=== PATIENT | female | born 2005 | race Caucasian/White ===

== ENCOUNTER 2025-04-13 16:59 | Outpatient (OUT) | payer OTHER, SELFPAY ==
[2025-04-13 17:41] LABS: Alanine Aminotransferase 20 U/L (14-59); Albumin Globulin Ratio 0.9; Albumin Level 3.7 g/dL (3.4-5.0); Alkaline Phosphatase 61 U/L (46-116); Anion Gap 16.3; Aspartate Amino Transferase 14 U/L (15-37); BUN Creatinine Ratio 13.7; Bilirubin Total 0.8 mg/dL (0.2-1.0); Calcium 9.2 mg/dL (8.5-10.1); Chloride 104 mmol/L (98-107); Estimated GFR (African America >60 (>=60 mL/min/1.73m^2); Estimated GFR (Non-African Ame >60 (>=60 mL/min/1.73m^2); Glucose 183 mg/dL (74-106); Potassium 4.3 mmol/L (3.5-5.1); Sodium 140 mmol/L (136-145); Total Protein 7.7 g/dL (6.4-8.2)
== END 2025-04-13 17:00 | disposition home or self-care (01) ==
DX: E84.8 Cystic fibrosis with other manifestations (principal)
CPT/HCPCS: 36415; 80053

== ENCOUNTER 2025-08-25 16:51 | Outpatient (OUT) | payer OTHER, SELFPAY ==
--- OUTSIDE RECORDS SUMMARY | 2025-08-16 14:45 | XMS_ITS | Encounter Summary ---
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 Name Role Phone Facundo Nina MD Primary Care Provider [phone] Source Comments In the event this information is protected by the Federal Confidentiality of Alcohol and Drug AbusePatient Records regulations: The Federal rules restrict any use of the information to criminally investigate or prosecute any alcohol or drug abuse patient.[facility] Reason for Visit * ReasonCommentsSpirometry * Outpatient Procedure (Routine) - ClosedSpecialtyDiagnoses / ProceduresReferred By ContactReferred To ContactRESPIRATORY INSTITUTE Diagnoses ABPA (allergic bronchopulmonary aspergillosis) ([facility]) Cystic fibrosis with pulmonary manifestations ([facility]) Procedures SPIROMETRY BASELINE ONLY SPMTRY W/VC EXPIRATORY DANIELA W/WO MXML VOL VNTJ Hailee Hartman, FINANCIAL BUSINESS ANALYST.AT HOME INDEPENDENT CALL CENTER AGENT [address] [place] [address] Phone: tel: fax: [facility] [address] [place] [phone] Referral IDStatusReasonStart DateExpiration DateVisits RequestedVisits [id number] Auto-Generated Referral Encounter Details DateTypeDepartmentCare Team (Latest Contact Info)Qetmrohxkyp20/28/2025 3:45 PM EDTProcedure Pulmonary Medicine [address] [address] [address], [facility] [address] [address] Spirometry Social History Tobacco UseTypesPacks/DayYears UsedDateSmoking Tobacco: NeverPassive Smoke Exposure: NeverSmokeless Tobacco: NeverAlcohol UseStandard Drinks/WeekComments Never0 (1 standard drink = 0.6 oz pure alcohol)Overall Financial Resource Strain (CARDIA)AnswerDate RecordedHow hard is it for you to pay for the very basics like food, housing, medical care, and heating?Not hard at all05/20/2025Housing Stability Vital SignAnswerDate RecordedIn the last 12 months, was there a time when you were not able to pay the mortgage or rent on time?No06/04/2024In the last 12 months, how many places have you lived?In the last 12 months, was there a time when you did not have a steady place to sleep or slept in a residential (including now)?No06/04/2024Housing Stability Vital SignAnswerDate RecordedIn the last 12 months, was there a time when you were not able to pay the mortgage or rent on time?No05/20/2025In the past 12 months, how many times have you moved where you were living?t any time in the past 12 months, were you homeless or living in a residential (including now)?No05/20/2025 Hunger Vital SignAnswerDate RecordedWithin the past 12 months, you worried that your food would run out before you got the money to buymore.Never true06/29/2025 Within the past 12 months, the food you bought just didn't last and you didn't have money to get more.Never true06/29/2025PRAPARE - TransportationAnswerDate RecordedIn the past 12 months, has lack of transportation kept you from medical appointments or from getting medications?No06/29/2025In the past 12 months, has lack of transportation kept you from meetings, work, or from getting things needed for daily living?06/29/2025Housing Stability Vital SignAnswerDate RecordedIn the last 12 months, was there a time when you were not able to pay the mortgage or rent on time?06/29/2025Number of Times Moved in the Last Year Not on file06/29/2025t any time in the past 12 months, were you homeless or living in a residential (including now)?06/29/2025HC UtilitiesAnswerDate Recorded In the past 12 months has the electric, gas, oil, or water company threatened to shut off services in your home?06/29/2025rea Deprivation IndexAnswerDate RecordedNational Score (1-100), lower number is lower [id number]/27/2025State Score (1-10), lower number is lower [id number] from: https://www.neighborhoodatlas.medicine.[facility].edu/. Last address used for [address] [facility]07/27/2025CommentsUnknownSex and Gender InformationValueDate RecordedSex Assigned at BirthNot on fileLegal SexFemale 09/03/2022 2:34 PM ESTGender IdentityNot on fileSexual OrientationNot on file documented as of this encounter Functional Status * Are you deaf or do you have serious difficulty hearing?AnswerDate of NdwxijecrkWzxbivQo42/30/2025 12:58 PM Rosario Mccullough RN * Are you blind or do you have serious difficulty seeing, even when wearing glasses?AnswerDate of NchmybrftwTypcqhSx35/30/2025 12:58 PM Rosario Mccullough RN * Do you have serious difficulty walking or climbing stairs?AnswerDate of OczycyuluqUgtabxIj42/30/2025 12:58 PM Rosario Mccullough RN * Do you have difficulty dressing or bathing?AnswerDate of AssessmentAuthorNo 02/16/2025 12:58 PM Rosario Mccullough RN * Because of a physical, mental, or emotional condition, do you have difficulty doing errands alone such as visiting a doctor's office or shopping?AnswerDate of YotznjjykgBlsmcdZq67/30/2025 12:58 PM Rosario Mccullough RN documented as of this encounter Mental Status * Because of a physical, mental, or emotional condition, do you have serious difficulty concentrating, remembering, or making decisions?AnswerEntry Date XscvwpGs50/30/2025 12:58 PM Rosario Mccullough RN documented in this encounter Plan of Treatment DateTypeDepartmentCare Team (Latest Contact Info)Xcyqohjungz96/07/2025 4:00 PM ESTOffice Visit Otolaryngology [address] [address] Sherice Castrejon MD [address] [place], [place] [id number] follow updocumented as of this encounter Procedures Procedure NamePriorityDate/TimeAssociated DiagnosisCommentsSPIROMETRY BASELINE WNMWYlyvonx11/28/2025 3:26 PM EDT ABPA (allergic bronchopulmonary aspergillosis) (HCC) Cystic fibrosis with pulmonary manifestations (HCC) documented in this encounter Results * SPIROMETRY BASELINE ONLY (08/16/2025 3:26 PM EDT)ComponentValueRef RangeTest MethodAnalysis TimePerformed AtPathologist SignatureFVC PRE (L)1.90LPULMONARY FUNCTION LABFVC PREDICTED (L)3.07LPULMONARY FUNCTION LABFVC LLN (L)2.38L PULMONARY FUNCTION LABFVC ULN (L)3.77LPULMONARY FUNCTION LABFEV1 PRE (L)1.39L PULMONARY FUNCTION LABFEV1 PREDICTED (L)2.74LPULMONARY FUNCTION LABFEV1 LLN (L)2.12LPULMONARY FUNCTION LABFEV1 ULN (L)3.33LPULMONARY FUNCTION LABFEV1/FVC PRE (%)73%PULMONARY FUNCTION LABFEV1/FVC PREDICTED (%)89%PULMONARY FUNCTION LABFEV1/FVC LLN (%)78%PULMONARY FUNCTION AEUWJU11% PRE (L/S)4.17L/SPULMONARY FUNCTION NOMVSL48% PRE (L/S00.23L/SPULMONARY FUNCTION XOUPQP22% PREDICTED (L/S)1.66L/SPULMONARY FUNCTION WXLGUT07% LLN (L/S)0.93L/SPULMONARY FUNCTION SRQGLM91% ULN (L/S)2.71L/SPULMONARY FUNCTION RPFYZO04-12% PRE (L/S)0.92L/S PULMONARY FUNCTION LRBOSA59-45% PREDICTED (L/S)3.42L/SPULMONARY FUNCTION LAB OTD76-84% LLN (L/S)2.27L/SPULMONARY FUNCTION LABPEF PRE (L/S)5.39L/SPULMONARY FUNCTION LABPEF LLN (L/S)4.84L/SPULMONARY FUNCTION LABPEF ULN (L/S)7.92L/S PULMONARY FUNCTION LABFET PRE (S)7.58SPULMONARY FUNCTION LABSpecimen (Source) Anatomical Location / LateralityCollection Method / VolumeCollection Time Received Time08/16/2025 3:26 PM EDT Narrative PULMONARY FUNCTION LAB - 08/18/2025 10:42 AM EDT [facility] ?[address] ? [address] ? [place] [address] ? Test Date: ? 2025-08-16 Pat Name: ?YANI CANO ? Department: ?Room: ? 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 Order Number: ??[id number] ? Reading MD: ?Nyla Gold MD ? Interpretive Statements Current ATS/ERS acceptability and repeatability standards for spirometry met. Start of test and EOFE criteria met. ?? //HC IMPRESSION: Spirometry indicates obstruction. The severity of obstruction cannot be graded due to the reduced FVC. The reduced FVC may be due to obstruction, however, concomitant restriction cannot be excluded, recommend lung volumes for definitive determination. Electronically Signed On 08-18-2025 10:42:38 EDT by Nyla Gold MD ID: [id number] ?Name: YANI CANO ?Race: Other Ht: 60.71 in ?Wt: 141.10 lbs ?Age: 20 Gender: Female ?: 2005 ?Dx: Cystic Fibrosis - Unspecified. ??May include CFTR disorder. Smoking Hx: Non-smoker ?Doctor: HAILEE HARTMAN Test Date: 08/16/2025 ?Site: ?Tech: Confer, Meri ?PRE-BRONCH ? POST-BRONCH ?Marcela ?LLN ?? Pred ?ULN %Pred ZScore ?? Marcela %Pred ??%Chg ZScore SPIROMETRY FVC ? 1.90 ?? 2.38 ?? 3.07 ?? 3.77 ?62 ??-2.80 ? FEV1 ?1.39 ?? 2.12 ?? 2.74 ?? 3.33 ?50 ??-3.44 ? FEV1/FVC ?0.73 ?? 0.78 ?? 0.89 ?? 0.98 ?81 ??-2.22 ? FEFMax ?5.39 ?? 4.84 ?? 6.38 ?? 7.92 ?84 ??-1.06 ? FEF50 ? 1.53 ?? 2.37 ?? 3.98 ?? 5.59 ?38 ??-2.50 ? FIF50 ? 5.18 ? FEF50/FIF50 ? 0.30 ?90-100 ? FIVC ?1.77 ? NVI36-90 ?0.92 ?? 2.27 ?? 3.42 ?? 4.72 ?26 ??-4.00 ? ExpiredTime ? 7.58 ? TimeToFEFMax ?0.08 ? GEREMIAS ? 0.06 ? VolExtrap% ? 3 ? Comments: Current ATS/ERS acceptability and repeatability standards for spirometry met. Start of test and EOFE criteria met. ?? //HC Authorizing ProviderResult TypeResult StatusColette Bucur FINANCIAL BUSINESS ANALYST.CNPSCHEDULED PROCEDURESFinal ResultPerforming OrganizationAddressCity/State/ZIP CodePhone Number PULMONARY FUNCTION LAB [address] 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
--- OUTSIDE RECORDS SUMMARY | 2025-08-16 15:00 | XMS_ITS | Encounter Summary ---
Author Organization [facility] Address [facility] [place] [address] Care Team Providers Care Flight Service Agent Name Role Phone Facundo Nina MD Primary Care Provider [phone] Source Comments In the event this information is protected by the Federal Confidentiality of Alcohol and Drug AbusePatient Records regulations: The Federal rules restrict any use of the information to criminally investigate or prosecute any alcohol or drug abuse patient.[facility] Reason for Referral * Medication Prior Authorization - ClosedSpecialtyDiagnoses / ProceduresReferred By ContactReferred To Contact Diagnoses Cystic fibrosis (HCC) Mucopurulent chronic bronchitis (HCC) Chilo Welch MD [address] [place] [address] Phone: tel: fax: Referral IDStatusReasonStart DateExpiration DateVisits RequestedVisits [id number] * Medication Prior Authorization - Pending ReviewSpecialtyDiagnoses / Procedures Referred By ContactReferred To Contact Diagnoses Cystic fibrosis (HCC) Mucopurulent chronic bronchitis (HCC) Chilo Welch MD [address] [place] [address] Phone: tel: fax: Referral IDStatusReasonStart DateExpiration DateVisits RequestedVisits [id number] * Medication Prior Authorization - Pending ReviewSpecialtyDiagnoses / Procedures Referred By ContactReferred To Contact Diagnoses Cystic fibrosis ([facility]) Chilo Welch MD [address] [place] [address] Phone: tel: fax: Referral IDStatusReasonStart DateExpiration DateVisits RequestedVisits [id number] * Medication Prior Authorization - Pending ReviewSpecialtyDiagnoses / Procedures Referred By ContactReferred To Contact Diagnoses Cystic fibrosis ([facility]) Chilo Welch MD [address] [place] [address] Phone: tel: fax: Referral IDStatusReasonStart DateExpiration DateVisits RequestedVisits [id number] * Medication Prior Authorization - ClosedSpecialtyDiagnoses / ProceduresReferred By ContactReferred To Contact Diagnoses Cystic fibrosis ([facility]) Chilo Welch MD [address] [place] [address] Phone: tel: fax: Referral IDStatusReasonStripley DateExpiration DateVisits RequestedVisits [id number] * Outpatient Procedure (Routine) - New RequestSpecialtyDiagnoses / Procedures Referred By ContactReferred To [facility] Diagnoses Cystic fibrosis ([facility]) Procedures SPIROMETRY BASELINE ONLY SPMTRY W/VC EXPIRATORY DANIELA W/WO MXML VOL VNTJ Chilo Welch MD [address] [place] [address] Phone: tel: fax: [facility] [place] [address] [place] [address] Referral IDStatusReasonStart DateExpiration DateVisits RequestedVisits [id number] Request Auto-Generated Referral / Reason for Visit * ReasonCommentsFollow Up Encounter Details DateTypeDepartmentCare Team (Latest Contact Info)Qksnanqvqru56/28/2025 4:00 PM EDTOffice Visit Pulmonary Medicine [address] [place] [address] Chilo Welch MD [address] [place] [address] Cystic fibrosis (HCC) (Primary Dx); Mucopurulent chronic bronchitis (HCC); Chronic sinusitis, unspecified location; Chronic obstructive pulmonary disease, unspecified COPD type (HCC); Chronic rhinosinusitis Social History Tobacco UseTypesPacks/DayYears UsedDateSmoking Tobacco: NeverPassive Smoke Exposure: NeverSmokeless Tobacco: Never Tobacco Cessation:Counseling Given: Not Answered Alcohol UseStandard Drinks/WeekCommentsNever0 (1 standard drink = 0.6 oz pure alcohol)Overall Financial Resource Strain (CARDIA)AnswerDate RecordedHow hard is it for you to pay for the very basics like food, housing, medical care, and heating?Not hard at all05/20/2025Housing Stability Vital SignAnswerDate Recorded In the last 12 months, was there a time when you were not able to pay the mortgage or rent on time?No06/04/2024In the last 12 months, how many places have you lived?In the last 12 months, was there a time when you did not have a steady place to sleep or slept in ashelter (including now)?No06/04/2024 Housing Stability Vital SignAnswerDate RecordedIn the last 12 months, was there a time when you were not able to pay the mortgage or rent on time?No05/20/2025In the past 12 months, how many times have you moved where you were living?1 05/20/2025t any time in the past 12 months, were you homeless or living in a assisted (including now)?No05/20/2025Hunger Vital SignAnswerDate RecordedWithin the past 12 months, you worried that your food would run out before you got the money to buymore.Never true06/29/2025Within the past 12 months, the food you bought just didn't last and you didn't have money to get more.Never true 06/29/2025PRAPARE - TransportationAnswerDate RecordedIn the past 12 months, has lack of transportation kept you from medical appointments or from getting medications?No06/29/2025In the past 12 months, has lack of transportation kept you from meetings, work, or from getting things needed for daily living?No 06/29/2025Housing Stability Vital SignAnswerDate RecordedIn the last 12 months, was there a time when you were not able to pay the mortgage or rent on time?No 06/29/2025Number of Times Moved in the Last YearNot on file06/29/2025t any time in the past 12 months, were you homeless or living in a assisted (including now)? 06/29/2025HC UtilitiesAnswerDate RecordedIn the past 12 months has the [employer], gas, oil, or water [place] threatened to shut off services in your home?06/29/2025rea Deprivation IndexAnswerDate RecordedNational Score (1- 100), lower number is lower bpaa466407/27/2025State Score (1-10), lower number is lower meqi281Data from: https://www.neighborhoodatlas.medicine.[facility].edu/. Last address used for guhvbvolgde[address]07/27/2025CommentsUnknownSex and Gender InformationValueDate RecordedSex Assigned at BirthNot on fileLegal SexFemale 09/03/2022 2:34 PM ESTGender IdentityNot on fileSexual OrientationNot on file documented as of this encounter Last Filed Vital Signs Vital SignReadingTime TakenCommentsBlood Apjyrusp005/6908/16/2025 3:20 PM EDT Zceeh67479/28/2025 3:20 PM OJULkfxutxdyvb30.6 ??C (97.8 ??F)08/16/2025 3:20 PM EDTRespiratory Wyct8802 3:20 PM EDTOxygen Ltsqvdjogn38%08/16/2025 3:20 PM EDTInhaled Oxygen Concentration--Txrefr27 kg (141 lb 1.5 oz)08/16/2025 3:20 PM EDTHeight--Body Mass Index25.8109 5:57 PM EDTdocumented in this encounter Functional Status * Are you deaf or do you have serious difficulty hearing?AnswerDate of EbgbfaxzjsPanfqkVq74/30/2025 12:58 PM Rosario Mccullough RN * Are you blind or do you have serious difficulty seeing, even when wearing glasses?AnswerDate of FvjtwdogvsVekxrtJo36/30/2025 12:58 PM Rosario Mccullough RN * Do you have serious difficulty walking or climbing stairs?AnswerDate of GrlhgdaetzAuzeeoRy97/30/2025 12:58 PM Rosario Mccullough RN * Do you have difficulty dressing or bathing?AnswerDate of AssessmentAuthorNo 02/16/2025 12:58 PM Rosario Mccullough RN * Because of a physical, mental, or emotional condition, do you have difficulty doing errands alone such as visiting a doctor's office or shopping?AnswerDate of AlxucsgqldWskjnlMq15/30/2025 12:58 PM Rosario Mccullough RN documented as of this encounter Mental Status * Because of a physical, mental, or emotional condition, do you have serious difficulty concentrating, remembering, or making decisions?AnswerEntry Date KkvlpvZm35/30/2025 12:58 PM Rosario Mccullough RN documented in this encounter Progress Notes * Chilo Welch MD - 08/16/2025 4:06 PM EDT Images from the original note were not included. History of present illness: Yani Cano is a 20 year old female presents for post hospital follow up. She felt well on discharge but 10 d she noted increase cough and sputum production JUAREZ. She started on levaquin for two weeks and feel a bit better Activity/exercise tolerance: Improved dyspnea and is near baseline Cough frequency/sputum productivity: Minimal cough and sputum production scant amounts NO fevers or chills or chest pain Sinus complaints: There is no unusual history of sinus pressure, pain or discharge. Near baseline Gastroenterology complaints: There is no history of N/V, abdominal pain, cramping bloating, indigestion, difficulty swallowing or globus Stool character: 1-2 BM daily. The stool is of normal consistency. There is no persistent problem with diarrhea or constipation. Appetite: Good Is weight is stable PsychHealth care related anxiety Review of systems was completed and is as noted below except as noted above: General/constitutional: Negative HEENT: Negative Cardiac: Negative Endocrinologic: Negative GI: Negative Genitourinary: Negative Neuro: Negative Musculoskeletal: Negative Dermatologic: Negative Psych: Negative Allregic/Immunologic-negative. Current Respiratory Regimen Inhaled therapies Hypertonic Saline: inhaled 7% HS bid Pulmozyme: inhale 2.5 mg qd Bronchodilators: Albuterol MDI Adviar and albuterol Inhaled Abx: Inhaled colisitin and ceftaz alternating CFTR Modulator Therapy: alyftrek Airway clearance therapies Vest: bid Exercise: Other: Other daily therapies: NA Azithromycin: MWF Past medical history: No past medical history on file. Allergies: Nafcillin and Sulfamethoxazole-Trimethoprim Medications: Current Outpatient Medications Medication Sig levoFLOXacin (LEVAQUIN) 750 mg tablet Take 1 tablet by mouth once daily. colistimethate (COLY-MYCIN M) 150 mg injection Inhale 2cc (150mg) twice daily every other month Syringe with Needle, Safety (3CC SAFETY SYRINGE 81ZZ4-2/2 ) 3 mL 22 gauge x 1 1/2 1 each two timesa day. To pull up sterile water to inject into colistin vial sterile water (STERILE WATER FOR INJECTION) injection 2 mL two times a day. 2 mls sterile water to be mixed with 1 vial (150 mg) colistimethate for nebulization sterile water (STERILE WATER FOR INJECTION) injection 4 mL two times a day. Mix 4 mls in 1 vial of ceftaz . Pull up 2 mls (500mg ceftaz) and nebulize twice daily Syringe with Needle, Safety (ECLIPSE SYRINGE) 3 mL 21 gauge x 1 syrg 1 Units two times a day. Pullup 4 mls sterile water and put into ceftaz vial and mix then pull up 2 mls and nebulize cefTAZidime (FORTAZ) 1 gram solr Inhale 500 mg as instructed q 12 HR. lactobacillus rhamnosus (CULTURELLE) 10 billion cell capsule Take 1 capsule by mouth once daily. albuterol HFA (PROVENTIL HFA, VENTOLIN HFA) 90 mcg/actuation inhaler INHALE 2 PUFFS BY MOUTH DAILY NEEDED azithromycin (ZITHROMAX) 500 mg tablet TAKE 1 TABLET BY MOUTH EVERY FRIDAY, FRIDAY, AND FRIDAY fluticasone (FLONASE) 50 mcg/actuation nasal spray USE 1 SPRAY IN EACH NOSTRIL ONCE A DAY omeprazole (PRILOSEC) 20 mg capsule TAKE 1 CAPSULE BY MOUTH EVERY MORNING loratadine (CLARITIN) 10 mg tablet TAKE 1 TABLET BY MOUTH EVERY DAY sodium chloride (SALINE NASAL) 0.65 % nasal spray USE 2 SPRAYS IN THE NOSE NEEDED Cholecalciferol, Vitamin D3, 125 mcg (5,000 unit) cap TAKE 1 CAPSULE BY MOUTH EVERY DAY ferrous sulfate 325 mg (65 mg iron) tablet TAKE 1 TABLET BY MOUTH EVERY OTHER DAY albuterol (PROVENTIL) 2.5 mg /3 mL (0.083 %) nebulizer solution Use 3 mL via nebulizer three times a day as needed for wheezing/shortness of breath. Inhale over 5-15 minutes dornase augie (PULMOZYME) 1 mg/mL nebulizer solution Inhale 2.5 mL as instructed once daily. water for injection, sterile syrg 4 mL two times a day. Pull up 4 ml and mix with one vial of vancomycin for nebulization Syringe with Needle, Disp, 5 mL 20 x 1 syrg Use as directed with inhaled vancomycin sodium chloride 3% solution 3 % nebulizer solution Use 4 mL via nebulizer two times a day. fluticasone propion-salmeterol 232-14 mcg/actuation Inhale 1 Inhalation as instructed two times a day. rpyeuk-ojfyvfkl-uxgdhhn (CREON 24) 24,000-76,000 -120,000 unit delayed release capsule Take 3 capsules with meals and 1 capsule with snacks. Total 12 capsules per day pseudoephedrine (SUDAFED) 30 mg tablet Take 1 tablet by mouth every 6 hours as needed. Nebulizer [facility] Please dispense tubing for nebulizer budesonide (PULMICORT) 1 mg/2 mL nebulizer solution INHALE CONTENTS OF 1 VIAL IN NEBULIZER ONCE DAILY hkpeojkonbw-jyiedyhzab-puoadwapmvfbv (ALYFTREK) 10-50-125 mg tablet Take 2 tablets by mouth once daily. acetaminophen (TYLENOL) 500 mg tablet Take 2 tablets by mouth every 8 hours as needed for fever or pain. Current Facility-Administered Medications Medication Dose Route Frequency sodium chloride 0.9 % (flush) 2-10 mL (BD POSIFLUSH) 2-10 mL INTRAVENOUS PRN lidocaine 4 % 1 application topical cream (LMX) 1 application TOPICAL PRN heparin 10 unit/mL 20-60 Units syringe (PORCINE) 20-60 Units INTRAVENOUS PRN heparin 100 unit/mL 200 Units injection 2 mL INTRAVENOUS PRN alteplase 2 mg catheter clearance solution (CATHFLO) 2 mg INTRALUMINAL BID PRN sodium chloride 0.9 % (flush) 2-10 mL (BD POSIFLUSH) 2-10 mL INTRAVENOUS PRN heparin 10 unit/mL 20-60 Units syringe (PORCINE) 20-60 Units INTRAVENOUS PRN alteplase 2 mg catheter clearance solution (CATHFLO) 2 mg INTRALUMINAL BID PRN Physical exam: BP 128/69 Pulse 116 Temp 36.6 ??C (97.8 ??F) (Temporal) Resp 16 Wt 64 kg (141 lb 1.5 oz) SpO2 98% BMI 25.81 kg/m?? General: Alert and oriented to person, place and time. The patient is well developed but near target weight and BMI. Eyes: No scleral icterus or conjunctival erythema. PERRLA HEENT: normocephalic, atraumatic. Nasal mucosa: mild to moderate mucosal edema. There is no frontal/maxillary sinus tenderness. Trachea is midline. No thyroid enlargement. Pulmonary: The patient has an increased AP chest diameter. Decreased breath sounds. Scattered rhonchi. Cardiac: regular rate and rhythm. No murmurs, rubs or gallops. No JVD. Abdomen: No hepatosplenomegaly, normal bowel sounds. No abdominal tenderness. Skin: No rashes. Warm and dry. No petechia Musculoskeletal/Extremities: No cyanosis or edema. Normal gait, 5/5 muscle strength in all extremities. Psychiatric: Normal mood and affect. The follow labs were reviewed. WBC (k/uL) Date Value 07/11/2025 7.67 RBC (m/uL) Date Value 07/11/2025 4.73 Hematocrit (%) Date Value 07/11/2025 39.0 MCV (fL) Date Value 07/11/2025 82.5 MCHC (g/dL) Date Value 07/11/2025 32.6 Platelet Count (k/uL) Date Value 07/11/2025 305 MPV (fL) Date Value 07/11/2025 10.1 INR (no units) Date Value 01/24/2025 1.1 Sodium (mmol/L) Date Value 07/11/2025 136 Potassium (mmol/L) Date Value 07/11/2025 4.2 07/19/2022 3.7 Bicarbonate, Venous (mmol/L) Date Value 01/25/2025 22 BUN (mg/dL) Date Value 07/11/2025 19 Creatinine (mg/dL) Date Value 07/11/2025 0.64 Calcium, Total (mg/dL) Date Value 07/11/2025 8.5 AST (U/L) Date Value 07/11/2025 31 ALT (U/L) Date Value 07/11/2025 18 Albumin (g/dL) Date Value 07/11/2025 3.0 Bilirubin, Total (mg/dL) Date Value 07/11/2025 0.6 No results found for: PREALB Cholesterol, Total (mg/dL) Date Value 11/19/2024 108 HDL Cholesterol (mg/dL) Date Value 11/19/2024 45 No components found for: RETVITA , ATOCOPHRVITE , VDT IgE (kU/l) Date Value 06/28/2025 385.0 No results found for: TSH , FREET4 No components found for: TESTOSTMALE , TESTOSTRNFRE The were no major concerns with this lab work Micro Steno MSSA Aspergillus/ABPA The KBU8flu trend: Latest Ref Rng & Units 08/16/2025 07/12/2025 07/06/2025 06/29/2025 Spirometry Data FVC PRE (L) L 1.90 P 2.16 1.98 1.95 FEV1 PRE (L) L 1.39 P 1.61 1.49 1.47 FEV1/FVC PRE (%) % 73 P 74 75 75 MOC34-80% PRE (L/S) L/S 0.92 P 1.15 1.12 1.21 PEF PRE (L/S) L/S 5.39 P 5.85 6.07 5.68 P Preliminary result Last Radiology study: I personally reviewed the images below and agree with the official read. Assessment and Plan: Yani Cano is a 20 year old female presents for a established visit. I amseeing this patient for ongoing nursing home management of CF which is a chronic complex medical condition with critical sinus, pulmonary, gastrointestinal, endocrine and mental health manifestations. 1) Respiratory Disease: This is a patient with moderate underlying CF lung disease. She has had a very unstable clinical course recently Her lung function is down from discharge Her symptoms have declined but are currently improving on levaquin. I reviewed her respiratory therapies and her adherence is fine . We both recognized that her clinical course is very unstable and our current approach isnot achieving the results needed. We discussed strategies that might help stabilize her clinical course. 1) Optimize inhaled therapy. Stop ICS therapy to not encourage fungal colonization. Stop the advairand least temporarily initiate nebulized LAMA/LABA therapy The orders were placed. De-escalation can be discussed after stabilization. 2) I think re-initiation of dupilimab and commit to it for at least 6 months. 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 The current approach using vori and prednisone courses. The approach I am suggesting will include * environmental mitigation * level driven posaconazole * dose adjustment of alyftrek * dupilimab RTC in one month 2) Sinusitis: There is no unusual history of sinus pressure, pain or discharge. The patient will continue the current recommended topical anti-inflammatory therapy and nasal/sinus lavages 3) Pancreatic Malabsorption/Malnutrition: There are no signs or symptoms of malabsorption. Nutritional status is stable. The current approachto pancreatic enzyme replacement as well as vitamin and calorie supplementation will be maintained. 4) The patient has no signs or symptoms of severe constipation. The patient will continue regular use of laxative therapy. Chart Preparation Time: 8 minutes Face to face clinic time: 30 minutes Case management and chart finalization: 12 minutes Chilo Welch MD [facility] Staff Physician Addendum. Insurance iw requesting a trial of anora ellipta. I will write for this but I feel the nebulized LAMA and LABA will get much better drug distribution. DJC documented in this encounter Miscellaneous Notes * Addendum Note - Chilo Welch MD - 08/22/2025 2:14 PM ESTAddended by: CHILO WELCH on: 08/22/2025 02:14 PM Modules accepted: Orders documented in this encounter Plan of Treatment DateTypeDepartmentCare Team (Latest Contact Info)Kyqhnhvcrvs71/07/2025 4:00 PM ESTOffice Visit Otolaryngology [address] [address] Sherice Castrejon MD [address] [place] [address] follow upNameTypePriorityAssociated DiagnosesDate/TimeAFB CULTURE & STAIN FOR PATIENTS WITH CYSTIC FIBROSISMicrobiologyRoutine Cystic fibrosis (HCC) 08/16/2025 3:00 PM EDTFUNGAL CULTURE AND SMEAR (NON DERMAL)MicrobiologyRoutine Cystic fibrosis ([facility]) 08/16/2025 3:00 PM EDTNameTypePriorityAssociated DiagnosesOrder Schedule SPIROMETRY BASELINE ONLYPFTRoutine Cystic fibrosis (HCC) 1 Occurrences starting 08/16/2025 until 09/15/2026documented as of this encounter Procedures Procedure NamePriorityDate/TimeAssociated DiagnosisCommentsAFB CULTURE & STAIN FOR PATIENTS WITH CYSTIC AAIMEDFIVyfttor10/28/2025 3:00 PM EDT Cystic fibrosis ([facility]) BACTERIAL CULTURE, RESPIRATORY, CYSTIC IXEJEOXMPzrzaog27/28/2025 3:00 PM EDT Cystic fibrosis (HCC) FUNGAL CULTURE AND SMEAR (NON DERMAL)Bofkeku4908/16/2025 3:00 PM EDT Cystic fibrosis (HCC) documented in this encounter Results * (ABNORMAL) BACTERIAL CULTURE, RESPIRATORY, CYSTIC FIBROSIS (08/16/2025 3:00 PM EDT)ComponentValueRef RangeTest MethodAnalysis TimePerformed AtPathologist SignatureCulture, Resp Cystic FibrosisRare Stenotrophomonas maltophilia(A) MINIMUM INHIBITORY CONCENTRATION ([place]) 08/23/2025 7:41 AM [facility] LABCulture, Resp Cystic FibrosisFew normal respiratory herlinda(A) MINIMUM INHIBITORY CONCENTRATION ([place]) 08/23/2025 7:41 AM [facility] LABCulture, Resp Cystic FibrosisRare Aspergillus species(A) MINIMUM INHIBITORY CONCENTRATION ([place]) 08/23/2025 7:41 AM [facility] LABComment:Refer to specimen collected on 08/16/2025 [address] FUNGAL CULTURE AND SMEAR (NON DERMAL) [[id number]] for species identification.Specimen (Source)Anatomical Location / LateralityCollection Method / VolumeCollection TimeReceived Time SputumSPUTUM SPECIMEN / Svbmful2608/16/2025 3:00 PM EDT1 7:[address]T [facility] MA[facility] LAB - 08/23/2025 7:41 AM EST No S. aureus, P. aeruginosa, or B. cepacia complex isolated. This test was developed and its performance characteristics determined by the [facility]'s [facility] [place] ([facility] It has not been cleared or approved by the FDA. [facility] is regulated under CLIA as qualified to perform high-complexity testing. This test is used for clinical purposes. It should not be regarded as investigational or for research. OrganismAntibioticMethodSusceptibilityStenotrophomonas maltophiliaTrimeth sulfamethMINIMUM INHIBITORY CONCENTRATION ([place]) 2: Susceptible Comment:Stenotrophomonas maltophilia is intrinsically resistant to aminoglycosides and most B-lactam agentsincluding carbapenem.Stenotrophomonas maltophiliaLevofloxacinMINIMUM INHIBITORY CONCENTRATION ([place]) 8: Resistant Stenotrophomonas maltophiliaMinocyclineMINIMUM INHIBITORY CONCENTRATION ([place]) 2: Susceptible Authorizing ProviderResult TypeResult StatusDouglas Geovanny MDMICROBIOLOGYFinal ResultPerforming OrganizationAddressCity/State/ZIP CodePhone Number [facility] [address] documented in this encounter Visit Diagnoses Diagnosis Cystic fibrosis (HCC)- Primary Cystic fibrosis without mention of meconium ileus Mucopurulent chronic bronchitis (HCC) Mucopurulent chronic bronchitis Chronic sinusitis, unspecified location Chronic obstructive pulmonary disease, unspecified COPD type (HCC) Chronic rhinosinusitis Unspecified sinusitis (chronic) documented in this encounter Care Teams Team MemberRelationshipSpecialtyStart DateEnd Date Facundo Nina MD [address] [place] [id number] PCP - GeneralPulmonary and Critical Care Medicine06/03/24documented as of this encounter
--- OUTSIDE RECORDS SUMMARY | 2025-08-17 10:40 | XMS_ITS | Encounter Summary ---
Author Organization [facility] Address [address] [place] [address] Care Team Providers Care Aircraft Technician Name Role Phone Facundo Nina MD Primary Care Provider [phone] Source Comments In the event this information is protected by the Federal Confidentiality of Alcohol and Drug AbusePatient Records regulations: The Federal rules restrict any use of the information to criminally investigate or prosecute any alcohol or drug abuse patient.[facility] Reason for Referral * Consult, Test, Treat (Routine) - New RequestSpecialtyDiagnoses / Procedures Referred By ContactReferred To Contact Diagnoses Prediabetes Procedures MEDICAL NUTRITION ASSMT&IVNTJ INDIV EACH 15 ID MEDICAL NUTRITION ASSMT&IVNTJ INDIV EACH 15 ID MEDICAL NUTRITION ASSMT&IVNTJ INDIV EACH 15 ID MEDICAL NUTRITION ASSMT&IVNTJ INDIV EACH 15 ID Cassandra La MD [facility] [address] [address] Phone: tel: fax: Referral IDStatusReasonStart DateExpiration DateVisits RequestedVisits [id number] Request PCP Requested Referral Scheduling Instructions This order is valid for 12 months from the date of order. PLEASE CALL TO SCHEDULE YOUR APPOINTMENT FOLLOWS: [facility] [phone] [place] or [place] [phone] [facility] [phone] [facility] [phone] ALL OTHER [facility] LOCATIONS [phone] This order is valid for 12 months from the date of order. Encounter Details DateTypeDepartmentCare Team (Latest Contact Info)Nxrodvczdje24/29/2025 11:40 AM EDTDisNYU [facility] [address] [place] [id number] Cassandra La MD [address] [id number] Prediabetes (Primary Dx); Cystic fibrosis with pulmonary manifestations (HCC) Social History Tobacco UseTypesPacks/DayYears UsedDateSmoking Tobacco: NeverPassive [...] place to sleep or slept in a detention (including now)?No06/04/2024Housing Stability Vital SignAnswerDate RecordedIn the last 12 months, was there a time when you were not able to pay the mortgage or rent on time?No05/20/2025In the past 12 months, how many times have you moved where you were living?t any time in the past 12 months, were you homeless or living in a detention (including now)?No05/20/2025 Hunger Vital SignAnswerDate RecordedWithin the [...] or from getting things needed for daily living?No06/29/2025Housing Stability Vital SignAnswerDate RecordedIn the last 12 months, was there a time when you were not able to pay the mortgage or rent on time?No06/29/2025Number of Times Moved in the Last Year Not on file06/29/2025t any time in the past 12 months, were you homeless or living in a detention (including now)?No06/29/2025HC UtilitiesAnswerDate Recorded In the past 12 months has the electric, gas, oil, or water company threatened to shut off services in your home?No06/29/2025rea Deprivation IndexAnswerDate RecordedNational Score (1-100), lower number is lower [id number]/27/2025State Score (1-10), lower number is lower [id number] from: https://www.neighborhoodatlas.[facility].edu/. Last address used for [address]/27/2025CommentsUnknownSex and Gender InformationValueDate RecordedSex Assigned at BirthNot on fileLegal SexFemale 09/03/2022 2:34 PM ESTGender IdentityNot on fileSexual OrientationNot on file documented as of this encounter Functional Status * Are you deaf or do you have serious difficulty hearing?AnswerDate of HlentgxrumLcuwddOx36/30/2025 12:58 PM Rosario Mccullough RN * Are you blind or do you have serious difficulty seeing, even when wearing glasses?AnswerDate of DelqbezdwiOgaofpRq42/30/2025 12:58 PM Rosario Mccullough RN * Do you have serious difficulty walking or climbing stairs?AnswerDate of DaivtygbtfTsmgoaXj74/30/2025 12:58 PM Rosario Mccullough RN * Do you have difficulty dressing or bathing?AnswerDate of AssessmentAuthorNo 02/16/2025 12:58 PM Rosario Mccullough RN * Because of a physical, mental, or emotional condition, do you have difficulty doing errands alone such as visiting a doctor's office or shopping?AnswerDate of DombfqaunwStjndtWm79/30/2025 12:58 PM Rosario Mccullough RN documented as of this encounter Mental Status * Because of a physical, mental, or emotional condition, do you have serious difficulty concentrating, remembering, or making decisions?AnswerEntry Date BoirvqIh63/30/2025 12:58 PM Rosario Mccullough RN documented in this encounter Progress Notes * Cassandra La MD - 08/17/2025 11:42 AM EDT ENDOCRINOLOGY [facility] VISIT This visit was conducted via my chart I have communicated my name and active licensure. The patient's identity and physical location wereverified at the time of this visit. The patient consents to proceed with the evaluation remotely. SUBJECTIVE: Yani Cano is a 20 year old female presents for an initial visit for the management of Pre-Diabetes in Cystic Fibrosis Cystic Fibrosis was diagnosis at age 1 The initial diagnosis of Pre-diabetes was made in Jun 2025. CFTR modulator- Trikafta previously, currently on Alyftrek Current steroid use: No She was on steroids for 3 months Nutrition: 3 meals and 1 snack Changes in weight: 10 lbs weight gain post steroids Exercise- walks regularly for 5 days, duration is 1 hr Immunization History Administered Date(s) Administered COVID-19 original vaccine, age 12+ yr, monovalent ([employer] - PURPLE TOP) 01/31/2021 02/21/2021 COVID-19 vaccine, unspecified formulation 06/07/2022 Haemophilus influenzae b (Hib PRP-T) vaccine, 4-dose series (ACTHIB, HIBERIX) 09/12/2004 Haemophilus influenzae b (Hib) vaccine, unspecified formulation 2003 2003 06/18/2004 Haemophilus influenzae b-hepatitis B (Hib-HepB) vaccine (COMVAX) 06/18/2004 diphtheria tetanus pertussis (DTaP) vaccine, pediatric (INFANRIX) 2003 2003 2003 09/12/2004 03/07/2008 hepatitis A (HepA) vaccine, adult (HAVRIX, VAQTA) 08/27/2007 03/07/2008 hepatitis B (HepB) vaccine, 3-dose series, age 20+ yr (ENGERIX-B, RECOMBIVAX HB) 2003 2003 06/18/2004 human papillomavirus (HPV4) vaccine, quadrivalent (GARDASIL) 12/22/2014 influenza (IIV3) vaccine, age 6 mo - 64 yr, trivalent, PF (AFLURIA, FLUARIX, FLULAVAL, FLUVIRIN, FLUZONE) 07/13/2025 influenza (IIV3) vaccine, trivalent (AFLURIA, FLULAVAL, FLUVIRIN, FLUZONE) 08/30/2008 07/25/2009 influenza (IIV3) vaccine, trivalent, PF (AFLURIA, FLUARIX, FLULAVAL, FLUVIRIN, FLUZONE) 08/05/2011 06/23/2012 08/26/2013 07/02/2016 influenza (IIV4) vaccine, age 6 mo - 64 yr, quadrivalent, PF (AFLURIA, FLUARIX, FLULAVAL, FLUZONE) 08/12/2017 09/03/2018 09/23/2019 08/29/2020 08/15/2022 influenza (IIV4) vaccine, quadrivalent (AFLURIA, FLULAVAL, FLUZONE) 10/11/2014 influenza (LAIV) vaccine, nasal, unspecified formulation 07/31/2010 influenza vaccine, whole virus 08/29/2005 measles mumps rubella (MMR) vaccine (M-M-R II, PRIORIX) 09/12/2004 08/30/2008 meningococcal (MenACWY-D) vaccine, quadrivalent (MENACTRA) 12/22/2014 novel influenza (E1I7-22) vaccine 11/15/2009 pneumococcal (PCV7) vaccine, 7 valent (PREVNAR 7) 2003 09/12/2004 pneumococcal conjugate (PCV13) vaccine, 13 valent (PREVNAR 13) 07/02/2016 pneumococcal vaccine, unspecified formulation 2003 2003 11/15/2009 poliovirus (IPV) vaccine, inactivated (IPOL) 2003 2003 03/26/2004 03/07/2008 tetanus diphtheria pertussis (Tdap) vaccine, age 7+ yr (ADACEL, BOOSTRIX) 12/22/2014 varicella (ROSEANNE) vaccine (VARIVAX) 06/18/2004 11/15/2009 Deferred Date(s) Deferred influenza (IIV3) vaccine, age 6 mo - 64 yr, trivalent, PF (AFLURIA, FLUARIX, FLULAVAL, FLUVIRIN, FLUZONE) 07/06/2025 Hemoglobin A1C Date Value Ref Range Status 06/28/2025 6.0 (H) 4.3 - 5.6 % Final Comment: [place] [employer] guidelines indicate that patients with HgbA1c in the range 5.7-6.4% are at increased risk for development of diabetes, and intervention by lifestyle modification may be beneficial. HgbA1c greater or equal to 6.5% is considered diagnostic of diabetes. 01/24/2025 5.5 4.3 - 5.6 % Final Comment: [employer] guidelines indicate that patients with HgbA1c in the range 5.7-6.4% are at increased risk for development of diabetes, and intervention by lifestyle modification may be beneficial. HgbA1c greater or equal to 6.5% is considered diagnostic of diabetes. 11/19/2024 5.9 (H) 4.3 - 5.6 % Final Comment: [employer] guidelines indicate that patients with HgbA1c in the range 5.7-6.4% are at increased risk for development of diabetes, and intervention by lifestyle modification may be beneficial. HgbA1c greater or equal to 6.5% is considered diagnostic of diabetes. 10/01/2024 6.0 (H) 4.3 - 5.6 % Final Comment: [employer] guidelines indicate that patients with HgbA1c in the range 5.7-6.4% are at increased risk for development of diabetes, and intervention by lifestyle modification may be beneficial. HgbA1c greater or equal to 6.5% is considered diagnostic of diabetes. 06/03/2024 5.4 4.3 - 5.6 % Final Comment: [employer] guidelines indicate that patients with HgbA1c in the range 5.7-6.4% are at increased risk for development of diabetes, and intervention by lifestyle modification may be beneficial. HgbA1c greater or equal to 6.5% is considered diagnostic of diabetes. Last DM education - No REVIEW OF SYSTEMS: GENERAL: +weight gain, No malaise or fevers CARDIOVASCULAR: Negative for chest pain, leg swelling or palpitations NEUROLOGIC: no numbness, tingling, no Paresthesias, no headaches SKIN:Negative for lesions, rash, and itching ENDOCRINE: Negative for cold or heat intolerance or goiter Current Outpatient Medications on File Prior to Visit Medication Sig arformoterol (BROVANA) 15 mcg/2 mL nebulizer solution Inhale 2 mL as instructed every 12 hours. revefenacin (YUPELRI) 175 mcg/3 mL solution for nebulization Inhale 3 mL as instructed once daily. posaconazole DR (NOXAFIL) 100 mg tablet Take 3 tablets by mouth once daily. dupilumab 200 mg/1.14 mL subcutaneous syringe (DUPIXgamesGRABR) Inject 1.14 mL subcutaneously every 2 weeks. levoFLOXacin (LEVAQUIN) 750 mg tablet Take 1 tablet by mouth once daily. colistimethate (COLY-MYCIN M) 150 mg injection Inhale 2cc (150mg) twice daily every other month Syringe with Needle, Safety (3CC SAFETY SYRINGE 62DS3-3/2 ) 3 mL 22 gauge x 1 [...] mL via nebulizer two times a day. esfzkr-erytmwry-bkjurrd (CREON 24) 24,000-76,000 -120,000 unit delayed release capsule Take 3 capsules with meals and 1 capsule with snacks. Total 12 capsules per day pseudoephedrine (SUDAFED) 30 mg tablet Take 1 tablet by mouth every 6 hours as needed. Nebulizer Accessories [facility] [place] tubing for nebulizer budesonide (PULMICORT) 1 mg/2 mL nebulizer solution INHALE CONTENTS OF 1 VIAL IN NEBULIZER ONCE DAILY kdmglheuenk-aagwrcfzub-jxtswbyhvewyj (ALYFTREK) 10-50-125 mg tablet Take 2 tablets by mouth once daily. acetaminophen (TYLENOL) 500 mg tablet Take 2 tablets by mouth every 8 hours as needed for fever or pain. Current Facility-Administered Medications on File Prior to Visit Medication sodium chloride 0.9 % (flush) 2-10 mL (BD POSIFLUSH) lidocaine 4 % 1 application topical cream (LMX) heparin 10 unit/mL 20-60 Units syringe (PORCINE) heparin 100 unit/mL 200 Units injection alteplase 2 mg catheter clearance solution (CATHFLO) sodium chloride 0.9 % (flush) 2-10 mL (BD POSIFLUSH) heparin 10 unit/mL 20-60 Units syringe (PORCINE) alteplase 2 mg catheter clearance solution (CATHFLO) ALLERGIES Allergen Reactions Nafcillin Rash swelling Sulfamethoxazole-Tr* Rash PAST MEDICAL HISTORY Diagnosis Date Cystic fibrosis (HCC) Prediabetes No past surgical history on file. FAMILY HISTORY Problem Relation Age of Onset Diabetes Mother prediabetes Cystic Fibrosis Sister SOCIAL HISTORY[1] PHYSICAL EXAM: General:alert and oriented X 3, no acute distress LAB: Hemoglobin A1C Date Value Ref Range Status 06/28/2025 6.0 (H) 4.3 - 5.6 % Final Comment: [employer] guidelines indicate that patients with HgbA1c in the range 5.7-6.4% are at increased risk for development of diabetes, and intervention by lifestyle modification may be beneficial. HgbA1c greater or equal to 6.5% is considered diagnostic of diabetes. 01/24/2025 5.5 4.3 - 5.6 % Final Comment: [employer] guidelines indicate that patients with HgbA1c in the range 5.7-6.4% are at increased risk for development of diabetes, and intervention by lifestyle modification may be beneficial. HgbA1c greater or equal to 6.5% is considered diagnostic of diabetes. 11/19/2024 5.9 (H) 4.3 - 5.6 % Final Comment: [employer] guidelines indicate that patients with HgbA1c in the range 5.7-6.4% are at increased risk for development of diabetes, and intervention by lifestyle modification may be beneficial. HgbA1c greater or equal to 6.5% is considered diagnostic of diabetes. 10/01/2024 6.0 (H) 4.3 - 5.6 % Final Comment: [employer] guidelines indicate that patients with HgbA1c in the range 5.7-6.4% are at increased risk for development of diabetes, and intervention by lifestyle modification may be beneficial. HgbA1c greater or equal to 6.5% is considered diagnostic of diabetes. 06/03/2024 5.4 4.3 - 5.6 % Final Comment: [employer] guidelines indicate that patients with HgbA1c in the range 5.7-6.4% are at increased risk for development of diabetes, and intervention by lifestyle modification may be beneficial. HgbA1c greater or equal to 6.5% is considered diagnostic of diabetes. Glucose (mg/dL) Date Value 07/11/2025 103 01/25/2022 123 Potassium (mmol/L) Date Value 07/11/2025 4.2 07/19/2022 3.7 Sodium (mmol/L) Date Value 07/11/2025 136 Chloride (mmol/L) Date Value 07/11/2025 103 CO2 (mmol/L) Date Value 07/11/2025 22 Creatinine (mg/dL) Date Value 07/11/2025 0.64 BUN (mg/dL) Date Value 07/11/2025 19 Anion Gap (mmol/L) Date Value 07/11/2025 11 Calcium, Total (mg/dL) Date Value 07/11/2025 8.5 No results found for: TSH No results found for: UALBCR Vitamin D 25 Hydroxy (ng/mL) Date Value 06/28/2025 54.0 ] ASSESSMENT/PLAN: Pre-diabetes CF 1. Glycemic Control :A1c remains in prediabetes range Previous 2 hr OGTT was normal Refer to diabetes education- low carb diet Continue physical activity I suggested the patient to monitor her BG 2 times weekly Follow up in 6 months Cassandra La MD [1] Social History Tobacco Use Smoking status: Never Passive exposure: Never Smokeless tobacco: Never Vaping Use Vaping status: Never Used Substance Use Topics Alcohol use: Never Drug use: Never documented in this encounter Plan of Treatment DateTypeDepartmentCare Team (Latest Contact Info)Xriophgweyk70/07/2025 4:00 PM ESTOffice Visit Otolaryngology [address] [address] Sherice Castrejon MD [address] [place] [address] follow upNameTypePriorityAssociated DiagnosesOrder ScheduleCONSULT TO DIABETES EDUCATION DSMEReferralRoutine Prediabetes 1 Occurrences starting 08/17/2025 until 08/17/2026documented as of this encounter Visit Diagnoses Diagnosis Prediabetes- Primary Other abnormal glucose Cystic fibrosis with pulmonary manifestations (HCC) Cystic fibrosis with pulmonary manifestations documented in this encounter Care Teams Team MemberRelationshipSpecialtyStart DateEnd Date Facundo Nina MD [address] [place] [address] PCP - GeneralPulmonary and Critical Care Medicine06/03/24documented as of this encounter
--- OUTSIDE RECORDS SUMMARY | 2025-08-25 16:56 | XMS_ITS | Encounter Summary ---
Author Organization [facility] Address [address] [place] [address] Care Team Providers Care Electric Tool Repairer Name Role Phone Facundo Nina MD Primary Care Provider [phone] Source Comments In the event this information is protected by the Federal Confidentiality of Alcohol and Drug AbusePatient Records regulations: The Federal rules restrict any use of the information to criminally investigate or prosecute any alcohol or drug abuse patient.[facility] Reason for Visit * ReasonCommentsOrdersCALLBACK REQUEST - to [facility] - [phone] - RE: Pt. Yani Rachael - [id number]: Essence is a pt. of Dr Small... the pharmacy called to check the status of a prior authorization on Rx Dupixent. Thanks much! Encounter Details DateTypeDepartmentCare Team (Latest Contact Info)Zgicdameqrw97/04/2025Telephone Pulmonary Medicine [address] [place] [address] Chilo Small MD [address] [place] [address] Orders (CALLBACK REQUEST - to [facility] - [phone] - RE: Pt. Yani Cano - [id number]/Message: Essence is a pt. of Dr Small... the pharmacy called to check the status of a prior authorization on Rx Dupixent. Thanks much! /) Social History Tobacco UseTypesPacks/DayYears UsedDateSmoking Tobacco: NeverPassive [...] place to sleep or slept in a mcfp (including now)?No06/04/2024Housing Stability Vital SignAnswerDate RecordedIn the last 12 months, was there a time when you were not able to pay the mortgage or rent on time?No05/20/2025In the past 12 months, how many times have you moved where you were living?t any time in the past 12 months, were you homeless or living in a mcfp (including now)?No05/20/2025 Hunger Vital SignAnswerDate RecordedWithin the [...] were you homeless or living in a mcfp (including now)?06/29/2025HC UtilitiesAnswerDate Recorded In the past 12 months has the [employer], gas, oil, or water [employer] threatened to shut off services in your home?No06/29/2025rea Deprivation IndexAnswerDate RecordedNational Score (1-100), lower number is lower [id number]/27/2025State Score (1-10), lower number is lower [id number] from: https://www.neighborhoodatlas.[facility].edu/. Last address used for [address] [facility]07/27/2025CommentsUnknownSex and Gender InformationValueDate RecordedSex Assigned at BirthNot on fileLegal SexFemale 09/03/2022 2:34 PM ESTGender IdentityNot on fileSexual OrientationNot on file documented as of this encounter Functional Status * Are you deaf or do you have serious difficulty hearing?AnswerDate of FkzbhihphaQpzmkpOh26/30/2025 12:58 PM Rosario Mccullough RN * Are you blind or do you have serious difficulty seeing, even when wearing glasses?AnswerDate of HyeqrxapoiWucjowMa20/30/2025 12:58 PM Rosario Mccullough RN * Do you have serious difficulty walking or climbing stairs?AnswerDate of VuysazaqhlFwgogvUi73/30/2025 12:58 PM Rosario Mccullough RN * Do you have difficulty dressing or bathing?AnswerDate of AssessmentAuthorNo 02/16/2025 12:58 PM Rosario Mccullough RN * Because of a physical, mental, or emotional condition, do you have difficulty doing errands alone such as visiting a doctor's office or shopping?AnswerDate of XavamwsrmlYlslteQe50/30/2025 12:58 PM Rosario Mccullough RN documented as of this encounter Mental Status * Because of a physical, mental, or emotional condition, do you have serious difficulty concentrating, remembering, or making decisions?AnswerEntry Date BgqijuJo21/30/2025 12:58 PM Rosario Mccullough RN documented in this encounter Miscellaneous Notes * Telephone Encounter - Natalie Gonzalez RN - 08/23/2025 11:48 AM EST Called pharmacy back and explained that we have assistance from the Pulm Dept with these prior authorizations and can update them once I receive follow up from them * Telephone Encounter - Emilie Rivas - 08/23/2025 10:33 AM ESTSummary: dupixent CALLBACK REQUEST - to [facility] - [phone] - RE: Pt. Yani Cano - [id number] Message: Essence is a pt. of Dr Small... the pharmacy called to check the status of a prior authorization on Rx Dupixent. Thanks much! [facility] pharmacy [phone] Wanted to know status of dupixent documented in this encounter Plan of Treatment DateTypeDepartmentCare Team (Latest Contact Info)Uvtoggufdrt30/07/2025 4:00 PM ESTOffice Visit Otolaryngology [address] [place] [address] Sherice Castrejon MD [address] [place] [address] follow updocumented as of this encounter Visit Diagnoses Not on filedocumented in this encounter Care Teams Team MemberRelationshipSpecialtyStart DateEnd Date Facundo Nina MD [address] [address] PCP - GeneralPulmonary and Critical Care Medicine06/03/24documented as of this encounter
--- OUTSIDE RECORDS SUMMARY | 2025-08-25 16:56 | XMS_ITS | Encounter Summary ---
Author Organization [facility] Address [address] [place] [address] Care Team Providers Care Dye Range Operator Name Role Phone Facundo Nina MD Primary Care Provider [phone] Source Comments In the event this information is protected by the Federal Confidentiality of Alcohol and Drug AbusePatient Records regulations: The Federal rules restrict any use of the information to criminally investigate or prosecute any alcohol or drug abuse patient.[facility] Encounter Details DateTypeDepartmentCare Team (Latest Contact Info)Zeziwvedjzj47/06/2025Telephone Pulmonary Medicine [address] [phone] [place] [address] [place] [address] Social History Tobacco UseTypesPacks/DayYears UsedDateSmoking Tobacco: NeverPassive [...] place to sleep or slept in a [place] (including now)?No06/04/2024Housing Stability Vital SignAnswerDate RecordedIn the last 12 months, was there a time when you were not able to pay the mortgage or rent on time?No05/20/2025In the past 12 months, how many times have you moved where you were living?t any time in the past 12 months, were you homeless or living in a [place] (including now)?No05/20/2025 Hunger Vital SignAnswerDate RecordedWithin the [...] were you homeless or living in a [place] (including now)?06/29/2025HC UtilitiesAnswerDate Recorded In the past 12 months has the [employer], [employer], oil, or water [employer] threatened to shut off services in your home?06/29/2025rea Deprivation IndexAnswerDate RecordedNational Score (1-100), lower number is lower hqja800407/27/2025State Score (1-10), lower number is lower zvck529Data from: https://www.neighborhoodatlas.medicine.[facility].edu/. Last address used for q[address]zess[address]/27/2025CommentsUnknownSex and Gender InformationValueDate RecordedSex Assigned at BirthNot on fileLegal SexFemale 09/03/2022 2:34 PM ESTGender IdentityNot on fileSexual OrientationNot on file documented as of this encounter Functional Status * Are you deaf or do you have serious difficulty hearing?AnswerDate of CykswtkwfbVnuootOv14/30/2025 12:58 PM Rosario Mccullough RN * Are you blind or do you have serious difficulty seeing, even when wearing glasses?AnswerDate of GyjuylflytNepxjeZk32/30/2025 12:58 PM Rosario Mccullough RN * Do you have serious difficulty walking or climbing stairs?AnswerDate of PyfckrtqfrTksmnhJc53/30/2025 12:58 PM Rosario Mccullough RN * Do you have difficulty dressing or bathing?AnswerDate of AssessmentAuthorNo 02/16/2025 12:58 PM Rosario Mccullough RN * Because of a physical, mental, or emotional condition, do you have difficulty doing errands alone such as visiting a doctor's office or shopping?AnswerDate of TbgaflasliOesrymPi07/30/2025 12:58 PM Rosario Mccullough RN documented as of this encounter Mental Status * Because of a physical, mental, or emotional condition, do you have serious difficulty concentrating, remembering, or making decisions?AnswerEntry Date IufcjoHb05/30/2025 12:58 PM Rosario Mccullough RN documented in this encounter Miscellaneous Notes * Telephone Encounter - Serafin Hawley - 08/25/2025 12:25 PM EST DESMOND CALLED LOOKING INTO THIS PT PA FOP DUPIXENT THEY STATES THAT INSURANCE DENIED IT NEEDS A PEER TO PEER documented in this encounter Plan of Treatment DateTypeDepartmentCare Team (Latest Contact Info)Knjesogcwpd09/07/2025 4:00 PM ESTOffice Visit Otolaryngology [address] [place] [address] Sherice Castrejon MD [address] [place] [address] follow updocumented as of this encounter Visit Diagnoses Not on filedocumented in this encounter Care Teams Team MemberRelationshipSpecialtyStart DateEnd Date Facundo Nina MD [address] [place] [address] PCP - GeneralPulmonary and Critical Care Medicine06/03/24documented as of this encounter
--- OUTSIDE RECORDS SUMMARY | 2025-08-25 16:56 | XMS_ITS | Encounter Summary ---
Author Organization [facility] Address [address] [place] [address] Care Team Providers Care Lens Engraver Name Role Phone Facundo Nina MD Primary Care Provider [phone] Source Comments In the event this information is protected by the Federal Confidentiality of Alcohol and Drug AbusePatient Records regulations: The Federal rules restrict any use of the information to criminally investigate or prosecute any alcohol or drug abuse patient.[facility] Reason for Visit * ReasonCommentsMedication PreauthorizationDupixent - NEW Encounter Details DateTypeDepartmentCare Team (Latest Contact Info)Sxvclfjubte68/06/2025Patient Update Pulmonary Medicine [address] [address] Chilo Small MD [address] [place] [address] Medication Preauthorization (Dupixent - NEW) Social History Tobacco UseTypesPacks/DayYears UsedDateSmoking Tobacco: NeverPassive [...] place to sleep or slept in a prison (including now)?No06/04/2024Housing Stability Vital SignAnswerDate RecordedIn the last 12 months, was there a time when you were not able to pay the mortgage or rent on time?No05/20/2025In the past 12 months, how many times have you moved where you were living?t any time in the past 12 months, were you homeless or living in a prison (including now)?No05/20/2025 Hunger Vital SignAnswerDate RecordedWithin the [...] were you homeless or living in a prison (including now)?No06/29/2025HC UtilitiesAnswerDate Recorded In the past 12 months has the [employer], gas, oil, or water [employer] threatened to shut off services in your home?No06/29/2025rea Deprivation IndexAnswerDate RecordedNational Score (1-100), lower number is lower xzwm351507/27/2025State Score (1-10), lower number is lower utxv987Data from: https://www.neighborhoodatlas.[facility]/. Last address used for ttcmrkovzqm[address]07/[address]/[address]25CommentsUnknownSex and Gender InformationValueDate RecordedSex Assigned at BirthNot on fileLegal SexFemale 09/03/2022 2:34 PM ESTGender IdentityNot on fileSexual OrientationNot on file documented as of this encounter Functional Status * Are you deaf or do you have serious difficulty hearing?AnswerDate of XuoomhkozbRuxpntCd12/30/2025 12:58 PM Rosario Mccullough RN * Are you blind or do you have serious difficulty seeing, even when wearing glasses?AnswerDate of WdmrenhylyFxfideCc02/30/2025 12:58 PM Rosario Mccullough RN * Do you have serious difficulty walking or climbing stairs?AnswerDate of VkyufkixsuYiwpsjCh96/30/2025 12:58 PM Rosario Mccullough RN * Do you have difficulty dressing or bathing?AnswerDate of AssessmentAuthorNo 02/16/2025 12:58 PM Rosario Mccullough RN * Because of a physical, mental, or emotional condition, do you have difficulty doing errands alone such as visiting a doctor's office or shopping?AnswerDate of XcxkukcxjwKfjjzlIo41/30/2025 12:58 PM Rosario Mccullough RN documented as of this encounter Mental Status * Because of a physical, mental, or emotional condition, do you have serious difficulty concentrating, remembering, or making decisions?AnswerEntry Date EjqlqjCb16/30/2025 12:58 PM Rosario Mccullough RN documented in this encounter Plan of Treatment DateTypeDepartmentCare Team (Latest Contact Info)Aztsrylelcr40/07/2025 4:00 PM ESTOffice Visit Otolaryngology [address] [address] Sherice Castrejon MD [address] [place] [address] follow updocumented as of this encounter Visit Diagnoses Diagnosis Chronic obstructive pulmonary disease, unspecified COPD type (HCC)- Primary documented in this encounter Care Teams Team MemberRelationshipSpecialtyStart DateEnd Date Facundo Nina MD [address] [place] [address] PCP - GeneralPulmonary and Critical Care Medicine06/03/24documented as of this encounter
--- OUTSIDE RECORDS SUMMARY | 2025-08-25 16:56 | XMS_ITS | Encounter Summary ---
Author Organization [facility] Address [address] [place] [address] Care Team Providers Care Land Survey Technician Name Role Phone Facundo Nina MD Primary Care Provider [phone] Source Comments In the event this information is protected by the Federal Confidentiality of Alcohol and Drug AbusePatient Records regulations: The Federal rules restrict any use of the information to criminally investigate or prosecute any alcohol or drug abuse patient.[facility] Reason for Visit * ReasonCommentsPatient UpdateAll over severe muscle pain Encounter Details DateTypeDepartmentCare Team (Latest Contact Info)Wfeawmggsmc54/05/2025Telephone Pulmonary Medicine [address] [place] [address] Tanesha Pillai LISW Patient Update (All over severe muscle pain) Social History Tobacco UseTypesPacks/DayYears UsedDateSmoking Tobacco: NeverPassive [...] place to sleep or slept in a long term (including now)?No06/04/2024Housing Stability Vital SignAnswerDate RecordedIn the last 12 months, was there a time when you were not able to pay the mortgage or rent on time?No05/20/2025In the past 12 months, how many times have you moved where you were living?t any time in the past 12 months, were you homeless or living in a long term (including now)?No05/20/2025 Hunger Vital SignAnswerDate RecordedWithin the [...] were you homeless or living in a long term (including now)?06/29/2025HC UtilitiesAnswerDate Recorded In the past 12 months has the [employer], gas, oil, or water [employer] threatened to shut off services in your home?06/29/2025rea Deprivation IndexAnswerDate RecordedNational Score (1-100), lower number is lower gxbv128207/27/2025State Score (1-10), lower number is lower odwg172Data from: https://www.neighborhoodatlas.[facility].edu/. Last address used for [address]/27/[address]25CommentsUnknownSex and Gender InformationValueDate RecordedSex Assigned at BirthNot on fileLegal SexFemale 09/03/2022 2:34 PM ESTGender IdentityNot on fileSexual OrientationNot on file documented as of this encounter Functional Status * Are you deaf or do you have serious difficulty hearing?AnswerDate of KqjchyhvmgDlilzzMu69/30/2025 12:58 PM Rosario Mccullough RN * Are you blind or do you have serious difficulty seeing, even when wearing glasses?AnswerDate of WsviyalukrSjjwiyYr88/30/2025 12:58 PM Rosario Mccullough RN * Do you have serious difficulty walking or climbing stairs?AnswerDate of SvbcihsdzkTtrskvEi20/30/2025 12:58 PM Rosario Mccullough RN * Do you have difficulty dressing or bathing?AnswerDate of AssessmentAuthorNo 02/16/2025 12:58 PM Rosario Mccullough RN * Because of a physical, mental, or emotional condition, do you have difficulty doing errands alone such as visiting a doctor's office or shopping?AnswerDate of QrvyohqxygWkrwmwZm08/30/2025 12:58 PM Rosario Mccullough RN documented as of this encounter Mental Status * Because of a physical, mental, or emotional condition, do you have serious difficulty concentrating, remembering, or making decisions?AnswerEntry Date LlukprVi16/30/2025 12:58 PM Rosario Mccullough RN documented in this encounter Miscellaneous Notes * Telephone Encounter - Tanesha PillaiFELI - 08/24/2025 5:18 PM EST Spoke to CF AVELINO Seo re: symptoms and timeline for pts muscle/joint pain. Appears to be unrelated to any new treatments. Pt mentioned that she and sibling had low potassium in the past and have readthat the aformoterol can cause a loss of potassium. Aformoterol was started day after last visit (7days ago) and feels that symptoms worsened after starting that medication. CERTIFIED TUMOR REGISTRAR recommended due to severity and worsening of symptoms and not pulmonary related, pt and siblinggo to ED for further evaluation and lab work. Spoke with pt and sibling on speaker phone. Pt and sibling declined to go to ED, and then again requested potassium level and labs. RN sent lab requisition letters sent to pt via [email or web address]. Updated pt and sibling on plan of care. Advised if worsening symptoms or change in symptoms, go to nearest ED. CF CERTIFIED TUMOR REGISTRAR advised and agreed with plan of care. Sibling also asking about interaction with afomoterol and sudafed because pt and sibling do take sudafed occasionally. Will discuss with MD tomorrow. Will f/u with pt tomorrow. * Telephone Encounter - Tanesha Pillai LISW - 08/24/2025 4:41 PM EST Re-contacted by pt re: update on any labs needed for severe all over muscle/joint pain. Spoke with pt. Onset about 10 days ago. Both pt and twin sibling woke up with sore muscles in neck,hips, legs, arms but got better throughout the day. As of 4 days ago, pain has continued throughoutthe day and is severe. Pt and sibling continue on high dose ibuprofen, no new medications, no fever, no cough, no other symptoms. Briefly spoke to pts mom who stated pain for them was severe when trying to move and when sitting still. Discussed / RN. Awaiting discussion w/ . documented in this encounter Plan of Treatment DateTypeDepartmentCare Team (Latest Contact Info)Hxeudobsvcc39/07/2025 4:00 PM ESTOffice Visit Otolaryngology [address] [address] Sherice Castrejon MD [address] [place] [address] follow updocumented as of this encounter Visit Diagnoses Not on filedocumented in this encounter Care Teams Team MemberRelationshipSpecialtyStart DateEnd Date Facundo Nina MD [address] [place] [address] PCP - GeneralPulmonary and Critical Care Medicine06/03/24documented as of this encounter
--- OUTSIDE RECORDS SUMMARY | 2025-08-25 16:56 | XMS_ITS | Encounter Summary ---
Author Organization [facility] Address [address] [place] [address] Care Team Providers Care Ghost Writer Name Role Phone Facundo Nina MD Primary Care Provider [phone] Source Comments In the event this information is protected by the Federal Confidentiality of Alcohol and Drug AbusePatient Records regulations: The Federal rules restrict any use of the information to criminally investigate or prosecute any alcohol or drug abuse patient.[facility] Reason for Visit * ReasonCommentsMedication Authorizationwalgreens Encounter Details DateTypeDepartmentCare Team (Latest Contact Info)Gpyubisvzvf26/31/2025Telephone Pulmonary Medicine [address] [phone] Chilo Small MD [address] [place] [address] Medication Authorization (s) Social History Tobacco UseTypesPacks/DayYears UsedDateSmoking Tobacco: NeverPassive [...] place to sleep or slept in a half-way (including now)?No06/04/2024Housing Stability Vital SignAnswerDate RecordedIn the last 12 months, was there a time when you were not able to pay the mortgage or rent on time?No05/20/2025In the past 12 months, how many times have you moved where you were living?t any time in the past 12 months, were you homeless or living in a half-way (including now)?No05/20/2025 Hunger Vital SignAnswerDate RecordedWithin the [...] were you homeless or living in a half-way (including now)?No06/29/2025HC UtilitiesAnswerDate Recorded In the past 12 months has the [employer], gas, oil, or water [employer] threatened to shut off services in your home?No06/29/2025rea Deprivation IndexAnswerDate RecordedNational Score (1-100), lower number is lower psfl349007/27/2025State Score (1-10), lower number is lower gsow524Data from: https://www.neighborhoodatlas.medicine.[facility]/. Last address used for phgatzcmika[address]07/27/[address]25CommentsUnknownSex and Gender InformationValueDate RecordedSex Assigned at BirthNot on fileLegal SexFemale 09/03/2022 2:34 PM ESTGender IdentityNot on fileSexual OrientationNot on file documented as of this encounter Functional Status * Are you deaf or do you have serious difficulty hearing?AnswerDate of BpngsozpnaPcfkwwHw26/30/2025 12:58 PM Rosario Mccullough RN * Are you blind or do you have serious difficulty seeing, even when wearing glasses?AnswerDate of JllbjlollhQnyaylOv46/30/2025 12:58 PM Rosario Mccullough RN * Do you have serious difficulty walking or climbing stairs?AnswerDate of LikhcryoldVrndyjAm70/30/2025 12:58 PM Rosario Mccullough RN * Do you have difficulty dressing or bathing?AnswerDate of AssessmentAuthorNo 02/16/2025 12:58 PM Rosario Mccullough RN * Because of a physical, mental, or emotional condition, do you have difficulty doing errands alone such as visiting a doctor's office or shopping?AnswerDate of FngnmcbqddQodokhTq89/30/2025 12:58 PM Rosario Mccullough RN documented as of this encounter Mental Status * Because of a physical, mental, or emotional condition, do you have serious difficulty concentrating, remembering, or making decisions?AnswerEntry Date LcdfhhFy65/30/2025 12:58 PM Rosario Mccullough RN documented in this encounter Miscellaneous Notes * Telephone Encounter - Natalie Gonzalez RN - 08/22/2025 10:56 AM EST Routed DOC note to [facility] Dept that assists with the Dupixent prior authorization * Telephone Encounter - Emilie Rivas - 08/19/2025 9:34 AM EDTSummary: dupixent prior authorization Images from the original note were not included. Imported fax from [email or web address] (dated 08.19.2025). Please allow time delay for documents to appear in Epic (Scanned Documents Tab). documented in this encounter Plan of Treatment DateTypeDepartmentCare Team (Latest Contact Info)Vdvcpwgittp24/07/2025 4:00 PM ESTOffice Visit Otolaryngology [address] [place] [address] [phone] Sherice Castrejon MD [address] [place] [address] follow updocumented as of this encounter Visit Diagnoses Not on filedocumented in this encounter Care Teams Team MemberRelationshipSpecialtyStart DateEnd Date Facundo Nina MD [address] [address] PCP - GeneralPulmonary and Critical Care Medicine06/03/24documented as of this encounter
--- OUTSIDE RECORDS SUMMARY | 2025-08-25 16:56 | XMS_ITS | Encounter Summary ---
Author Organization [facility] Address [address] [place] [address] Care Team Providers Care Research Program Manager Name Role Phone Facundo Nina MD Primary Care Provider [phone] Source Comments In the event this information is protected by the Federal Confidentiality of Alcohol and Drug AbusePatient Records regulations: The Federal rules restrict any use of the information to criminally investigate or prosecute any alcohol or drug abuse patient.[facility] Encounter Details DateTypeDepartmentCare Team (Latest Contact Info)Qtmwmndeune64/03/2025 Patient Msg Pulmonary Medicine [address] [place] [phone] Tanesha Pillai LISW Yupelri Social History Tobacco UseTypesPacks/DayYears UsedDateSmoking Tobacco: NeverPassive [...] place to sleep or slept in a intermediate (including now)?No06/04/2024Housing Stability Vital SignAnswerDate RecordedIn the last 12 months, was there a time when you were not able to pay the mortgage or rent on time?No05/20/2025In the past 12 months, how many times have you moved where you were living?t any time in the past 12 months, were you homeless or living in a intermediate (including now)?No05/20/2025 Hunger Vital SignAnswerDate RecordedWithin the [...] were you homeless or living in a intermediate (including now)?06/29/2025HC UtilitiesAnswerDate Recorded In the past 12 months has the [employer], [employer], or water [employer] threatened to shut off services in your home?No06/29/2025rea Deprivation IndexAnswerDate RecordedNational Score (1-100), lower number is lower slea036607/27/2025State Score (1-10), lower number is lower byuy481Data from: https://www.neighborhoodatlas.[facility]/. Last address used for [address]07/27/2025CommentsUnknownSex and Gender InformationValueDate RecordedSex Assigned at BirthNot on fileLegal SexFemale 09/03/2022 2:34 PM ESTGender IdentityNot on fileSexual OrientationNot on file documented as of this encounter Functional Status * Are you deaf or do you have serious difficulty hearing?AnswerDate of FnaqmhiwgpRarrlnFk31/30/2025 12:58 PM Rosario Mccullough RN * Are you blind or do you have serious difficulty seeing, even when wearing glasses?AnswerDate of VjfwmrdlkyNxooubTm90/30/2025 12:58 PM Rosario Mccullough RN * Do you have serious difficulty walking or climbing stairs?AnswerDate of XughusplmqQjtiuwDl15/30/2025 12:58 PM Rosario Mccullough RN * Do you have difficulty dressing or bathing?AnswerDate of AssessmentAuthorNo 02/16/2025 12:58 PM Rosario Mccullough RN * Because of a physical, mental, or emotional condition, do you have difficulty doing errands alone such as visiting a doctor's office or shopping?AnswerDate of EkfatcvbekHwwnyjJo06/30/2025 12:58 PM Rosario Mccullough RN documented as of this encounter Mental Status * Because of a physical, mental, or emotional condition, do you have serious difficulty concentrating, remembering, or making decisions?AnswerEntry Date UiliqhYy51/30/2025 12:58 PM Rosario Mccullough RN documented in this encounter Plan of Treatment DateTypeDepartmentCare Team (Latest Contact Info)Zcpdzwvbabm27/07/2025 4:00 PM ESTOffice Visit Otolaryngology [address] [address] Sherice Castrejon MD [address] [place] [address] follow updocumented as of this encounter Visit Diagnoses Not on filedocumented in this encounter Care Teams Team MemberRelationshipSpecialtyStart DateEnd Date Facundo Nina MD [address] [place] [address] PCP - GeneralPulmonary and Critical Care Medicine06/03/24documented as of this encounter
--- OUTSIDE RECORDS SUMMARY | 2025-08-25 16:56 | XMS_ITS | Encounter Summary ---
Author Organization [facility] Address [address] [place] [address] Care Team Providers Care Survey Project Manager Name Role Phone Facundo Nina MD Primary Care Provider [phone] Source Comments In the event this information is protected by the Federal Confidentiality of Alcohol and Drug AbusePatient Records regulations: The Federal rules restrict any use of the information to criminally investigate or prosecute any alcohol or drug abuse patient.[facility] Reason for Visit * ReasonCommentsMedication AuthorizationCover my medsPrior Authorization Posacanozole Encounter Details DateTypeDepartmentCare Team (Latest Contact Info)Hlyvsoswlhj82/31/2025Telephone Pulmonary Medicine [address] [address] Chilo Small MD [address] [place] [address] Medication Authorization (Cover my meds); Prior Authorization (Posacanozole) Social History Tobacco UseTypesPacks/DayYears UsedDateSmoking Tobacco: NeverPassive Smoke Exposure: NeverSmokeless Tobacco: NeverAlcohol UseStandard Drinks/WeekComments Never0 (1 standard drink = 0.6 oz pure alcohol)Overall Financial Resource Strain ([facility])AnswerDate RecordedHow hard is it for you to [...] has the electric, gas, oil, or water [employer] threatened to shut off services in your home?No06/29/2025rea Deprivation IndexAnswerDate RecordedNational Score (1-100), lower number is lower xama611407/27/2025State Score (1-10), lower number is lower gwka471Data from: https://www.neighborhoodatlas.[facility].edu/. Last address used for [address] 07/27/2025CommentsUnknownSex and Gender InformationValueDate RecordedSex Assigned at BirthNot on fileLegal SexFemale 09/03/2022 2:34 PM ESTGender IdentityNot on fileSexual OrientationNot on file documented as of this encounter Functional Status * Are you deaf or do you have serious difficulty hearing?AnswerDate of DnnafmnezjYcbdnjRu99/30/2025 12:58 PM Rosario Mccullough RN * Are you blind or do you have serious difficulty seeing, even when wearing glasses?AnswerDate of AtqxdwzoenGaqckeHv44/30/2025 12:58 PM Rosario Mccullough RN * Do you have serious difficulty walking or climbing stairs?AnswerDate of ZfcknssqvyUyjtatWi35/30/2025 12:58 PM Rosario Mccullough RN * Do you have difficulty dressing or bathing?AnswerDate of AssessmentAuthorNo 02/16/2025 12:58 PM Rosario Mccullough RN * Because of a physical, mental, or emotional condition, do you have difficulty doing errands alone such as visiting a doctor's office or shopping?AnswerDate of RxgqwqusecZvvrsoVt39/30/2025 12:58 PM Rosario Mccullough RN documented as of this encounter Mental Status * Because of a physical, mental, or emotional condition, do you have serious difficulty concentrating, remembering, or making decisions?AnswerEntry Date VddrdeHq63/30/2025 12:58 PM Rosario Mccullough RN documented in this encounter Miscellaneous Notes * Telephone Encounter - Tanesha Pillai LISW - 08/19/2025 4:17 PM EDT Images from the original note were not included. Medication: Posaconozole Date Submitted: August 19, 2025 Prescribing Provider: Geovanny Method of Submission: CMM Outcome: Approved Outcome Date: 08/19/25 FELI Olmstead * Telephone Encounter - Emilie Rivas - 08/19/2025 11:12 AM EDTSummary: posaconazole 100mg dr tablets Images from the original note were not included. Imported fax from [employer] (dated [phone]). Please allow time delay for documents to appear in [employer] (Scanned Documents Tab). documented in this encounter Plan of Treatment DateTypeDepartmentCare Team (Latest Contact Info)Nxqflvquvkp85/07/2025 4:00 PM ESTOffice Visit Otolaryngology [address] [place] [address] Sherice Castrejon MD [address] [place] [address] follow updocumented as of this encounter Visit Diagnoses Not on filedocumented in this encounter Care Teams Team MemberRelationshipSpecialtyStart DateEnd Date Facundo Nina MD [address] [place] [address] PCP - GeneralPulmonary and Critical Care Medicine06/03/24documented as of this encounter
--- OUTSIDE RECORDS SUMMARY | 2025-08-25 16:56 | XMS_ITS | Encounter Summary ---
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 Name Role Phone Facundo Nina MD Primary Care Provider [phone] Source Comments In the event this information is protected by the Federal Confidentiality of Alcohol and Drug AbusePatient Records regulations: The Federal rules restrict any use of the information to criminally investigate or prosecute any alcohol or drug abuse patient.[facility] Reason for Visit * ReasonCommentsMedication PreauthorizationDupixent - NEW Encounter Details DateTypeDepartmentCare Team (Latest Contact Info)Upijkpsfoos67/04/2025Patient Update Pulmonary Medicine [address] [address] Chilo Small MD [address] [place] [address] Medication Preauthorization (Dupixent - NEW) [...] place to sleep or slept in a assisted (including now)?No06/04/2024Housing Stability Vital SignAnswerDate RecordedIn the last 12 months, was there a time when you were not able to pay the mortgage or rent on time?No05/20/2025In the past 12 months, how many times have you moved where you were living?t any time in the past 12 months, were you homeless or living in a assisted (including now)?No05/20/2025 Hunger Vital SignAnswerDate RecordedWithin the [...] homeless or living in a assisted (including now)?No06/29/2025HC UtilitiesAnswerDate Recorded In the past 12 months has the [employer], gas, oil, or water [employer] threatened to shut off services in your home?No06/29/2025rea Deprivation IndexAnswerDate RecordedNational Score (1-100), lower number is lower pwxq763307/27/2025State Score (1-10), lower number is lower qxqb565Data from: https://www.neighborhoodatlas.medicine.[facility]/. Last address used for [address]/27/[address]25CommentsUnknownSex and Gender InformationValueDate RecordedSex Assigned at BirthNot on fileLegal SexFemale 09/03/2022 2:34 PM ESTGender IdentityNot on fileSexual OrientationNot on file documented as of this encounter Functional Status * Are you deaf or do you have serious difficulty hearing?AnswerDate of ZwynhbxnttQcpftkUi39/30/2025 12:58 PM Rosario Mccullough RN * Are you blind or do you have serious difficulty seeing, even when wearing glasses?AnswerDate of MmaeowhxjfLksnsxJb08/30/2025 12:58 PM Rosario Mccullough RN * Do you have serious difficulty walking or climbing stairs?AnswerDate of XymxasmudjUcmxblXu85/30/2025 12:58 PM Rosario Mccullough RN * Do you have difficulty dressing or bathing?AnswerDate of AssessmentAuthorNo 02/16/2025 12:58 PM Rosario Mccullough RN * Because of a physical, mental, or emotional condition, do you have difficulty doing errands alone such as visiting a doctor's office or shopping?AnswerDate of PsxulwqzmjZsidbtVz43/30/2025 12:58 PM Rosario Mccullough RN documented as of this encounter Mental Status * Because of a physical, mental, or emotional condition, do you have serious difficulty concentrating, remembering, or making decisions?AnswerEntry Date OdvvzhCz05/30/2025 12:58 PM Rosario Mccullough RN documented in this encounter Progress Notes * Lidia Jara - 08/23/2025 4:13 PM EST [employer] PRIOR AUTH; please DO NOT document within this note PA Spaulding - ID: [id number] PA Form: [place] [employer] [facility] Prior Authorization Form Diagnosis: J44.9 - Chronic obstructive pulmonary disease, unspecified COPD type Medication: Dupixent 200MG/1.14ML syringes Sig: Inject 1.14 mL subcutaneously every 2 weeks New Start / Date of 1st injection: NEW Benefit type: Pharmacy Plan name: KENZIE PBM: DOROTEO PA Initiated: August 23, 2025 Submitted: Same day, to [facility] Member Services Status: Pending outcome within 5 business days Auth ID: [id number] Outcome: Denied; Off label usage Per Doroteo Prior Auth Rep, 200 mg Dupixent, is not FDA approved for the treatment of COPD. Provider notified, case closed until next steps are decided. Appeal Initiated: N/A Staus: N/A Case/Auth ID: N/A Outcome: N/A Ordering Provider: Chilo Small MD Provider Specialty Pharmacy: N/A AMB orders pended: N/A CAM orders pended: N/A Patient Notification / Instruction: N/A documented in this encounter Plan of Treatment DateTypeDepartmentCare Team (Latest Contact Info)Wigeuwlvuzs55/07/2025 4:00 PM ESTOffice Visit Otolaryngology [address] [place] [address] Sherice Castrejon MD [address] [place] [address] follow updocumented as of this encounter Visit Diagnoses Diagnosis Chronic obstructive pulmonary disease, unspecified COPD type (HCC)- Primary documented in this encounter Care Teams Team MemberRelationshipSpecialtyStart DateEnd Date Facundo Nina MD [address] [place] [address] PCP - GeneralPulmonary and Critical Care Medicine06/03/24documented as of this encounter
--- OUTSIDE RECORDS SUMMARY | 2025-08-25 16:56 | XMS_ITS | Encounter Summary ---
Author Organization [facility] Address [address] [place] [address] Care Team Providers Care Lining Cementer Name Role Phone Facundo Nina MD Primary Care Provider [phone] Source Comments In the event this information is protected by the Federal Confidentiality of Alcohol and Drug AbusePatient Records regulations: The Federal rules restrict any use of the information to criminally investigate or prosecute any alcohol or drug abuse patient.[facility] Reason for Visit * ReasonCommentsMedication Authorizationyupelei 175mcg/3m solution Encounter Details DateTypeDepartmentCare Team (Latest Contact Info)Srzxupudrdg32/31/2025Telephone Pulmonary Medicine [address] [address] Chilo Small MD [address] [place] [address] Medication Authorization (yupelei 175mcg/3m solution) Social History Tobacco UseTypesPacks/DayYears UsedDateSmoking Tobacco: NeverPassive [...] place to sleep or slept in a chcf (including now)?No06/04/2024Housing Stability Vital SignAnswerDate RecordedIn the last 12 months, was there a time when you were not able to pay the mortgage or rent on time?No05/20/2025In the past 12 months, how many times have you moved where you were living?t any time in the past 12 months, were you homeless or living in a chcf (including now)?No05/20/2025 Hunger Vital SignAnswerDate RecordedWithin the [...] were you homeless or living in a chcf (including now)?No06/29/2025HC UtilitiesAnswerDate Recorded In the past 12 months has the [employer], oil, or water company threatened to shut off services in your home?No06/29/2025rea Deprivation IndexAnswerDate RecordedNational Score (1-100), lower number is lower dolq841607/27/2025State Score (1-10), lower number is lower jckl345Data from: https://www.neighborhoodatlas.medicine.[facility]/. Last address used for [address]/27/[address]25CommentsUnknownSex and Gender InformationValueDate RecordedSex Assigned at BirthNot on fileLegal SexFemale 09/03/2022 2:34 PM ESTGender IdentityNot on fileSexual OrientationNot on file documented as of this encounter Functional Status * Are you deaf or do you have serious difficulty hearing?AnswerDate of OtvgqvolkdGbavvlKm89/30/2025 12:58 PM Rosario Mccullough RN * Are you blind or do you have serious difficulty seeing, even when wearing glasses?AnswerDate of NfpnmsshreZaqowsPb36/30/2025 12:58 PM Rosario Mccullough RN * Do you have serious difficulty walking or climbing stairs?AnswerDate of NsifusdkpdIdrpuiVb57/30/2025 12:58 PM Rosario Mccullough RN * Do you have difficulty dressing or bathing?AnswerDate of AssessmentAuthorNo 02/16/2025 12:58 PM Rosario Mccullough RN * Because of a physical, mental, or emotional condition, do you have difficulty doing errands alone such as visiting a doctor's office or shopping?AnswerDate of DwwhrxhmjsWpimlyAs05/30/2025 12:58 PM Rosario Mccullough RN documented as of this encounter Mental Status * Because of a physical, mental, or emotional condition, do you have serious difficulty concentrating, remembering, or making decisions?AnswerEntry Date DbceykUl84/30/2025 12:58 PM Rosario Mccullough RN documented in this encounter Miscellaneous Notes * Telephone Encounter - Tanesha Pillai LISW - 08/19/2025 3:58 PM EDT Medication: Yupelri Date Submitted: August 19, 2025 Prescribing Provider: Geovanny Method of Submission: CMM Outcome: TBD--pending MD response to trial of Anoro Ellipta Yani Cano ([place]: [id number]) - [id number] Outcome Date: TBD FELI Olmstead PA cancelled due to pt needing to trial Anoro Ellipta per insurance. Dr[facility] Small [facility] Notified pt of plan and to update with outcome after starting this med. * Telephone Encounter - Emilie Rivas - 08/19/2025 11:03 AM EDTSummary: javier 175mcg/3m solution Images from the original note were not included. Imported fax from [employer] [facility] (dated 11.17.2024). Please allow time delay for documents to appear in [employer] (Scanned Documents Tab). documented in this encounter Plan of Treatment DateTypeDepartmentCare Team (Latest Contact Info)Cgpkbionwej60/07/2025 4:00 PM ESTOffice Visit Otolaryngology [address] [place] [address] Sherice Castrejon MD [address] [place] [address] follow updocumented as of this encounter Visit Diagnoses Not on filedocumented in this encounter Care Teams Team MemberRelationshipSpecialtyStart DateEnd Date Facundo Nina MD [address] [place] [address] PCP - GeneralPulmonary and Critical Care Medicine06/03/24documented as of this encounter
--- OUTSIDE RECORDS SUMMARY | 2025-08-25 16:56 | XMS_ITS | Clinical Summary ---
Author Organization [facility] Address [address] [place] [id number] Care Team Providers Care Bid Writer Name Role Phone Facundo Nina MD Primary Care Provider [phone] Allergies Active AllergyReactionsCriticalityNoted EocnNrhnegzoLczpvggjfWhyd82/25/2024 swelling Sulfamethoxazole-AnivwvhwvwopDyquLyu66/12/2020 Medications MedicationSigDispense QuantityRefillsLast FilledStart DateEnd DateStatus acetaminophen (TYLENOL) 500 mg tablet Take 2 tablets by mouth every 8 hours as needed for fever or pain. 90 tablet 12:51 PM EST5Active ftbobrqvevd-gmezzscszu-bplipjkjotxtt (ALYFTREK) 10-50-125 mg tablet Take 2 tablets by mouth once daily. 56 tablet 5Active budesonide (PULMICORT) 1 mg/2 mL nebulizer solution Indications:Cystic fibrosis with pulmonary manifestations (HCC)INHALE CONTENTS OF 1 VIAL IN NEBULIZER ONCE DAILY 60 mL 5Active Nebulizer Accessories [facility] [place] Indications:Cystic fibrosis with pulmonary manifestations (HCC)Please dispense tubing for nebulizer 2 Each 5Active pseudoephedrine (SUDAFED) 30 mg tablet Take 1 tablet by mouth every 6 hours as needed. 30 tablet 5Active cscctq-twljjbox-bccbzju (CREON 24) 24,000-76,000 -120,000 unit delayed release capsule Indications:Pancreatic insufficiency due to cystic fibrosis (HCC)Take 3 capsules with meals and 1 capsule with snacks. Total 12 capsules per day 360 capsule 5Active sodium chloride 3% solution 3 % nebulizer solution Indications:Cystic fibrosis (HCC),Cystic fibrosis with pulmonary manifestations (HCC),Chronic sinusitis, unspecified location,Cystic fibrosis with pulmonary exacerbation (HCC),ABPA (allergic bronchopulmonary aspergillosis) (HCC),MSSA (methicillin susceptible Staphylococcus aureus)Use 4 mL via nebulizer two times a day. 240 mL 5Active water for injection, sterile syrg Indications:Cystic fibrosis with pulmonary manifestations (HCC),MSSA (methicillin susceptible Staphylococcus aureus)4 mL two times a day. Pull up 4 ml and mix with one vial of vancomycin for nebulization 224 mL 5Active Syringe with Needle, Disp, 5 mL 20 x 1 syrg Use as directed with inhaled vancomycin 56 each 5Active albuterol (PROVENTIL) 2.5 mg /3 mL (0.083 %) nebulizer solution Indications:Cystic fibrosis (HCC),Cystic fibrosis with pulmonary manifestations (HCC),Chronic sinusitis, unspecified location,Cystic fibrosis with pulmonary exacerbation (HCC),ABPA (allergic bronchopulmonary aspergillosis) (HCC),MSSA (methicillin susceptible Staphylococcus aureus)Use 3 mL via nebulizer three times a day as needed for wheezing/shortness of breath. Inhale over 5-15 minutes 270 mL 5Active dornase augie (PULMOZYME) 1 mg/mL nebulizer solution Indications:Cystic fibrosis (HCC),Cystic fibrosis with pulmonary manifestations (HCC),Chronic sinusitis, unspecified location,Cystic fibrosis with pulmonary exacerbation (HCC),ABPA (allergic bronchopulmonary aspergillosis) (HCC),MSSA (methicillin susceptible Staphylococcus aureus)Inhale 2.5 mL as instructed once daily. 75 mL 5Active fluticasone (FLONASE) 50 mcg/actuation nasal spray Indications:Cystic fibrosis (HCC),Cystic fibrosis with pulmonary manifestations (HCC),Chronic sinusitis, unspecified location,Cystic fibrosis with pulmonary exacerbation (HCC),ABPA (allergic bronchopulmonary aspergillosis) (HCC),MSSA (methicillin susceptible Staphylococcus aureus)USE 1 SPRAY IN EACH NOSTRIL ONCE A DAY 16 mL 5Active omeprazole (PRILOSEC) 20 mg capsule Indications:Cystic fibrosis (HCC),Cystic fibrosis with pulmonary manifestations (HCC),Chronic sinusitis, unspecified location,Cystic fibrosis with pulmonary exacerbation (HCC),ABPA (allergic bronchopulmonary aspergillosis) (HCC),MSSA (methicillin susceptible Staphylococcus aureus)TAKE 1 CAPSULE BY MOUTH EVERY MORNING 30 capsule 5Active loratadine (CLARITIN) 10 mg tablet Indications:Cystic fibrosis (HCC),Cystic fibrosis with pulmonary manifestations (HCC),Chronic sinusitis, unspecified location,Cystic fibrosis with pulmonary exacerbation (HCC),ABPA (allergic bronchopulmonary aspergillosis) (HCC),MSSA (methicillin susceptible Staphylococcus aureus)TAKE 1 TABLET BY MOUTH EVERY DAY 30 tablet 5Active sodium chloride (SALINE NASAL) 0.65 % nasal spray Indications:Cystic fibrosis (HCC),Cystic fibrosis with pulmonary manifestations (HCC),Chronic sinusitis, unspecified location,Cystic fibrosis with pulmonary exacerbation (HCC),ABPA (allergic bronchopulmonary aspergillosis) (HCC),MSSA (methicillin susceptible Staphylococcus aureus)USE 2 SPRAYS IN THE NOSE NEEDED 44 mL 5Active Cholecalciferol, Vitamin D3, 125 mcg (5,000 unit) cap Indications:Cystic fibrosis (HCC),Cystic fibrosis with pulmonary manifestations (HCC),Chronic sinusitis, unspecified location,Cystic fibrosis with pulmonary exacerbation (HCC),ABPA (allergic bronchopulmonary aspergillosis) (HCC),MSSA (methicillin susceptible Staphylococcus aureus)TAKE 1 CAPSULE BY MOUTH EVERY DAY 30 capsule 5Active ferrous sulfate 325 mg (65 mg iron) tablet Indications:Cystic fibrosis (HCC),Cystic fibrosis with pulmonary manifestations (HCC),Chronic sinusitis, unspecified location,Cystic fibrosis with pulmonary exacerbation (HCC),ABPA (allergic bronchopulmonary aspergillosis) (HCC),MSSA (methicillin susceptible Staphylococcus aureus)TAKE 1 TABLET BY MOUTH EVERY OTHER DAY 15 tablet 5Active albuterol HFA (PROVENTIL HFA, VENTOLIN HFA) 90 mcg/actuation inhaler Indications:Cystic fibrosis (HCC),Cystic fibrosis with pulmonary manifestations (HCC),Chronic sinusitis, unspecified location,Cystic fibrosis with pulmonary exacerbation (HCC),ABPA (allergic bronchopulmonary aspergillosis) (HCC),MSSA (methicillin susceptible Staphylococcus aureus)INHALE 2 PUFFS BY MOUTH DAILY NEEDED 18 each 5Active azithromycin (ZITHROMAX) 500 mg tablet Indications:Cystic fibrosis (HCC),Cystic fibrosis with pulmonary manifestations (HCC),Chronic sinusitis, unspecified location,Cystic fibrosis with pulmonary exacerbation (HCC),ABPA (allergic bronchopulmonary aspergillosis) (HCC),MSSA (methicillin susceptible Staphylococcus aureus)TAKE 1 TABLET BY MOUTH EVERY FRIDAY, FRIDAY, AND FRIDAY 12 tablet 1105Active lactobacillus rhamnosus (CULTURELLE) 10 billion cell capsule Indications:Cystic fibrosis (HCC),ABPA (allergic bronchopulmonary aspergillosis) (HCC)Take 1 capsule by mouth once daily. 30 capsule 5Active colistimethate (COLY-MYCIN M) 150 mg injection Indications:Cystic fibrosis (HCC)Inhale 2cc (150mg) twice daily every other month 60 each 5Active Syringe with Needle, Safety (3CC SAFETY SYRINGE 10QD0-3/2 ) 3 mL 22 gauge x 1 1/2 Indications:Cystic fibrosis with pulmonary manifestations (HCC),Cystic fibrosis (HCC),Chronic sinusitis, unspecified location,Cystic fibrosis with pulmonary exacerbation (HCC),ABPA (allergic bronchopulmonary aspergillosis) (HCC),MSSA (methicillin susceptible Staphylococcus aureus)1 each two times a day. To pull up sterile water to inject into colistin vial 60 each 5Active sterile water (STERILE WATER FOR INJECTION) injection Indications:Cystic fibrosis with pulmonary manifestations (HCC),Cystic fibrosis (HCC),Chronic sinusitis, unspecified location,Cystic fibrosis with pulmonary exacerbation (HCC),ABPA (allergic bronchopulmonary aspergillosis) (HCC),MSSA (methicillin susceptible Staphylococcus aureus)2 mL two times a day. 2 mls sterile water to be mixed with 1 vial (150 mg) colistimethate for nebulization 120 mL 5Active sterile water (STERILE WATER FOR INJECTION) injection Indications:Cystic fibrosis with pulmonary manifestations (HCC),Cystic fibrosis (HCC),Chronic sinusitis, unspecified location,Cystic fibrosis with pulmonary exacerbation (HCC),ABPA (allergic bronchopulmonary aspergillosis) (HCC),MSSA (methicillin susceptible Staphylococcus aureus)4 mL two times a day. Mix 4 mls in 1 vial of ceftaz . Pull up 2 mls (500mg ceftaz) and nebulize twice daily 240 mL tive Syringe with Needle, Safety (ECLIPSE SYRINGE) 3 mL 21 gauge x 1 syrg Indications:Cystic fibrosis with pulmonary manifestations (HCC),Cystic fibrosis (HCC),Chronic sinusitis, unspecified location,Cystic fibrosis with pulmonary exacerbation (HCC),ABPA (allergic bronchopulmonary aspergillosis) (HCC),MSSA (methicillin susceptible Staphylococcus aureus)1 Units two times a day. Pull up 4 mls sterile water and put into ceftaz vial and mix then pull up 2 mls and nebulize 60 each tive cefTAZidime (FORTAZ) 1 gram solr Indications:Cystic fibrosis with pulmonary manifestations (HCC),Cystic fibrosis (HCC),Chronic sinusitis, unspecified location,Cystic fibrosis with pulmonary exacerbation (HCC),ABPA (allergic bronchopulmonary aspergillosis) (HCC),MSSA (methicillin susceptible Staphylococcus aureus)Inhale 500 mg as instructed q 12 HR. 28 g tive levoFLOXacin (LEVAQUIN) 750 mg tablet Indications:Cystic fibrosis with pulmonary manifestations (HCC)Take 1 tablet by mouth once daily. 21 tablet 08/01/2025tive arformoterol (BROVANA) 15 mcg/2 mL nebulizer solution Indications:Cystic fibrosis (HCC)Inhale 2 mL as instructed every 12 hours. 120 mL 6Active revefenacin (YUPELRI) 175 mcg/3 mL solution for nebulization Indications:Cystic fibrosis (HCC)Inhale 3 mL as instructed once daily. [address] (NOXAFIL) 100 mg tablet Indications:Cystic fibrosis (HCC)Take 3 tablets by mouth once daily. 90 tablet tive dupilumab 200 mg/1.14 mL subcutaneous syringe (DUPIXENT) Indications:Cystic fibrosis (HCC),Mucopurulent chronic bronchitis (HCC)Inject 1.14 mL subcutaneously every 2 weeks. 1.14 mL tive blood sugar diagnostic test strip Test One time a day. Insulin Dep? No E84.8 100 strip tive Lancets Test One time a day. Insulin Dep? No E84.8 100 each 5Active umeclidinium-vilanterol (ANORO ELLIPTA) 62.5-25 mcg/actuation inhaler Indications:Cystic fibrosis (HCC),Mucopurulent chronic bronchitis (HCC)Inhale 1 inhalation as instructed once daily. 1 each tive cefTAZidime (FORTAZ) 1 gram solr Indications:Cystic fibrosis (HCC),Cystic fibrosis with pulmonary manifestations (HCC),Chronic sinusitis, unspecified location,Cystic fibrosis with pulmonary exacerbation (HCC),ABPA (allergic bronchopulmonary aspergillosis) (HCC),MSSA (methicillin susceptible Staphylococcus aureus)Inhale 500 mg as instructed q 12 HR. 28 g Discontinued fluticasone propion-salmeterol 232-14 mcg/actuation Indications:Cystic fibrosis (HCC),Cystic fibrosis with pulmonary manifestations (HCC),Chronic sinusitis, unspecified location,Cystic fibrosis with pulmonary exacerbation (HCC),ABPA (allergic bronchopulmonary aspergillosis) (HCC),MSSA (methicillin susceptible Staphylococcus aureus)Inhale 1 Inhalation as instructed two times a day. 1 Each Discontinued colistimethate (COLY-MYCIN M) 150 mg injection Indications:Cystic fibrosis (HCC)Inhale 2cc (150mg) twice daily every other month 60 each Discontinued Syringe with Needle, Safety (ECLIPSE SYRINGE) 3 mL 21 gauge x 1 syrg Indications:Cystic fibrosis (HCC),Cystic fibrosis with pulmonary manifestations (HCC),Chronic sinusitis, unspecified location,Cystic fibrosis with pulmonary exacerbation (HCC),ABPA (allergic bronchopulmonary aspergillosis) (HCC),MSSA (methicillin susceptible Staphylococcus aureus)1 Units two times a day. Pull up 4 mls sterile water and put into ceftaz vial and mix then pull up 2 mls and nebulize 60 each Discontinued Syringe with Needle, Safety (3CC SAFETY SYRINGE 12ON9-9/2 ) 3 mL 22 gauge x 1 1/2 Indications:Cystic fibrosis (HCC),Cystic fibrosis with pulmonary manifestations (HCC),Chronic sinusitis, unspecified location,Cystic fibrosis with pulmonary exacerbation (HCC),ABPA (allergic bronchopulmonary aspergillosis) (HCC),MSSA (methicillin susceptible Staphylococcus aureus)1 each two times a day. To pull up sterile water to inject into colistin vial 60 each Discontinued sterile water (STERILE WATER FOR INJECTION) injection Indications:Cystic fibrosis (HCC),Cystic fibrosis with pulmonary manifestations (HCC),Chronic sinusitis, unspecified location,Cystic fibrosis with pulmonary exacerbation (HCC),ABPA (allergic bronchopulmonary aspergillosis) (HCC),MSSA (methicillin susceptible Staphylococcus aureus)4 mL two times a day. Mix 4 mls in 1 vial of ceftaz . Pull up 2 mls (500mg ceftaz) and nebulize twice daily 240 mL Discontinued sterile water (STERILE WATER FOR INJECTION) injection Indications:Cystic fibrosis (HCC),Cystic fibrosis with pulmonary manifestations (HCC),Chronic sinusitis, unspecified location,Cystic fibrosis with pulmonary exacerbation (HCC),ABPA (allergic bronchopulmonary aspergillosis) (HCC),MSSA (methicillin susceptible Staphylococcus aureus)2 mL two times a day. 2 mls sterile water to be mixed with 1 vial (150 mg) colistimethate for nebulization 120 mL Discontinued minocycline (MINOCIN, DYNACIN) 100 mg capsule Indications:Cystic fibrosis with pulmonary manifestations (HCC),Cystic fibrosis (HCC)Take 1 capsule by mouth two times a day for 21 days. 42 capsule Discontinued(Side Effects) Blood-Glucose Meter Test One time a day. Insulin Dep? No E84.8 1 each ExpiredHospital, Clinic, or Other Facility Administered MedicationOrdered DoseRouteFrequencyStart DateEnd DateStatus sodium chloride 0.9 % (flush) 2-10 mL (BD POSIFLUSH) Indications:Cystic fibrosis (HCC)2 - 10 mLIVAS [id number] heparin 10 unit/mL 20-60 Units syringe (PORCINE) Indications:Cystic fibrosis (HCC)20 - 60 UnitsIVAS [id number] Active alteplase 2 mg catheter clearance solution (CATHFLO) Indications:Cystic fibrosis (HCC)2 mgINTRALUMINAL2 TIMES DAILY NEEDED /5Active sodium chloride 0.9 % (flush) 2-10 mL (BD POSIFLUSH) Indications:Cystic fibrosis (HCC)2 - 10 mLIVAS EFNFVJ24/07//ctive lidocaine 4 % 1 application topical cream (LMX) Indications:Cystic fibrosis (HCC)1 applicationTOPAS OJFGPI32/07/ Active heparin 10 unit/mL 20-60 Units syringe (PORCINE) Indications:Cystic fibrosis (HCC)20 - 60 UnitsIVAS YNSJJI35/07/ Active heparin 100 unit/mL 200 Units injection Indications:Cystic fibrosis (HCC)200 UnitsIVAS VCVZPG95/07/ctive alteplase 2 mg catheter clearance solution (CATHFLO) Indications:Cystic fibrosis (HCC)2 mgINTRALUMINAL2 TIMES DAILY NEEDED ctive Active Problems ProblemNoted DateDiagnosed DateCOPD (chronic obstructive pulmonary disease) 08/19/20256211Efsrtkcrmvr23/29/2025GERD (gastroesophageal reflux disease)06/29/2025 Assessment & Plan (07/12/2025 4:03 PM EDT): Plan: -C/w home Enzymes -continue PPI Assessment & Plan (07/11/2025 3:32 PM EDT): Plan: -C/w home Enzymes -continue PPI Assessment & Plan (07/10/2025 1:47 PM EDT): Plan: -C/w home Enzymes -continue PPI Assessment & Plan (07/09/2025 1:06 PM EDT): Plan: -C/w home Enzymes -continue PPI Assessment & Plan (07/08/2025 12:10 PM EDT): Plan: -C/w home Enzymes -continue PPI Assessment & Plan (07/07/2025 2:11 PM EDT): Plan: -C/w home Enzymes -continue PPI Assessment & Plan (07/06/2025 1:41 PM EDT): Plan: -C/w home Enzymes -continue PPI Dispo:D/C home when pt is medically stable Assessment & Plan (07/05/2025 12:18 PM EDT): -C/w home Enzymes -continue PPI Dispo:D/C home when pt is medically stable Assessment & Plan (07/04/2025 12:44 PM EDT): -C/w home Enzymes -continue PPI Dispo:D/C home when pt is medically stable Assessment & Plan (07/05/2025 6:52 AM EDT): -C/w home Enzymes -continue PPI Dispo:D/C home when pt is medically stable Assessment & Plan (07/03/2025 11:27 AM EDT): -C/w home Enzymes -continue PPI Dispo:D/C home when pt is medically stable Assessment & Plan (07/02/2025 1:53 PM EDT): -C/w home Enzymes -continue PPI Dispo:D/C home when pt is medically stable Assessment & Plan (07/01/2025 3:14 PM EDT): -C/w home Enzymes -continue PPI Dispo:D/C home when pt is medically stable Assessment & Plan (06/30/2025 3:53 PM EDT): -C/w home Enzymes -continue PPI Dispo:D/C home when pt is medically stable Assessment & Plan (06/30/2025 11:01 AM EDT): -C/w home Enzymes -continue PPI Assessment & Plan (06/29/2025 4:49 PM EDT): -C/w home Enzymes -continue PPI CF (cystic fibrosis)06/28/2025 Assessment & Plan (07/12/2025 4:03 PM EDT): Recs per CF team: -Continue IV colistin 65 mg every 8 hours Day 9 -Continue IV Meropenem 2g IV q8 hours Day 9 -Continue IV minocycline 200 mg every 12 hours Day 9 -Inhaled colistin 150 mg BID -C/W Cvtsqsynvu-fcrmbivsp-wmrhturrzihcd - Spirometry 07/12/25 pending -Appreciate CF team recs ok for DC 07/13/25 -Plan for DC tomorrow afternoon -C/W Clertaxcai-jearzfjxo-edcaogckddlrl -06/28 sputum CF culture shows many Staph aureus and few Stenotrophomonas -C/w CF BPH, VEST ,Pulmozyme, 3%saline INH -C/w home Asthma Bronchodilator therapy and Budesonide 1mg BID -PRN Nasal [place] -close monitoring Assessment & Plan (07/11/2025 3:32 PM EDT): Recs per CF team: -Spirometry completed 07/06/2025 FEV1 54% -baseline 57% -Continue IV colistin 65 mg every 8 hours Day 10 -Continue IV Meropenem 2g IV q8 hours Day 10 -Continue IV minocycline 200 mg every 12 hours Day 10 -Inhaled colistin 150 mg BID -C/W Ozehrzvmuj-esvomxhoh-lhebnzsfnbrvf -06/28 sputum CF culture shows many Staph aureus and few Stenotrophomonas -C/w CF BPH, VEST ,Pulmozyme, 3%saline INH -C/w home Asthma Bronchodilator therapy and Budesonide 1mg BID -PRN Nasal [place] -close monitoring Assessment & Plan (07/10/2025 1:47 PM EDT): Plan: -C/w home Enzymes -continue PPI Assessment & Plan (07/09/2025 1:06 PM EDT): Recs per CF team: -Spirometry completed 07/06/2025 FEV1 54% -baseline 57% -Continue IV colistin 65 mg every 8 hours Day 10 -Continue IV Meropenem 2g IV q8 hours Day 10 -Continue IV minocycline 200 mg every 12 hours Day 10 -Inhaled colistin 150 mg BID -C/W Akizajkanh-oztyqatoa-xbojzbdtvkatm -06/28 sputum CF culture shows many Staph aureus and few Stenotrophomonas -C/w CF BPH, VEST ,Pulmozyme, 3%saline INH -C/w home Asthma Bronchodilator therapy and Budesonide 1mg BID -PRN Nasal [place] -close monitoring Assessment & Plan (07/08/2025 12:10 PM EDT): Recs per CF team: -Spirometry completed 07/06/2025 FEV1 54% -baseline 57% -Continue IV colistin 65 mg every 8 hours Day 10 -Continue IV Meropenem 2g IV q8 hours Day 10 -Continue IV minocycline 200 mg every 12 hours Day 10 -Inhaled colistin 150 mg BID -C/W Xtvnoevwth-zjrssffed-ugtyidyzmjsrd -06/28 sputum CF culture shows many Staph aureus and few Stenotrophomonas -C/w CF BPH, VEST ,Pulmozyme, 3%saline INH -C/w home Asthma Bronchodilator therapy and Budesonide 1mg BID -PRN Nasal [place] -close monitoring Assessment & Plan (07/07/2025 2:11 PM EDT): Recs per CF team: -Spirometry completed 07/06/2025 FEV1 54% -baseline 57% -Continue IV colistin 65 mg every 8 hours Day 10 -Continue IV Meropenem 2g IV q8 hours Day 10 -Continue IV minocycline 200 mg every 12 hours Day 10 -Inhaled colistin 150 mg BID -C/W Gnolmsqcus-hklsiafki-azkukbiadvdfs -06/28 sputum CF culture shows many Staph aureus and few Stenotrophomonas -C/w CF BPH, VEST ,Pulmozyme, 3%saline INH -C/w home Asthma Bronchodilator therapy and Budesonide 1mg BID -PRN Nasal [place] -close monitoring Assessment & Plan (07/06/2025 1:41 PM EDT): Recs per CF team: -Continue IV colistin 65 mg every 8 hours Day 9 -Continue IV Meropenem 2g IV q8 hours Day 9 -Continue IV minocycline 200 mg every 12 hours Day 9 -Inhaled colistin 150 mg BID -C/W Ilrcwqrzwf-klbolskbq-ydwuzopwmmywm - spirometry without bronchodilator-timing today -06/28 sputum CF culture shows many Staph aureus and few Stenotrophomonas -C/w CF BPH, VEST ,Pulmozyme, 3%saline INH -C/w home Asthma Bronchodilator therapy and Budesonide 1mg BID -PRN Nasal [place] -close monitoring Assessment & Plan (07/05/2025 12:18 PM EDT): Recs per CF team: -Continue IV colistin 65 mg every 8 hours Day 3 -Continue IV Meropenem 2g IV q8 hours Day 3 -Continue IV minocycline 200 mg every 12 hours Day 3 -Inhaled colistin 150 mg BID -C/W Krqhpxmyqj-uqutbmqyw-ejtnisszqmelr - spirometry without bronchodilator-timing likely next week -06/28 sputum CF culture shows many Staph aureus and few Stenotrophomonas -Continue IV fjluid 0.45 NS at 60cc/hr Day 3-will eval in am if needs to be continued additional 3 days for airway clearance. -C/w CF BPH, VEST ,Pulmozyme, 3%saline INH -C/w home Asthma Bronchodilator therapy and Budesonide 1mg BID -Cw ENT Pred taper 10 mg QOD -PRN Nasal [place] -close monitoring Assessment & Plan (07/04/2025 12:44 PM EDT): Recs per CF team: S/P Continue IV colistin 65 mg every 8 hours ,Continue IV Meropenem 2g IV q8 hours Continue IV minocycline 200 mg every 12 hours x days -Inhaled colistin 150 mg BID x days -C/W Flpbcktfsl-cpxlxwtyg-jxwhrrhzcmthm - spirometry at DC: -06/28 sputum CF culture shows many Staph aureus and few Stenotrophomonas . -C/w CF BPH, VEST ,Pulmozyme, 3%saline INH -C/w home Asthma Bronchodilator therapy and Budesonide 1mg BID -PRN Nasal [place] -F/U with CF Clinic Assessment & Plan (07/05/2025 6:52 AM EDT): Recs per CF team: -Continue IV colistin 65 mg every 8 hours Day 3 -Continue IV Meropenem 2g IV q8 hours Day 3 -Continue IV minocycline 200 mg every 12 hours Day 3 -Inhaled colistin 150 mg BID -C/W Biiaaropjq-devcwdbdg-xorpcnemzpzty - spirometry without bronchodilator-timing likely next week -06/28 sputum CF culture shows many Staph aureus and few Stenotrophomonas -Continue IV fjluid 0.45 NS at 60cc/hr Day 3-will eval in am if needs to be continued additional 3 days for airway clearance. -C/w CF BPH, VEST ,Pulmozyme, 3%saline INH -C/w home Asthma Bronchodilator therapy and Budesonide 1mg BID -Cw ENT Pred taper 10 mg QOD -PRN Nasal [place] -close monitoring Assessment & Plan (07/03/2025 11:27 AM EDT): Recs per CF team: -Continue IV colistin 65 mg every 8 hours Day 3 -Continue IV Meropenem 2g IV q8 hours Day 3 -Continue IV minocycline 200 mg every 12 hours Day 3 -Inhaled colistin 150 mg BID -C/W Ohbmscgxww-qplacswna-rmtnwexhdicrb - spirometry without bronchodilator-timing likely next week -06/28 sputum CF culture shows many Staph aureus and few Stenotrophomonas -Continue IV fjluid 0.45 NS at 60cc/hr Day 3-will eval in am if needs to be continued additional 3 days for airway clearance. -C/w CF BPH, VEST ,Pulmozyme, 3%saline INH -C/w home Asthma Bronchodilator therapy and Budesonide 1mg BID -Cw ENT Pred taper 10 mg QOD -PRN Nasal [place] -close monitoring Assessment & Plan (07/02/2025 1:53 PM EDT): Recs per CF team: -Continue IV colistin 65 mg every 8 hours Day 3 -Continue IV Meropenem 2g IV q8 hours Day 3 -Continue IV minocycline 200 mg every 12 hours Day 3 -Inhaled colistin 150 mg BID -C/W Hfzyjbaejh-lbxgmjajc-mtgfhtbfgachs - spirometry without bronchodilator-timing likely next week -06/28 sputum CF culture shows many Staph aureus and few Stenotrophomonas -Continue IV fjluid 0.45 NS at 60cc/hr Day 3-will eval in am if needs to be continued additional 3 days for airway clearance. -C/w CF BPH, VEST ,Pulmozyme, 3%saline INH -C/w home Asthma Bronchodilator therapy and Budesonide 1mg BID -Cw ENT Pred taper 10 mg QOD -PRN Nasal [place] -close monitoring Assessment & Plan (07/01/2025 3:14 PM EDT): Recs per CF team: -Continue IV colistin 65 mg every 8 hours Day 3 -Continue IV Meropenem 2g IV q8 hours Day 3 -Continue IV minocycline 200 mg every 12 hours Day 3 -Inhaled colistin 150 mg BID -C/W Egpmqlrgpo-pejhzyavz-eyrvlrjxtmdos - spirometry without bronchodilator-timing likely next week -06/28 sputum CF culture shows many Staph aureus and few Stenotrophomonas -Continue IV fjluid 0.45 NS at 60cc/hr Day 3-will eval in am if needs to be continued additional 3 days for airway clearance. -C/w CF BPH, VEST ,Pulmozyme, 3%saline INH -C/w home Asthma Bronchodilator therapy and Budesonide 1mg BID -Cw ENT Pred taper 10 mg QOD -PRN Nasal [place] -close monitoring Assessment & Plan (06/30/2025 3:53 PM EDT): Res per CF team: -Continue IV colistin 65 mg every 8 hours Day 2 -Continue IV Meropenem 2g IV q8 hours Day 2 -Continue IV minocycline 200 mg every 12 hours Day 2 -Inhaled colistin 150 mg BID -C/W Cfsxsyjqka-yyixwoyjz-vwrzhayjmilal - spirometry without bronchodilator-timing likely next week -06/28 sputum CF culture shows many Staph aureus and few Stenotrophomonas -Continue IV fjluid 0.45 NS at 60cc/hr Day 2 -C/w CF BPH, VEST ,Pulmozyme, 3%saline INH -C/w home Asthma Bronchodilator therapy and Budesonide 1mg BID -Cw ENT Pred taper 10 mg QOD -PRN Nasal [place] -close monitoring Assessment & Plan (06/30/2025 11:01 AM EDT): Res per CF team: -Continue IV colistin 65 mg every 8 hours -Continue IV Meropenem 2g IV q8 hours -Continue IV minocycline 200 mg every 12 hours -Inhaled colistin 150 mg BID -C/W Wgmsayyrki-rcvnrixlp-oukhdrhgftxsr - spirometry without bronchodilator-timing likely next week -send Sputum for bacteria, fungus, and AFB (please label as cystic fibrosis in the comments section; Lab does special processing for CF sputum) -C/w CF BPH, VEST ,Pulmozyme, 3%saline INH -C/w home Asthma Bronchodilator therapy -increase Budesonide 1mg BID -Cw ENT Pred taper 10 mg QOD -PRN Nasal [place] -close monitoring Assessment & Plan (06/29/2025 4:49 PM EDT): Res per CF team: -Continue IV colistin 65 mg every 8 hours -Continue IV Meropenem 2g IV q8 hours -Continue IV minocycline 200 mg every 12 hours -Inhaled colistin 150 mg BID -C/W Ssymwrartc-srkjellxk-hbcyyuumyccmm - spirometry without bronchodilator-timing likely next week -send Sputum for bacteria, fungus, and AFB (please label as cystic fibrosis in the comments section; Lab does special processing for CF sputum) -C/w CF BPH, VEST ,Pulmozyme, 3%saline INH -C/w home Asthma Bronchodilator therapy -increase Budesonide 1mg BID -Cw ENT Pred taper 10 mg QOD -PRN Nasal [place] -close monitoring Gpdvlgawrs14/11/2025Pseudomonas aeruginosa ohxumadrn85/16/2025Chronic sinusitis 10/05/2024 Assessment & Plan (07/12/2025 4:03 PM EDT): Recs per CF team: -Continue IV colistin 65 mg every 8 hours Day 9 -Continue IV Meropenem 2g IV q8 hours Day 9 -Continue IV minocycline 200 mg every 12 hours Day 9 -Inhaled colistin 150 mg BID -C/W Jddrnutuey-yvdmjnvsy-worqwxwgcerfx - Spirometry 07/12/25 pending -Appreciate CF team recs ok for DC 07/13/25 -Plan for DC tomorrow afternoon -C/W Hnygqprpzm-wikslmhnx-fmwyhqlpqnkcs -06/28 sputum CF culture shows many Staph aureus and few Stenotrophomonas -C/w CF BPH, VEST ,Pulmozyme, 3%saline INH -C/w home Asthma Bronchodilator therapy and Budesonide 1mg BID -PRN Nasal [place] -close monitoring Assessment & Plan (07/11/2025 3:32 PM EDT): Recs per CF team: -Spirometry completed 07/06/2025 FEV1 54% -baseline 57% -Continue IV colistin 65 mg every 8 hours Day 10 -Continue IV Meropenem 2g IV q8 hours Day 10 -Continue IV minocycline 200 mg every 12 hours Day 10 -Inhaled colistin 150 mg BID -C/W Rfgyajvxpb-ztcbrqmvj-zmbzqofurtqsi -06/28 sputum CF culture shows many Staph aureus and few Stenotrophomonas -C/w CF BPH, VEST ,Pulmozyme, 3%saline INH -C/w home Asthma Bronchodilator therapy and Budesonide 1mg BID -PRN Nasal [place] -close monitoring Assessment & Plan (07/09/2025 1:06 PM EDT): Recs per CF team: -Spirometry completed 07/06/2025 FEV1 54% -baseline 57% -Continue IV colistin 65 mg every 8 hours Day 10 -Continue IV Meropenem 2g IV q8 hours Day 10 -Continue IV minocycline 200 mg every 12 hours Day 10 -Inhaled colistin 150 mg BID -C/W Pouylhgxsi-diydpjlwg-jimrvqohtzeey -06/28 sputum CF culture shows many Staph aureus and few Stenotrophomonas -C/w CF BPH, VEST ,Pulmozyme, 3%saline INH -C/w home Asthma Bronchodilator therapy and Budesonide 1mg BID -PRN Nasal [place] -close monitoring Assessment & Plan (07/08/2025 12:10 PM EDT): Recs per CF team: -Spirometry completed 07/06/2025 FEV1 54% -baseline 57% -Continue IV colistin 65 mg every 8 hours Day 10 -Continue IV Meropenem 2g IV q8 hours Day 10 -Continue IV minocycline 200 mg every 12 hours Day 10 -Inhaled colistin 150 mg BID -C/W Bjrfbpormk-vzmlinsfp-czbuqvyecztee -06/28 sputum CF culture shows many Staph aureus and few Stenotrophomonas -C/w CF BPH, VEST ,Pulmozyme, 3%saline INH -C/w home Asthma Bronchodilator therapy and Budesonide 1mg BID -PRN Nasal [place] -close monitoring Assessment & Plan (07/07/2025 2:11 PM EDT): Recs per CF team: -Spirometry completed 07/06/2025 FEV1 54% -baseline 57% -Continue IV colistin 65 mg every 8 hours Day 10 -Continue IV Meropenem 2g IV q8 hours Day 10 -Continue IV minocycline 200 mg every 12 hours Day 10 -Inhaled colistin 150 mg BID -C/W Gfrquxsdyn-xpreiyfeb-tiygvipftozfb -06/28 sputum CF culture shows many Staph aureus and few Stenotrophomonas -C/w CF BPH, VEST ,Pulmozyme, 3%saline INH -C/w home Asthma Bronchodilator therapy and Budesonide 1mg BID -PRN Nasal [place] -close monitoring Assessment & Plan (07/06/2025 1:41 PM EDT): Recs per CF team: -Continue IV colistin 65 mg every 8 hours Day 9 -Continue IV Meropenem 2g IV q8 hours Day 9 -Continue IV minocycline 200 mg every 12 hours Day 9 -Inhaled colistin 150 mg BID -C/W Mozouzmgsz-ufsafynni-ytkcatopyusat - spirometry without bronchodilator-timing today -06/28 sputum CF culture shows many Staph aureus and few Stenotrophomonas -C/w CF BPH, VEST ,Pulmozyme, 3%saline INH -C/w home Asthma Bronchodilator therapy and Budesonide 1mg BID -PRN Nasal [place] -close monitoring Assessment & Plan (07/05/2025 12:18 PM EDT): Recs per CF team: -Continue IV colistin 65 mg every 8 hours Day 3 -Continue IV Meropenem 2g IV q8 hours Day 3 -Continue IV minocycline 200 mg every 12 hours Day 3 -Inhaled colistin 150 mg BID -C/W Ggaumqyeqb-vngmwsthu-uqrrerkhdghjb - spirometry without bronchodilator-timing likely next week -06/28 sputum CF culture shows many Staph aureus and few Stenotrophomonas -Continue IV fjluid 0.45 NS at 60cc/hr Day 3-will eval in am if needs to be continued additional 3 days for airway clearance. -C/w CF BPH, VEST ,Pulmozyme, 3%saline INH -C/w home Asthma Bronchodilator therapy and Budesonide 1mg BID -Cw ENT Pred taper 10 mg QOD -PRN Nasal [place] -close monitoring Assessment & Plan (07/04/2025 12:44 PM EDT): Recs per CF team: S/P Continue IV colistin 65 mg every 8 hours ,Continue IV Meropenem 2g IV q8 hours Continue IV minocycline 200 mg every 12 hours x days -Inhaled colistin 150 mg BID x days -C/W Gwaxfjbmcw-pvtsjnijb-xnpwugvoyirfv - spirometry at DC: -06/28 sputum CF culture shows many Staph aureus and few Stenotrophomonas . -C/w CF BPH, VEST ,Pulmozyme, 3%saline INH -C/w home Asthma Bronchodilator therapy and Budesonide 1mg BID -PRN Nasal [place] -F/U with CF Clinic Assessment & Plan (07/05/2025 6:52 AM EDT): Recs per CF team: -Continue IV colistin 65 mg every 8 hours Day 3 -Continue IV Meropenem 2g IV q8 hours Day 3 -Continue IV minocycline 200 mg every 12 hours Day 3 -Inhaled colistin 150 mg BID -C/W Lagnsffctu-amrlimxha-ctsdelkarkbli - spirometry without bronchodilator-timing likely next week -06/28 sputum CF culture shows many Staph aureus and few Stenotrophomonas -Continue IV fjluid 0.45 NS at 60cc/hr Day 3-will eval in am if needs to be continued additional 3 days for airway clearance. -C/w CF BPH, VEST ,Pulmozyme, 3%saline INH -C/w home Asthma Bronchodilator therapy and Budesonide 1mg BID -Cw ENT Pred taper 10 mg QOD -PRN Nasal [place] -close monitoring Assessment & Plan (07/03/2025 11:27 AM EDT): Recs per CF team: -Continue IV colistin 65 mg every 8 hours Day 3 -Continue IV Meropenem 2g IV q8 hours Day 3 -Continue IV minocycline 200 mg every 12 hours Day 3 -Inhaled colistin 150 mg BID -C/W Okfpgcvbsv-wsiybtstx-tgixunthbogml - spirometry without bronchodilator-timing likely next week -06/28 sputum CF culture shows many Staph aureus and few Stenotrophomonas -Continue IV fjluid 0.45 NS at 60cc/hr Day 3-will eval in am if needs to be continued additional 3 days for airway clearance. -C/w CF BPH, VEST ,Pulmozyme, 3%saline INH -C/w home Asthma Bronchodilator therapy and Budesonide 1mg BID -Cw ENT Pred taper 10 mg QOD -PRN Nasal [place] -close monitoring Assessment & Plan (07/02/2025 1:53 PM EDT): Recs per CF team: -Continue IV colistin 65 mg every 8 hours Day 3 -Continue IV Meropenem 2g IV q8 hours Day 3 -Continue IV minocycline 200 mg every 12 hours Day 3 -Inhaled colistin 150 mg BID -C/W Fmhysttzbb-oeusljkba-siopckcooefud - spirometry without bronchodilator-timing likely next week -06/28 sputum CF culture shows many Staph aureus and few Stenotrophomonas -Continue IV fjluid 0.45 NS at 60cc/hr Day 3-will eval in am if needs to be continued additional 3 days for airway clearance. -C/w CF BPH, VEST ,Pulmozyme, 3%saline INH -C/w home Asthma Bronchodilator therapy and Budesonide 1mg BID -Cw ENT Pred taper 10 mg QOD -PRN Nasal [place] -close monitoring Assessment & Plan (07/01/2025 3:14 PM EDT): Recs per CF team: -Continue IV colistin 65 mg every 8 hours Day 3 -Continue IV Meropenem 2g IV q8 hours Day 3 -Continue IV minocycline 200 mg every 12 hours Day 3 -Inhaled colistin 150 mg BID -C/W Pmhguildgd-kwlhbyqiu-hgdpfejsfjoae - spirometry without bronchodilator-timing likely next week -06/28 sputum CF culture shows many Staph aureus and few Stenotrophomonas -Continue IV fjluid 0.45 NS at 60cc/hr Day 3-will eval in am if needs to be continued additional 3 days for airway clearance. -C/w CF BPH, VEST ,Pulmozyme, 3%saline INH -C/w home Asthma Bronchodilator therapy and Budesonide 1mg BID -Cw ENT Pred taper 10 mg QOD -PRN Nasal [place] -close monitoring Assessment & Plan (06/30/2025 3:53 PM EDT): Res per CF team: -Continue IV colistin 65 mg every 8 hours Day 2 -Continue IV Meropenem 2g IV q8 hours Day 2 -Continue IV minocycline 200 mg every 12 hours Day 2 -Inhaled colistin 150 mg BID -C/W Tqoysnhyec-jmnaxnpth-scgndjqyakjzt - spirometry without bronchodilator-timing likely next week -06/28 sputum CF culture shows many Staph aureus and few Stenotrophomonas -Continue IV fjluid 0.45 NS at 60cc/hr Day 2 -C/w CF BPH, VEST ,Pulmozyme, 3%saline INH -C/w home Asthma Bronchodilator therapy and Budesonide 1mg BID -Cw ENT Pred taper 10 mg QOD -PRN Nasal [place] -close monitoring Assessment & Plan (06/30/2025 11:01 AM EDT): Res per CF team: -Continue IV colistin 65 mg every 8 hours -Continue IV Meropenem 2g IV q8 hours -Continue IV minocycline 200 mg every 12 hours -Inhaled colistin 150 mg BID -C/W Cviaemptkq-ydtcbnqqu-xkbkywsravych - spirometry without bronchodilator-timing likely next week -send Sputum for bacteria, fungus, and AFB (please label as cystic fibrosis in the comments section; Lab does special processing for CF sputum) -C/w CF BPH, VEST ,Pulmozyme, 3%saline INH -C/w home Asthma Bronchodilator therapy -increase Budesonide 1mg BID -Cw ENT Pred taper 10 mg QOD -PRN Nasal [place] -close monitoring Assessment & Plan (06/29/2025 4:49 PM EDT): Res per CF team: -Continue IV colistin 65 mg every 8 hours -Continue IV Meropenem 2g IV q8 hours -Continue IV minocycline 200 mg every 12 hours -Inhaled colistin 150 mg BID -C/W Pxjnodlbue-tsrnmfvuc-jhvpvrfedpndh - spirometry without bronchodilator-timing likely next week -send Sputum for bacteria, fungus, and AFB (please label as cystic fibrosis in the comments section; Lab does special processing for CF sputum) -C/w CF BPH, VEST ,Pulmozyme, 3%saline INH -C/w home Asthma Bronchodilator therapy -increase Budesonide 1mg BID -Cw ENT Pred taper 10 mg QOD -PRN Nasal [place] -close monitoring Lszgajfreuq57/15/2024Cystic ohnsbjlt39/15/2024 Assessment & Plan (06/03/2024 11:21 PM EDT): Chronic maintenance regimen: CFTR modulators: Trikafta - full dose without side effects Pulmozyme: daily Hypertonic saline: 3% BID Chronic Azithromycin (anti-inflammatory): 500 mg Mon; Wed; Fri Inhaled Abx: Cycles inhaled Ceftaz and Colistin alternating months Ibuprofen: NO but will work on kinetics and potentially start Nebulized short-acting bronchodilator: albuterol PEP device: [employer] VEST: BID ICS: budesonide twice daily Oral prednisone: as needed Pulm rehab: N Supplemental oxygen use: N/A Exercise and minutes per week: 5 hrs walking -Continue Trikafta -Increase HTS, dornase, and inhaled colistin while hospitalized -Hold AZM while on systemic antimicrobials -Nebulized albuterol q4h while awake -Percussion vest BID -Walk ad jennifer -IV colistin 60 mg every 8 hours -IV avycaz 2.5 grams every 8 hours -IV minocycline 200 mg every 12 hours -Inhaled colistin 150 mg every 12 hours -CMP, CBC, Magnesium, IgE, INR, PT, PTT, ESR, CRP, HgA1C, Vit D -serum test -spirometry without bronchodilator -Sputum for bacteria, fungus, and AFB Port-A-Cath in place04/01/2024Infection due to Stenotrophomonas maltophilia 03/23/2024Sinusitis (chronic)03/23/2024ystic fibrosis with pulmonary zycbdxytppktis74/25/2024BPA (allergic bronchopulmonary aspergillosis)02/12/2024 Assessment & Plan (07/12/2025 4:03 PM EDT): Recs per CF team: -Continue IV colistin 65 mg every 8 hours Day 9 -Continue IV Meropenem 2g IV q8 hours Day 9 -Continue IV minocycline 200 mg every 12 hours Day 9 -Inhaled colistin 150 mg BID -C/W Ifijphnepb-lozzpzjqr-fsuzwvuxezqlr - Spirometry 07/12/25 pending -Appreciate CF team recs ok for DC 07/13/25 -Plan for DC tomorrow afternoon -C/W Tulkvnphbq-itgqoayzw-bbtcikhkfxzqq -06/28 sputum CF culture shows many Staph aureus and few Stenotrophomonas -C/w CF BPH, VEST ,Pulmozyme, 3%saline INH -C/w home Asthma Bronchodilator therapy and Budesonide 1mg BID -PRN Nasal [place] -close monitoring Assessment & Plan (07/11/2025 3:32 PM EDT): Recs per CF team: -Spirometry completed 07/06/2025 FEV1 54% -baseline 57% -Continue IV colistin 65 mg every 8 hours Day 10 -Continue IV Meropenem 2g IV q8 hours Day 10 -Continue IV minocycline 200 mg every 12 hours Day 10 -Inhaled colistin 150 mg BID -C/W Kkoxbdycrv-baiuuqirl-vqmfylyyurjqt -06/28 sputum CF culture shows many Staph aureus and few Stenotrophomonas -C/w CF BPH, VEST ,Pulmozyme, 3%saline INH -C/w home Asthma Bronchodilator therapy and Budesonide 1mg BID -PRN Nasal [place] -close monitoring Assessment & Plan (07/10/2025 1:47 PM EDT): Recs per CF team: -Spirometry completed 07/06/2025 FEV1 54% -baseline 57% -Continue IV colistin 65 mg every 8 hours Day 10 -Continue IV Meropenem 2g IV q8 hours Day 10 -Continue IV minocycline 200 mg every 12 hours Day 10 -Inhaled colistin 150 mg BID -C/W Ezjeufgsak-qpkkljlpr-hegzvwttfnkua -06/28 sputum CF culture shows many Staph aureus and few Stenotrophomonas -C/w CF BPH, VEST ,Pulmozyme, 3%saline INH -C/w home Asthma Bronchodilator therapy and Budesonide 1mg BID -PRN Nasal [place] -close monitoring Assessment & Plan (07/09/2025 1:06 PM EDT): Recs per CF team: -Spirometry completed 07/06/2025 FEV1 54% -baseline 57% -Continue IV colistin 65 mg every 8 hours Day 10 -Continue IV Meropenem 2g IV q8 hours Day 10 -Continue IV minocycline 200 mg every 12 hours Day 10 -Inhaled colistin 150 mg BID -C/W Vsfjrqdvmq-umsavnthg-ozenqffpedhcv -06/28 sputum CF culture shows many Staph aureus and few Stenotrophomonas -C/w CF BPH, VEST ,Pulmozyme, 3%saline INH -C/w home Asthma Bronchodilator therapy and Budesonide 1mg BID -PRN Nasal [place] -close monitoring Assessment & Plan (07/08/2025 12:10 PM EDT): Recs per CF team: -Spirometry completed 07/06/2025 FEV1 54% -baseline 57% -Continue IV colistin 65 mg every 8 hours Day 10 -Continue IV Meropenem 2g IV q8 hours Day 10 -Continue IV minocycline 200 mg every 12 hours Day 10 -Inhaled colistin 150 mg BID -C/W Ktevwvokci-zvkoqowws-qpoetvccbvjwe -06/28 sputum CF culture shows many Staph aureus and few Stenotrophomonas -C/w CF BPH, VEST ,Pulmozyme, 3%saline INH -C/w home Asthma Bronchodilator therapy and Budesonide 1mg BID -PRN Nasal [place] -close monitoring Assessment & Plan (07/07/2025 2:11 PM EDT): Recs per CF team: -Spirometry completed 07/06/2025 FEV1 54% -baseline 57% -Continue IV colistin 65 mg every 8 hours Day 10 -Continue IV Meropenem 2g IV q8 hours Day 10 -Continue IV minocycline 200 mg every 12 hours Day 10 -Inhaled colistin 150 mg BID -C/W Cqumpsyktw-yajmgcqzv-zlkaczdytqpjy -06/28 sputum CF culture shows many Staph aureus and few Stenotrophomonas -C/w CF BPH, VEST ,Pulmozyme, 3%saline INH -C/w home Asthma Bronchodilator therapy and Budesonide 1mg BID -PRN Nasal [place] -close monitoring Assessment & Plan (07/06/2025 1:41 PM EDT): Recs per CF team: -Continue IV colistin 65 mg every 8 hours Day 9 -Continue IV Meropenem 2g IV q8 hours Day 9 -Continue IV minocycline 200 mg every 12 hours Day 9 -Inhaled colistin 150 mg BID -C/W Fxwfewaluf-wwpvbwveq-bcdahegxbidsa - spirometry without bronchodilator-timing today -06/28 sputum CF culture shows many Staph aureus and few Stenotrophomonas -C/w CF BPH, VEST ,Pulmozyme, 3%saline INH -C/w home Asthma Bronchodilator therapy and Budesonide 1mg BID -PRN Nasal [place] -close monitoring Assessment & Plan (07/05/2025 12:18 PM EDT): Recs per CF team: -Continue IV colistin 65 mg every 8 hours Day 3 -Continue IV Meropenem 2g IV q8 hours Day 3 -Continue IV minocycline 200 mg every 12 hours Day 3 -Inhaled colistin 150 mg BID -C/W Ipuuqkjlim-xpfjmvtud-jmhdzdxpjgall - spirometry without bronchodilator-timing likely next week -06/28 sputum CF culture shows many Staph aureus and few Stenotrophomonas -Continue IV fjluid 0.45 NS at 60cc/hr Day 3-will eval in am if needs to be continued additional 3 days for airway clearance. -C/w CF BPH, VEST ,Pulmozyme, 3%saline INH -C/w home Asthma Bronchodilator therapy and Budesonide 1mg BID -Cw ENT Pred taper 10 mg QOD -PRN Nasal [place] -close monitoring Assessment & Plan (07/04/2025 12:44 PM EDT): Recs per CF team: S/P Continue IV colistin 65 mg every 8 hours ,Continue IV Meropenem 2g IV q8 hours Continue IV minocycline 200 mg every 12 hours x days -Inhaled colistin 150 mg BID x days -C/W Spgtmsguxb-wdtyddxir-apvnytabjakyv - spirometry at DC: -06/28 sputum CF culture shows many Staph aureus and few Stenotrophomonas . -C/w CF BPH, VEST ,Pulmozyme, 3%saline INH -C/w home Asthma Bronchodilator therapy and Budesonide 1mg BID -PRN Nasal [place] -F/U with CF Clinic Assessment & Plan (07/05/2025 6:52 AM EDT): Recs per CF team: -Continue IV colistin 65 mg every 8 hours Day 3 -Continue IV Meropenem 2g IV q8 hours Day 3 -Continue IV minocycline 200 mg every 12 hours Day 3 -Inhaled colistin 150 mg BID -C/W Vqkuekqhhg-enywuqvkx-vbyxdslcxcwkm - spirometry without bronchodilator-timing likely next week -06/28 sputum CF culture shows many Staph aureus and few Stenotrophomonas -Continue IV fjluid 0.45 NS at 60cc/hr Day 3-will eval in am if needs to be continued additional 3 days for airway clearance. -C/w CF BPH, VEST ,Pulmozyme, 3%saline INH -C/w home Asthma Bronchodilator therapy and Budesonide 1mg BID -Cw ENT Pred taper 10 mg QOD -PRN Nasal [place] -close monitoring Assessment & Plan (07/03/2025 11:27 AM EDT): Recs per CF team: -Continue IV colistin 65 mg every 8 hours Day 3 -Continue IV Meropenem 2g IV q8 hours Day 3 -Continue IV minocycline 200 mg every 12 hours Day 3 -Inhaled colistin 150 mg BID -C/W Mddfbyuony-cpblztpqs-qkqagorrznkak - spirometry without bronchodilator-timing likely next week -06/28 sputum CF culture shows many Staph aureus and few Stenotrophomonas -Continue IV fjluid 0.45 NS at 60cc/hr Day 3-will eval in am if needs to be continued additional 3 days for airway clearance. -C/w CF BPH, VEST ,Pulmozyme, 3%saline INH -C/w home Asthma Bronchodilator therapy and Budesonide 1mg BID -Cw ENT Pred taper 10 mg QOD -PRN Nasal [place] -close monitoring Assessment & Plan (07/02/2025 1:53 PM EDT): Recs per CF team: -Continue IV colistin 65 mg every 8 hours Day 3 -Continue IV Meropenem 2g IV q8 hours Day 3 -Continue IV minocycline 200 mg every 12 hours Day 3 -Inhaled colistin 150 mg BID -C/W Pivdyhbzfq-walwmbeux-fwpiiormzbkwv - spirometry without bronchodilator-timing likely next week -06/28 sputum CF culture shows many Staph aureus and few Stenotrophomonas -Continue IV fjluid 0.45 NS at 60cc/hr Day 3-will eval in am if needs to be continued additional 3 days for airway clearance. -C/w CF BPH, VEST ,Pulmozyme, 3%saline INH -C/w home Asthma Bronchodilator therapy and Budesonide 1mg BID -Cw ENT Pred taper 10 mg QOD -PRN Nasal [place] -close monitoring Assessment & Plan (07/01/2025 3:14 PM EDT): Recs per CF team: -Continue IV colistin 65 mg every 8 hours Day 3 -Continue IV Meropenem 2g IV q8 hours Day 3 -Continue IV minocycline 200 mg every 12 hours Day 3 -Inhaled colistin 150 mg BID -C/W Ooetznmlmg-koxilrtfh-qimhissrbcwba - spirometry without bronchodilator-timing likely next week -06/28 sputum CF culture shows many Staph aureus and few Stenotrophomonas -Continue IV fjluid 0.45 NS at 60cc/hr Day 3-will eval in am if needs to be continued additional 3 days for airway clearance. -C/w CF BPH, VEST ,Pulmozyme, 3%saline INH -C/w home Asthma Bronchodilator therapy and Budesonide 1mg BID -Cw ENT Pred taper 10 mg QOD -PRN Nasal [place] -close monitoring Assessment & Plan (06/30/2025 3:53 PM EDT): Res per CF team: -Continue IV colistin 65 mg every 8 hours Day 2 -Continue IV Meropenem 2g IV q8 hours Day 2 -Continue IV minocycline 200 mg every 12 hours Day 2 -Inhaled colistin 150 mg BID -C/W Dwkdqtjbtt-bwkqxdfxr-vptawqjqtnwnz - spirometry without bronchodilator-timing likely next week -06/28 sputum CF culture shows many Staph aureus and few Stenotrophomonas -Continue IV fjluid 0.45 NS at 60cc/hr Day 2 -C/w CF BPH, VEST ,Pulmozyme, 3%saline INH -C/w home Asthma Bronchodilator therapy and Budesonide 1mg BID -Cw ENT Pred taper 10 mg QOD -PRN Nasal [place] -close monitoring Assessment & Plan (06/30/2025 11:01 AM EDT): Res per CF team: -Continue IV colistin 65 mg every 8 hours -Continue IV Meropenem 2g IV q8 hours -Continue IV minocycline 200 mg every 12 hours -Inhaled colistin 150 mg BID -C/W Foluhvytrk-xbjxzuwgw-woqrjkthpfefz - spirometry without bronchodilator-timing likely next week -send Sputum for bacteria, fungus, and AFB (please label as cystic fibrosis in the comments section; Lab does special processing for CF sputum) -C/w CF BPH, VEST ,Pulmozyme, 3%saline INH -C/w home Asthma Bronchodilator therapy -increase Budesonide 1mg BID -Cw ENT Pred taper 10 mg QOD -PRN Nasal [place] -close monitoring Assessment & Plan (06/29/2025 4:49 PM EDT): Res per CF team: -Continue IV colistin 65 mg every 8 hours -Continue IV Meropenem 2g IV q8 hours -Continue IV minocycline 200 mg every 12 hours -Inhaled colistin 150 mg BID -C/W Gihdgeyiba-khwosxecy-wvpcyqvuqqwmr - spirometry without bronchodilator-timing likely next week -send Sputum for bacteria, fungus, and AFB (please label as cystic fibrosis in the comments section; Lab does special processing for CF sputum) -C/w CF BPH, VEST ,Pulmozyme, 3%saline INH -C/w home Asthma Bronchodilator therapy -increase Budesonide 1mg BID -Cw ENT Pred taper 10 mg QOD -PRN Nasal [place] -close monitoring Assessment & Plan (06/03/2024 11:24 PM EDT): -Follow IgE level -Previously did 10 weeks of Itraconazole in 2021 Chronic cpdrbsxnhtuo41/25/2024History of infection by MDR Stenotrophomonas bayzlgrebvz38/25/2024 Assessment & Plan (06/03/2024 11:22 PM EDT): Home regimen: ---Inhaled antibiotic: [place] every other month ---Second inhaled antibiotic: ceftaz , every other month alternating with the first inhaled antibiotic ---Chronic azithromycin as anti-inflammatory As per cystic fibrosis exacerbation , Avycaz, Colistin, minocycline, hold AZM Gtfaffhmjf74/25/2024oorly controlled persistent wbrkee6702/12/2024 Assessment & Plan (06/03/2024 11:23 PM EDT): Home regimen: - Spriva 2.5mcg daily - AirDuo 232-14 - 1 puff BID - Pulmicort 1 mg nebulized daily -Increase pulmicort to BID -Albuterol q4h while awake Staph aureus apcvmgyne87/25/2024ancreatic iooqjryjovzjm81/25/2024 Assessment & Plan (07/12/2025 4:03 PM EDT): Plan: -C/w home Enzymes -continue PPI Assessment & Plan (07/11/2025 3:32 PM EDT): Plan: -C/w home Enzymes -continue PPI Assessment & Plan (07/10/2025 1:47 PM EDT): Plan: -C/w home Enzymes -continue PPI Assessment & Plan (07/09/2025 1:06 PM EDT): Plan: -C/w home Enzymes -continue PPI Assessment & Plan (07/08/2025 12:10 PM EDT): Plan: -C/w home Enzymes -continue PPI Assessment & Plan (07/07/2025 2:11 PM EDT): Plan: -C/w home Enzymes -continue PPI Assessment & Plan (07/06/2025 1:41 PM EDT): Plan: -C/w home Enzymes -continue PPI Dispo:D/C home when pt is medically stable Assessment & Plan (07/05/2025 12:18 PM EDT): -C/w home Enzymes -continue PPI Dispo:D/C home when pt is medically stable Assessment & Plan (07/04/2025 12:44 PM EDT): -C/w home Enzymes -continue PPI Dispo:D/C home when pt is medically stable Assessment & Plan (07/05/2025 6:52 AM EDT): -C/w home Enzymes -continue PPI Dispo:D/C home when pt is medically stable Assessment & Plan (07/03/2025 11:27 AM EDT): -C/w home Enzymes -continue PPI Dispo:D/C home when pt is medically stable Assessment & Plan (07/02/2025 1:53 PM EDT): -C/w home Enzymes -continue PPI Dispo:D/C home when pt is medically stable Assessment & Plan (07/01/2025 3:14 PM EDT): -C/w home Enzymes -continue PPI Dispo:D/C home when pt is medically stable Assessment & Plan (06/30/2025 3:53 PM EDT): -C/w home Enzymes -continue PPI Dispo:D/C home when pt is medically stable Assessment & Plan (06/30/2025 11:01 AM EDT): -C/w home Enzymes -continue PPI Assessment & Plan (06/29/2025 4:49 PM EDT): -C/w home Enzymes -continue PPI Assessment & Plan (06/03/2024 11:24 PM EDT): ---Creon 24,000, 2-3 BEFORE meals AND 1 BEFORE snacks ---Fat soluble supplemental vitamins: cholecalciferol 5,000 daily Resolved Problems ProblemNoted DateDiagnosed DateResolved VjwtVwflttbqjvujpy19/12/202509/24/2025 Assessment & Plan (07/12/2025 4:03 PM EDT): Plan: Replete to goal above 2 Disposition: D/C home when pt is medically stable. Assessment & Plan (07/11/2025 3:32 PM EDT): Plan: Replete to goal above 2 Disposition: D/C home when pt is medically stable. Assessment & Plan (07/10/2025 1:47 PM EDT): Plan: Replete to goal above 2 Assessment & Plan (07/09/2025 1:06 PM EDT): Plan: Replete to goal above 2 Disposition: D/C home when pt is medically stable. Assessment & Plan (07/08/2025 12:10 PM EDT): Plan: Replete to goal above 2 Disposition: D/C home when pt is medically stable. Assessment & Plan (07/07/2025 2:11 PM EDT): Plan: Replete to goal above 2 Disposition: D/C home when pt is medically stable. Assessment & Plan (07/06/2025 1:41 PM EDT): Plan: Replete to goal above 2 Disposition: D/C home when pt is medically stable. Assessment & Plan (07/05/2025 12:18 PM EDT): Replete to goal above 2 Assessment & Plan (07/04/2025 12:44 PM EDT): Resolved Assessment & Plan (07/05/2025 6:52 AM EDT): Replete to goal above 2 Assessment & Plan (07/03/2025 11:27 AM EDT): Replete to goal above 2 Assessment & Plan (07/02/2025 1:53 PM EDT): Replete to goal above 2 Assessment & Plan (07/01/2025 3:14 PM EDT): Replete to goal above 2 Acute vxgsmkksw51Hypokalemia/ Assessment & Plan (07/12/2025 4:03 PM EDT): Plan: Replete K+ PRN to goal above 3.5 Assessment & Plan (07/11/2025 3:32 PM EDT): Plan: Replete K+ PRN to goal above 3.5 Assessment & Plan (07/10/2025 1:47 PM EDT): Plan: Replete K+ PRN to goal above 3.5 Assessment & Plan (07/09/2025 1:06 PM EDT): Plan: Replete K+ PRN to goal above 3.5 Assessment & Plan (07/08/2025 12:10 PM EDT): Plan: Replete K+ to goal above 3.5 Assessment & Plan (07/07/2025 2:11 PM EDT): Plan: Replete K+ to goal above 3.5 Assessment & Plan (07/06/2025 1:41 PM EDT): Plan: Replete K+ to goal above 3.5 Assessment & Plan (07/05/2025 12:18 PM EDT): Replete K+ to goal above 3.5 Assessment & Plan (07/04/2025 12:44 PM EDT): Resolved Assessment & Plan (07/05/2025 6:52 AM EDT): Replete K+ to goal above 3.5 Assessment & Plan (07/03/2025 11:27 AM EDT): Replete K+ to goal above 3.5 Assessment & Plan (07/02/2025 1:53 PM EDT): Replete K+ to goal above 3.5 Assessment & Plan (07/01/2025 3:14 PM EDT): Replete K+ to goal above 3.5 Assessment & Plan (06/30/2025 3:53 PM EDT): Replete K+ to goal above 3.5 Microcytic zqxzlo97/04//ystic fibrosis with pulmonary exacerbation 03/22// Assessment & Plan (07/12/2025 4:03 PM EDT): Recs per CF team: -Continue IV colistin 65 mg every 8 hours Day 9 -Continue IV Meropenem 2g IV q8 hours Day 9 -Continue IV minocycline 200 mg every 12 hours Day 9 -Inhaled colistin 150 mg BID -C/W Aciogkxhix-mgwboqoki-pyfrrltuidvsz - Spirometry 07/12/25 pending -Appreciate CF team recs ok for DC 07/13/25 -Plan for DC tomorrow afternoon -C/W Cwgumxjtsx-wnzxhmzta-eykdxbxunferm -06/28 sputum CF culture shows many Staph aureus and few Stenotrophomonas -C/w CF BPH, VEST ,Pulmozyme, 3%saline INH -C/w home Asthma Bronchodilator therapy and Budesonide 1mg BID -PRN Nasal [place] -close monitoring Assessment & Plan (07/11/2025 3:32 PM EDT): Recs per CF team: -Spirometry completed 07/06/2025 FEV1 54% -baseline 57% -Continue IV colistin 65 mg every 8 hours Day 10 -Continue IV Meropenem 2g IV q8 hours Day 10 -Continue IV minocycline 200 mg every 12 hours Day 10 -Inhaled colistin 150 mg BID -C/W Keisyyxlmi-teuwpqiwm-knezrrqoxrvxn -06/28 sputum CF culture shows many Staph aureus and few Stenotrophomonas -C/w CF BPH, VEST ,Pulmozyme, 3%saline INH -C/w home Asthma Bronchodilator therapy and Budesonide 1mg BID -PRN Nasal [place] -close monitoring Assessment & Plan (07/10/2025 1:47 PM EDT): Recs per CF team: -Spirometry completed 07/06/2025 FEV1 54% -baseline 57% -Continue IV colistin 65 mg every 8 hours Day 10 -Continue IV Meropenem 2g IV q8 hours Day 10 -Continue IV minocycline 200 mg every 12 hours Day 10 -Inhaled colistin 150 mg BID -C/W Msalxcevum-thqvfqoct-gldaavmwtafvo -06/28 sputum CF culture shows many Staph aureus and few Stenotrophomonas -C/w CF BPH, VEST ,Pulmozyme, 3%saline INH -C/w home Asthma Bronchodilator therapy and Budesonide 1mg BID -PRN Nasal [place] -close monitoring Assessment & Plan (07/09/2025 1:06 PM EDT): Recs per CF team: -Spirometry completed 07/06/2025 FEV1 54% -baseline 57% -Continue IV colistin 65 mg every 8 hours Day 10 -Continue IV Meropenem 2g IV q8 hours Day 10 -Continue IV minocycline 200 mg every 12 hours Day 10 -Inhaled colistin 150 mg BID -C/W Ufxvagvzuv-kyzvaswhc-fidpbavjohgsx -06/28 sputum CF culture shows many Staph aureus and few Stenotrophomonas -C/w CF BPH, VEST ,Pulmozyme, 3%saline INH -C/w home Asthma Bronchodilator therapy and Budesonide 1mg BID -PRN Nasal [place] -close monitoring Assessment & Plan (07/08/2025 12:10 PM EDT): Recs per CF team: -Spirometry completed 07/06/2025 FEV1 54% -baseline 57% -Continue IV colistin 65 mg every 8 hours Day 10 -Continue IV Meropenem 2g IV q8 hours Day 10 -Continue IV minocycline 200 mg every 12 hours Day 10 -Inhaled colistin 150 mg BID -C/W Kkemtfbyve-erotyhxkh-hcuwfxvsutpsa -06/28 sputum CF culture shows many Staph aureus and few Stenotrophomonas -C/w CF BPH, VEST ,Pulmozyme, 3%saline INH -C/w home Asthma Bronchodilator therapy and Budesonide 1mg BID -PRN Nasal [place] -close monitoring Assessment & Plan (07/07/2025 2:11 PM EDT): Recs per CF team: -Spirometry completed 07/06/2025 FEV1 54% -baseline 57% -Continue IV colistin 65 mg every 8 hours Day 10 -Continue IV Meropenem 2g IV q8 hours Day 10 -Continue IV minocycline 200 mg every 12 hours Day 10 -Inhaled colistin 150 mg BID -C/W Gqpxwuunfi-eeivbtcgm-kgvoigwxwpxfa -06/28 sputum CF culture shows many Staph aureus and few Stenotrophomonas -C/w CF BPH, VEST ,Pulmozyme, 3%saline INH -C/w home Asthma Bronchodilator therapy and Budesonide 1mg BID -PRN Nasal [place] -close monitoring Assessment & Plan (07/06/2025 1:41 PM EDT): Recs per CF team: -Continue IV colistin 65 mg every 8 hours Day 9 -Continue IV Meropenem 2g IV q8 hours Day 9 -Continue IV minocycline 200 mg every 12 hours Day 9 -Inhaled colistin 150 mg BID -C/W Urmpbspfnq-tgznjfxsv-dmexsmkbzvuoi - spirometry without bronchodilator-timing today -06/28 sputum CF culture shows many Staph aureus and few Stenotrophomonas -C/w CF BPH, VEST ,Pulmozyme, 3%saline INH -C/w home Asthma Bronchodilator therapy and Budesonide 1mg BID -PRN Nasal [place] -close monitoring Assessment & Plan (07/05/2025 12:18 PM EDT): Recs per CF team: -Continue IV colistin 65 mg every 8 hours Day 3 -Continue IV Meropenem 2g IV q8 hours Day 3 -Continue IV minocycline 200 mg every 12 hours Day 3 -Inhaled colistin 150 mg BID -C/W Mbxlkanlgu-nslciakxt-zavhhaaacgpjg - spirometry without bronchodilator-timing likely next week -06/28 sputum CF culture shows many Staph aureus and few Stenotrophomonas -Continue IV fjluid 0.45 NS at 60cc/hr Day 3-will eval in am if needs to be continued additional 3 days for airway clearance. -C/w CF BPH, VEST ,Pulmozyme, 3%saline INH -C/w home Asthma Bronchodilator therapy and Budesonide 1mg BID -Cw ENT Pred taper 10 mg QOD -PRN Nasal [place] -close monitoring Assessment & Plan (07/04/2025 12:44 PM EDT): Recs per CF team: S/P Continue IV colistin 65 mg every 8 hours ,Continue IV Meropenem 2g IV q8 hours Continue IV minocycline 200 mg every 12 hours x days -Inhaled colistin 150 mg BID x days -C/W Pmjpnsabqf-vadpwbyti-uqupmzocdpskf - spirometry at DC: -06/28 sputum CF culture shows many Staph aureus and few Stenotrophomonas . -C/w CF BPH, VEST ,Pulmozyme, 3%saline INH -C/w home Asthma Bronchodilator therapy and Budesonide 1mg BID -PRN Nasal [place] -F/U with CF Clinic Assessment & Plan (07/05/2025 6:52 AM EDT): Recs per CF team: -Continue IV colistin 65 mg every 8 hours Day 3 -Continue IV Meropenem 2g IV q8 hours Day 3 -Continue IV minocycline 200 mg every 12 hours Day 3 -Inhaled colistin 150 mg BID -C/W Muguodosam-igyoueyaq-gjwbzvorubddg - spirometry without bronchodilator-timing likely next week -06/28 sputum CF culture shows many Staph aureus and few Stenotrophomonas -Continue IV fjluid 0.45 NS at 60cc/hr Day 3-will eval in am if needs to be continued additional 3 days for airway clearance. -C/w CF BPH, VEST ,Pulmozyme, 3%saline INH -C/w home Asthma Bronchodilator therapy and Budesonide 1mg BID -Cw ENT Pred taper 10 mg QOD -PRN Nasal [place] -close monitoring Assessment & Plan (07/03/2025 11:27 AM EDT): Recs per CF team: -Continue IV colistin 65 mg every 8 hours Day 3 -Continue IV Meropenem 2g IV q8 hours Day 3 -Continue IV minocycline 200 mg every 12 hours Day 3 -Inhaled colistin 150 mg BID -C/W Yweqjgqozt-hmswqvayd-yjaywiaoeubxj - spirometry without bronchodilator-timing likely next week -06/28 sputum CF culture shows many Staph aureus and few Stenotrophomonas -Continue IV fjluid 0.45 NS at 60cc/hr Day 3-will eval in am if needs to be continued additional 3 days for airway clearance. -C/w CF BPH, VEST ,Pulmozyme, 3%saline INH -C/w home Asthma Bronchodilator therapy and Budesonide 1mg BID -Cw ENT Pred taper 10 mg QOD -PRN Nasal [place] -close monitoring Assessment & Plan (07/02/2025 1:53 PM EDT): Recs per CF team: -Continue IV colistin 65 mg every 8 hours Day 3 -Continue IV Meropenem 2g IV q8 hours Day 3 -Continue IV minocycline 200 mg every 12 hours Day 3 -Inhaled colistin 150 mg BID -C/W Wtbvlmzyzi-unwlxxcpo-vmluqnnzezkys - spirometry without bronchodilator-timing likely next week -06/28 sputum CF culture shows many Staph aureus and few Stenotrophomonas -Continue IV fjluid 0.45 NS at 60cc/hr Day 3-will eval in am if needs to be continued additional 3 days for airway clearance. -C/w CF BPH, VEST ,Pulmozyme, 3%saline INH -C/w home Asthma Bronchodilator therapy and Budesonide 1mg BID -Cw ENT Pred taper 10 mg QOD -PRN Nasal [place] -close monitoring Assessment & Plan (07/01/2025 3:14 PM EDT): Recs per CF team: -Continue IV colistin 65 mg every 8 hours Day 3 -Continue IV Meropenem 2g IV q8 hours Day 3 -Continue IV minocycline 200 mg every 12 hours Day 3 -Inhaled colistin 150 mg BID -C/W Fiwqdupftx-jgkpkqyvw-pauvkjcnzbyfi - spirometry without bronchodilator-timing likely next week -06/28 sputum CF culture shows many Staph aureus and few Stenotrophomonas -Continue IV fjluid 0.45 NS at 60cc/hr Day 3-will eval in am if needs to be continued additional 3 days for airway clearance. -C/w CF BPH, VEST ,Pulmozyme, 3%saline INH -C/w home Asthma Bronchodilator therapy and Budesonide 1mg BID -Cw ENT Pred taper 10 mg QOD -PRN Nasal [place] -close monitoring Assessment & Plan (06/30/2025 3:53 PM EDT): Res per CF team: -Continue IV colistin 65 mg every 8 hours Day 2 -Continue IV Meropenem 2g IV q8 hours Day 2 -Continue IV minocycline 200 mg every 12 hours Day 2 -Inhaled colistin 150 mg BID -C/W Pcexqaahtn-qxwexlvdz-uzcyunpvficoy - spirometry without bronchodilator-timing likely next week -06/28 sputum CF culture shows many Staph aureus and few Stenotrophomonas -Continue IV fjluid 0.45 NS at 60cc/hr Day 2 -C/w CF BPH, VEST ,Pulmozyme, 3%saline INH -C/w home Asthma Bronchodilator therapy and Budesonide 1mg BID -Cw ENT Pred taper 10 mg QOD -PRN Nasal [place] -close monitoring Assessment & Plan (06/30/2025 11:01 AM EDT): Res per CF team: -Continue IV colistin 65 mg every 8 hours -Continue IV Meropenem 2g IV q8 hours -Continue IV minocycline 200 mg every 12 hours -Inhaled colistin 150 mg BID -C/W Gecctlictr-juslcbgsl-mkfdkxyxptmvw - spirometry without bronchodilator-timing likely next week -send Sputum for bacteria, fungus, and AFB (please label as cystic fibrosis in the comments section; Lab does special processing for CF sputum) -C/w CF BPH, VEST ,Pulmozyme, 3%saline INH -C/w home Asthma Bronchodilator therapy -increase Budesonide 1mg BID -Cw ENT Pred taper 10 mg QOD -PRN Nasal [place] -close monitoring Assessment & Plan (06/29/2025 4:49 PM EDT): Res per CF team: -Continue IV colistin 65 mg every 8 hours -Continue IV Meropenem 2g IV q8 hours -Continue IV minocycline 200 mg every 12 hours -Inhaled colistin 150 mg BID -C/W Menhlpyicu-tzutgvphq-frkwwanahuclr - spirometry without bronchodilator-timing likely next week -send Sputum for bacteria, fungus, and AFB (please label as cystic fibrosis in the comments section; Lab does special processing for CF sputum) -C/w CF BPH, VEST ,Pulmozyme, 3%saline INH -C/w home Asthma Bronchodilator therapy -increase Budesonide 1mg BID -Cw ENT Pred taper 10 mg QOD -PRN Nasal [place] -close monitoring Aspergillus mpfrdrpvu49/ Encounters DateTypeDepartmentCare MekqHicowqotwrk74/06/2025Patient Update Pulmonary Medicine [address] [phone] Chilo Small MD Medication Preauthorization (Dupixent - NEW)08/25/2025Telephone Pulmonary Medicine [address] [place] [address] Chilo Small MD 08/24/2025Telephone Pulmonary Medicine [address] [place] [address] Tanesha Pillai LISW Patient Update (All over severe muscle pain)08/23/2025Patient Update Pulmonary Medicine [address] [place] [address] Chilo Small MD Medication Preauthorization (Dupixent - NEW)08/23/2025Telephone Pulmonary Medicine [address] [place] [address] Chilo Small MD Orders (CALLBACK REQUEST - to [facility] - [phone] - RE: Pt. Lucie Bowen - [id number]/Message: Essence is a pt. of Dr Small... the pharmacy called to check the status of a prior authorization on Rx Dupixent. Thanks much! /)08/22/2025 Patient Msg Pulmonary Medicine [address] [place], [place] [phone] Tanesha Pillai LISW Bmhdbkz88/31/2025Telephone Pulmonary Medicine [address] [phone] Chilo Small MD Medication Authorization (Cover my meds); Prior Authorization ([place]) 08/19/2025Telephone Pulmonary Medicine [address] [phone] Chilo Small MD Medication Authorization (yupelei 175mcg/3m solution)08/19/2025Telephone Pulmonary Medicine [address] [phone] Chilo Small MD Medication Authorization ([facility])08/17/2025 11:[facility] [address] [place], [place] [phone] Cassandra La MD Prediabetes (Primary Dx); Cystic fibrosis with pulmonary manifestations (HCC)08/17/20254009Arfcih41/28/2025 4:00 PM EDTOffice Visit Pulmonary Medicine [address] [place], [place] [phone] Chilo Small MD Cystic fibrosis (HCC) (Primary Dx); Mucopurulent chronic bronchitis (HCC); Chronic sinusitis, unspecified location; Chronic obstructive pulmonary disease, unspecified COPD type (HCC); Chronic lthjbxuhnpxrnr78/28/2025 3:45 PM EDTProcedure Pulmonary Medicine [address] [place], [place] [phone] Main, Cf Pulm Lab Iohicjuovt73/28/8887Jborlh26/21/2025bstract Pulmonary Medicine [address] [place], [place] [phone] Natalie Gonzalez RN 07/29/2025Telephone Pulmonary Medicine [address] [phone] Hailee Seo APRN.CNP 07/27/2025 Get Medical Advice Pulmonary Medicine [address] [place], [place] [phone] Hailee Seo APRN.DOORMAKER Appointment today07/22/2025bstract Pulmonary Medicine [address] [place] [address] Meri Post RRT Pre - Visit Snelneay48/23/2025 2:45 PM EDTOffice Visit Pulmonary Medicine [address] [place] [address] Main, Cf Pulm Lab CF (cystic fibrosis) (HCC) (Primary Dx)07/06/2025 2:00 PM EDTOffice Visit Pulmonary Medicine [address] [place] [address] Main, Cf Pulm Lab CF (cystic fibrosis) (HCC) (Primary Dx)06/30/2025Patient Update Infectious Disease [address] [phone] Cathy Graham MD CoPat Start06/29/2025 1:15 PM EDTOffice Visit Pulmonary Medicine [address] [place] [address] Main, Cf Pulm Lab CF (cystic fibrosis) ([facility]) (Primary Dx)06/28/2025 5:12 PM EDT - 07/13/2025 4:31 PM EDTHospital Encounter [id number] [phone] Soraya Freedman MD Balakrishnan, Bathmapriya, MD Taliercio, Rachel M, DO Cystic fibrosis ([facility]) [E84.9] Discharge Disposition: Home06/28/20250787Mdiaof21/08/2025 Get Medical Advice Pulmonary Medicine [address] [place], [place] [phone] Hailee Seo, LEANDER.DOORMAKER bstuybxev86/05/2025Refill Pulmonary Medicine [address] [phone] Hailee Seo, LEANDER.DOORMAKER Refill Uvmtahz6206/24/2025Orders Only Pulmonary Medicine [address] [place], [place] [phone] Natalie Gonzalez RN Cystic fibrosis with pulmonary manifestations ([facility]); Cystic fibrosis ([facility])06/24/2025Telephone Pulmonary Medicine [address] [phone] Hailee Seo, LEANDER.DOORMAKER 06/23/2025Telephone Otolaryngology [address] [phone] Drea Amin, KAMILLE 06/23/2025Telephone Otolaryngology [address] [phone] Sherice Castrejon MD 06/14/2025 Get Medical Advice Pulmonary Medicine [address] [place], [place] [phone] Hailee Seo APRN.DOORMAKER Uoxtualwhj88/19/2025bstract Pulmonary Medicine [address] [address] Hailee Seo APRN.DOORMAKER 06/04/2025Refill Pulmonary Medicine [address] [address] Hailee Seo APRN.DOORMAKER Refill Isuirag3506/02/2025 Patient Msg Otolaryngology [address] [address] [address] Chaaban06/02/2025E-Consult Infectious Disease [address] [phone] Mary Jane Tadeo DO Clinician To Clinician Ilfnnvb5106/02/2025Orders Only Otolaryngology [address] [phone] Sherice Castrejon MD Other chronic sinusitis (Primary Dx)from Last 3 Months Immunizations ImmunizationAdministration DatesNext DueCO vaccine, unspecified svueihmdbio48/19/2022Haemophilus influenzae b (Hib PRP-T) vaccine, 4-dose series (ACTHIB, HIBERIX)09/12/2004Haemophilus influenzae b (Hib) vaccine, unspecified vpbjdgzlyvc39/30/2004,2003,2003Haemophilus influenzae b-hepatitis B (Hib-HepB) vaccine (COMVAX)06/18/2004diphtheria tetanus pertussis (DTaP) vaccine, pediatric (INFANRIX)03/07/2008,09/12/2004,2003,2003, 2003hepatitis A (HepA) vaccine, adult (HAVRIX, VAQTA)03/07/2008,08/27/2007 hepatitis B (HepB) vaccine, 3-dose series, age 20+ yr (ENGERIX-B, RECOMBIVAX HB) 06/18/2004,2003,2003human papillomavirus (HPV4) vaccine, quadrivalent (GARDASIL)12/22/2014influenza (IIV3) vaccine, age 6 mo - 64 yr, trivalent, PF (AFLURIA, FLUARIX, FLULAVAL, FLUVIRIN, FLUZONE)07/13/2025, 07/06/2025(Deferred: Patient Refused)influenza (IIV3) vaccine, trivalent (AFLURIA, FLULAVAL, FLUVIRIN, FLUZONE)07/25/2009,08/30/2008influenza (IIV3) vaccine, trivalent, PF (AFLURIA, FLUARIX, FLULAVAL, FLUVIRIN, FLUZONE)07/02/2016 ,08/26/2013,06/23/2012,08/05/2011influenza (IIV4) vaccine, age 6 mo - 64 yr, quadrivalent, PF (AFLURIA, FLUARIX, FLULAVAL, FLUZONE)08/15/2022,08/29/2020, 09/23/2019,09/03/2018,08/12/2017influenza (IIV4) vaccine, quadrivalent (AFLURIA, FLULAVAL, FLUZONE)10/11/2014influenza (LAIV) vaccine, nasal, unspecified jtviizonugy75/12/2010influenza vaccine, whole virus08/29/2005measles mumps rubella (MMR) vaccine (M-M-R II, PRIORIX)08/30/2008,09/12/2004meningococcal (MenACWY-D) vaccine, quadrivalent (MENACTRA)12/22/2014novel influenza (K4A5-43) lneemah6811/15/2009pneumococcal (PCV7) vaccine, 7 valent (PREVNAR 7)09/12/2004, 2003pneumococcal conjugate (PCV13) vaccine, 13 valent (PREVNAR 13) 07/02/2016pneumococcal vaccine, unspecified vkibicufmjo01/27/2010,2003, 2003poliovirus (IPV) vaccine, inactivated (IPOL)03/07/2008,03/26/2004, 2003,2003tetanus diphtheria pertussis (Tdap) vaccine, age 7+ yr (ADACEL, BOOSTRIX)12/22/2014varicella (ROSEANNE) vaccine (VARIVAX)11/15/2009, 06/18/2004 Family History Medical HistoryRelationCommentsDiabetesMotherprediabetesCystic FibrosisSister RelationStatusCommentsMotherSisterAlive Social History Tobacco UseTypesPacks/DayYears UsedDateSmoking Tobacco: NeverPassive [...] living in a assisted (including now)?No06/29/2025HC UtilitiesAnswerDate RecordedIn the past 12 months has the [place], gas, oil, or water [employer] threatened to shut off services in your home?No06/29/2025rea Deprivation IndexAnswerDate RecordedNational Score (1- 100), lower number is lower hgfo492707/27/2025State Score (1-10), lower number is lower thgr541Data from: https://www.neighborhoodatlas.medicine.[facility].edu/. Last address used for [address] [facility]07/27/2025CommentsUnknownSex and Gender InformationValueDate RecordedSex Assigned at BirthNot on fileLegal SexFemale 09/03/2022 2:34 PM ESTGender IdentityNot on fileSexual OrientationNot on file Last Filed Vital Signs Vital SignReadingTime TakenCommentsBlood Axvkercs972/6908/16/2025 3:20 PM EDT Oljpg52220/28/2025 3:20 PM XOURsjkisatmvc96.6 ??C (97.8 ??F)08/16/2025 3:20 PM EDTRespiratory Gurm0699 3:20 PM EDTOxygen Osuqvzxjsg35%08/16/2025 3:20 PM EDTInhaled Oxygen Concentration--Azxugx84 kg (141 lb 1.5 oz)08/16/2025 3:20 PM ZXGIsgzbe239.5 cm (5' 2 )06/28/2025 5:57 PM EDTBody Mass Index25.8106/28/2025 5:57 PM EDT Plan of Treatment DateTypeDepartmentCare Team (Latest Contact Info)Qofsyqioqps60/07/2025 4:00 PM ESTOffice Visit Otolaryngology [address] [address] Sherice Castrejon MD [address] [place] [address] follow upHealth MaintenanceDue DateLast DoneCommentsDiabetic Foot Exam2013 Dilated Retinal Exam2013Urine Albumin:Creatinine Ratio2013Peds To Adult Transition Initial Yghfwdlihq60/22/2015HPV Vaccine (2 - 2-dose series) Pneumococcal Vaccine (2 of 2 - PPSV23, PCV20, or PCV21) , 11/15/2009, 09/12/2004, Additional history existsPeds To Adult Transition Annual Achvunnccb45/22/2017Meningococcal B Vaccine (1 of 2 - Standard)2019Annual PCP Team Chronic Disease Visit1Anxiety Eggnzenbq99/22/2021hlamydia Screening (18-24)2021epression Screening 2021GC (Gonorrhea) Screening (18-24)2021HIV Zbltggeoq41/22/2021 Hepatitis C Qwipypetn44/22/2021ervical Cancer Bbycgdmvm92/22/2024DTaP,Tdap,Td Vaccine (7 - Td or Tdap)503/02/2015, 03/07/2008, 09/12/2004, Additional history existsCovid-19 Vaccine ( season)508/, 02/21/2021, 1LDL Dlslpdtqyca35/31/955050/2522FqH1L98/06/202606/28/2025, 01/24/2025, 11/19/2024, Additional history existsHepatitis B Vaccine Rdffbkcds96/30/2004, 06/18/2004, 2003, Additional history existsInfluenza EhzzeydZnubsdony25/24/2025, 08/14/2023, 08/15/2022, Additional history exists Procedures Procedure NamePriorityDate/TimeAssociated DiagnosisCommentsSPIROMETRY BASELINE QDJJCnnipfv09/28/2025 3:26 PM EDT ABPA (allergic bronchopulmonary aspergillosis) ([facility]) Cystic fibrosis with pulmonary manifestations ([facility]) BACTERIAL CULTURE, RESPIRATORY, CYSTIC BJBNYXEVEpxzhwg93/28/2025 3:00 PM EDT Cystic fibrosis ([facility]) FUNGAL CULTURE AND SMEAR (NON DERMAL)Awjphdk7808/16/2025 3:00 PM EDT Cystic fibrosis ([facility]) AFB CULTURE & STAIN FOR PATIENTS WITH CYSTIC ISSTPWEVSbemhba85/28/2025 3:00 PM EDT Cystic fibrosis ([facility] [place]) SPIROMETRY BASELINE REIOQgjbain74/23/2025 2:21 PM EDT MAGNESIUM BSVMnpmjso20/22/2025 6:10 AM EDT CBC + IHYRJwgvlal93/22/2025 6:10 AM EDT COMPREHENSIVE METABOLIC WINUQRqzvghm25/22/2025 6:10 AM EDT SPIROMETRY BASELINE CXZEJaumgfu93/17/2025 2:03 PM EDT MAGNESIUM CNKBnlnxee85/15/2025 6:27 AM EDT CBC + LUTRYlriyer22/15/2025 6:27 AM EDT COMPREHENSIVE METABOLIC FZMEBQkrczhk02/15/2025 6:27 AM EDT SPIROMETRY BASELINE FSANEqfogap66/10/2025 1:05 PM EDT MAGNESIUM QUDDvzskax27/09/2025 10:25 PM EDT CBC + OPXSAribnid22/09/2025 10:25 PM EDT COMPREHENSIVE METABOLIC NRLNTCkyzqre03/09/2025 10:25 PM EDT SEDIMENTATION KVNHIhajnlk04/09/2025 10:25 PM EDT C-REACTIVE PROTEIN (CRP)Oilaojf5106/28/2025 10:25 PM EDT VITAMIN D 25 UBOLQCJAjwloua88/09/2025 10:25 PM EDT HEMOGLOBIN L8TMuzvrxz25/09/2025 10:25 PM EDT IGE SEYAvwxvfu12/09/2025 10:25 PM EDT HCG MHUNYNLSWQFIHhxjbui29/09/2025 10:25 PM EDT EXPANDED RESPIRATORY PATHOGEN PANEL BY PCR, HGFHFDQAqafxtx66/09/2025 6:18 PM EDT ORGANISM IDENT. MOLD (LAB ORDER ONLY)Laxzhit1106/28/2025 5:59 PM EDT AFB CULTURE & STAIN FOR PATIENTS WITH CYSTIC MGLBIUBAOtgjcgq94/09/2025 5:59 PM EDT FUNGAL CULTURE (NON DERMAL)Qcimdym1006/28/2025 5:59 PM EDT BACTERIAL CULTURE, RESPIRATORY, CYSTIC PEAOXMVINilbfxf38/09/2025 5:59 PM EDT LIPID PANEL, JHIHVMVOxgvfkm88/31/2025 11:20 AM EST Cystic fibrosis (HCC) from Last 3 Months or Most Recently Relevant to Health Maintenance Results * SPIROMETRY BASELINE ONLY (08/16/2025 3:26 PM EDT)ComponentValueRef RangeTest MethodAnalysis TimePerformed AtPathologist SignatureFVC PRE (L)1.90LPULMONARY FUNCTION LABFVC PREDICTED (L)3.07LPULMONARY FUNCTION LABFVC LLN (L)2.38L PULMONARY FUNCTION LABFVC ULN (L)3.77LPULMONARY FUNCTION LABFEV1 PRE (L)1.39L PULMONARY FUNCTION LABFEV1 PREDICTED (L)2.74LPULMONARY FUNCTION LABFEV1 LLN (L)2.12LPULMONARY FUNCTION LABFEV1 ULN (L)3.33LPULMONARY FUNCTION LABFEV1/FVC PRE (%)73%PULMONARY FUNCTION LABFEV1/FVC PREDICTED (%)89%PULMONARY FUNCTION LABFEV1/FVC LLN (%)78%PULMONARY FUNCTION WUQOBK22% PRE (L/S)4.17L/SPULMONARY FUNCTION AMBVUV45% PRE (L/S00.23L/SPULMONARY FUNCTION TNERJN71% PREDICTED (L/S)1.66L/SPULMONARY FUNCTION ETOYVB72% LLN (L/S)0.93L/SPULMONARY FUNCTION DTILVR80% ULN (L/S)2.71L/SPULMONARY FUNCTION IDAQNK34-06% PRE (L/S)0.92L/S PULMONARY FUNCTION ZUFBWA81-72% PREDICTED (L/S)3.42L/SPULMONARY FUNCTION LAB AKS63-68% LLN (L/S)2.27L/SPULMONARY FUNCTION LABPEF PRE (L/S)5.39L/SPULMONARY FUNCTION LABPEF LLN (L/S)4.84L/SPULMONARY FUNCTION LABPEF ULN (L/S)7.92L/S PULMONARY FUNCTION LABFET PRE (S)7.58SPULMONARY FUNCTION LABSpecimen (Source) Anatomical Location / LateralityCollection Method / VolumeCollection Time Received Time08/16/2025 3:26 PM EDT Narrative PULMONARY FUNCTION LAB - 08/18/2025 10:42 AM EDT [facility] ?[address] ? [address] ? [place] [address] ? Test Date: ? 2025-08-16 Pat Name: ?LCUIE BOWEN ? Department: ?Room: ? Gender: ?Female ?Biometric Technician: ? : ? 2005 ?Requested By: ?? Order Number: ??[id number] ? Reading MD: ?Nyla Gold MD ? [...] 10:42:38 EDT by Nyla Gold MD ID: [id number] ?Name: LUCIE BOWEN ?Race: Other Ht: 60.71 in ?Wt: 141.10 lbs ?Age: 20 Gender: Female ?: 2005 ?Dx: Cystic Fibrosis - Unspecified. ??May include CFTR disorder. Smoking Hx: Non-smoker ?Doctor: HAILEE SEO Test Date: 08/16/2025 ?Site: ?Tech: Confer, Meri [...] ? 0.30 ?90-100 ? FIVC ?1.77 ? DNV41-69 ?0.92 ?? 2.27 ?? 3.42 ?? 4.72 ?26 ??-4.00 ? ExpiredTime ? 7.58 ? TimeToFEFMax ?0.08 ? GEREMIAS ? 0.06 ? VolExtrap% ? 3 ? Comments: Current ATS/ERS acceptability and repeatability standards for spirometry met. Start of test and EOFE criteria met. ?? //HC Authorizing ProviderResult TypeResult StatusColette Rayray TABOR.CNPSCHEDULED PROCEDURESFinal ResultPerforming OrganizationAddressCity/State/ZIP CodePhone Number [facility] [address] [place] [address] * (ABNORMAL) BACTERIAL CULTURE, RESPIRATORY, CYSTIC FIBROSIS (08/16/2025 3:00 PM EDT) Only the most recent of2 resultswithin the time period is included. ComponentValueRef RangeTest MethodAnalysis TimePerformed AtPathologist Signature Culture, Resp Cystic FibrosisRare Stenotrophomonas maltophilia(A) MINIMUM INHIBITORY CONCENTRATION (VIZION) 08/23/2025 7:41 AM [facility] LABCulture, Resp Cystic FibrosisFew normal respiratory herlinda(A) MINIMUM INHIBITORY CONCENTRATION (VIZION) 08/23/2025 7:41 AM [facility] LABCulture, Resp Cystic FibrosisRare Aspergillus species(A) MINIMUM INHIBITORY CONCENTRATION (VIZION) 08/23/2025 7:41 AM [facility] LABComment:Refer to specimen collected on 08/16/2025 1500 FUNGAL CULTURE AND SMEAR (NON DERMAL) [[id number]] for species identification.Specimen (Source)Anatomical Location / LateralityCollection Method / VolumeCollection TimeReceived Time SputumSPUTUM SPECIMEN / Lqvnxkw8108/16/2025 3:00 PM EDT1 7:57 PM EDT Narrative [facility] - 08/23/2025 7:41 AM EST No S. aureus, P. aeruginosa, or B. cepacia complex isolated. This test was developed and its performance characteristics determined by the [facility]'s [facility] JMar[facility]St[facility] Medicine [place] ([facility]). It has not been cleared or approved by the FDA. [facility] is regulated under CLIA as qualified to [...] StatusDouglas Geovanny MDMICROBIOLOGYFinal ResultPerforming OrganizationAddressCity/State/ZIP CodePhone Number [facility] [address] [place] [address], * SPIROMETRY BASELINE ONLY (07/12/2025 2:21 PM EDT)ComponentValueRef RangeTest MethodAnalysis TimePerformed AtPathologist SignatureFVC PRE (L)2.16LPULMONARY FUNCTION LABFVC PREDICTED (L)3.07LPULMONARY FUNCTION LABFVC LLN (L)2.38L PULMONARY FUNCTION LABFVC ULN (L)3.77LPULMONARY FUNCTION LABFEV1 PRE (L)1.61L PULMONARY FUNCTION LABFEV1 PREDICTED (L)2.74LPULMONARY FUNCTION LABFEV1 LLN (L)2.12LPULMONARY FUNCTION LABFEV1 ULN (L)3.33LPULMONARY FUNCTION LABFEV1/FVC PRE (%)74%PULMONARY FUNCTION LABFEV1/FVC PREDICTED (%)89%PULMONARY FUNCTION LABFEV1/FVC LLN (%)78%PULMONARY FUNCTION MBHWIX63% PRE (L/S)3.89L/SPULMONARY FUNCTION LFFQVY81% PRE (L/S00.31L/SPULMONARY FUNCTION THYTUP86% PREDICTED (L/S)1.67L/SPULMONARY FUNCTION KBIHAO76% LLN (L/S)0.93L/SPULMONARY FUNCTION BTGWHH52% ULN (L/S)2.71L/SPULMONARY FUNCTION FYMAVM21-57% PRE (L/S)1.15L/S PULMONARY FUNCTION WQGZPM17-83% PREDICTED (L/S)3.42L/SPULMONARY FUNCTION LAB OSV86-73% LLN (L/S)2.27L/SPULMONARY FUNCTION LABPEF PRE (L/S)5.85L/SPULMONARY FUNCTION LABPEF LLN (L/S)4.84L/SPULMONARY FUNCTION LABPEF ULN (L/S)7.92L/S PULMONARY FUNCTION LABFET PRE (S)8.37SPULMONARY FUNCTION LABSpecimen (Source) Anatomical Location / LateralityCollection Method / VolumeCollection Time Received Time07/12/2025 2:21 PM EDT Narrative PULMONARY FUNCTION LAB - 07/26/2025 12:22 PM EDT [facility] ?[address] ? [address] ? [place] [address] ? Test Date: ? 2025-07-12 Pat Name: ?LUCIE BOWEN ? Department: ?Room: ? Gender: ?Female ?Biometric Technician: ? : ? 2005 ?Requested By: ?? Order Number: ??[id number] ?Reading : ?Larry Guerra MD ? Interpretive Statements IP. ??Current ATS/ERS acceptability and repeatability standards for spirometry met. Start of test and EOFE criteria met. ??//HC IMPRESSION: Spirometry indicates obstruction. The severity of obstruction cannot be graded due to the reduced FVC. The reduced FVC may be due to obstruction, however, concomitant restriction cannot be excluded, recommend lung volumes for definitive determination. Electronically Signed On 07-26-2025 12:21:57 EDT by Larry Guerra MD ID: [id number] ?Name: LUCIE BOWEN ?Race: Other Ht: 60.71 in ?Wt: 135.36 lbs ?Age: 20 Gender: Female ?: 2005 ?Dx: Cystic Fibrosis - Unspecified. ??May include CFTR disorder. Smoking Hx: Non-smoker ?Doctor: Test Date: 07/12/2025 ?Site: ?Tech: Confer, Meri ?PRE-BRONCH ? POST-BRONCH ?Marcela ?LLN ?? Pred ?ULN %Pred ZScore ?? Marcela %Pred ??%Chg ZScore SPIROMETRY FVC ? 2.16 ?? 2.38 ?? 3.07 ?? 3.77 ?70 ??-2.17 ? FEV1 ?1.61 ?? 2.12 ?? 2.74 ?? 3.33 ?58 ??-2.93 ? FEV1/FVC ?0.74 ?? 0.78 ?? 0.89 ?? 0.98 ?83 ??-2.10 ? FEFMax ?5.85 ?? 4.84 ?? 6.38 ?? 7.92 ?91 ??-0.57 ? FEF50 ? 1.67 ?? 2.37 ?? 3.98 ?? 5.59 ?41 ??-2.37 ? FIF50 ? 5.66 ? FEF50/FIF50 ? 0.29 ?90-100 ? FIVC ?2.03 ? LNJ97-50 ?1.15 ?? 2.27 ?? 3.42 ?? 4.73 ?33 ??-3.55 ? ExpiredTime ? 8.37 ? TimeToFEFMax ?0.06 ? GEREMIAS ? 0.05 ? VolExtrap% ? 2 ? Comments: IP. ??Current ATS/ERS acceptability and repeatability standards for spirometry met. Start of test and EOFE criteria met. ??//HC Authorizing ProviderResult TypeResult StatusRonniisa Foster PA-CPULMONARYFinal ResultPerforming OrganizationAddressCity/State/ZIP CodePhone Number PULMONARY FUNCTION LAB [address] [facility] [place] [address] * MAGNESIUM (07/11/2025 6:10 AM EDT) Only the most recent of3 resultswithin the time period is included. ComponentValueRef RangeTest MethodAnalysis TimePerformed AtPathologist Signature Magnesium1.71.7 - 2.3 mg/dL07/11/2025 7:15 AM EDTCUNIV[facility] LABSpecimen (Source)Anatomical Location / LateralityCollection Method / Volume Collection TimeReceived TimeBloodBLOOD SPECIMEN / UnknownVenipuncture / Unknown 07/11/2025 6:10 AM EDT07/11/2025 6:18 AM EDT Narrative Authorizing ProviderResult TypeResult StatusAliescobar Freedman MDLABORATORYFinal ResultPerforming OrganizationAddressty/[facility]/ZIP CodePhone Number [facility] [address] [place] [address], * (ABNORMAL) COMPREHENSIVE METABOLIC PANEL (07/11/2025 6:10 AM EDT) Only the most recent of3 resultswithin the time period is included. ComponentValueRef RangeTest MethodAnalysis TimePerformed AtPathologist Signature Protein, Total6.0(L)6.3 - 8.0 g/dL07/11/2025 7:15 AM [facility] LABAlbumin3.0(L)3.9 - 4.9 g/dL07/11/2025 7:15 AM [facility] LABCalcium, Total8.58.5 - 10.2 mg/dL07/11/2025 7:15 AM [facility] LABBilirubin, Total0.60.2 - 1.3 mg/dL07/11/2025 7:15 AM EDT [facility] LABAlkaline Bwddfftbcbb3580 - 123 U/L07/11/2025 7:15 AM [facility] JWJPKU2141 - 35 U/L07/11/2025 7:15 AM [facility] QFLBMW825 - 38 U/L07/11/2025 7:15 AM EDT [facility] CLWFxavgbh829(H)74 - 99 mg/dL07/11/2025 7:15 AM EDT [facility] LABComment: The [place] [employer] (ADA) provides guidance for cutoff values for fasting glucose andrandom glucose. The ADA defines fasting as no caloric intake for at least 8 hours. Fasting plasma glucose results between 100 to 125 mg/dL indicate increased risk for diabetes (prediabetes). Fasting plasma glucose results greater than or equal to 126 mg/dL meet the criteria for diagnosis of diabetes. In the absence of unequivocal hyperglycemia, results should be confirmed by repeat testing. In a patient with classic symptoms of hyperglycemia or hyperglycemic crisis, random plasma glucose results greater than or equal to 200 mg/dL meet the criteria for diagnosis of diabetes. Reference: Standards of Medical Care in Diabetes 2016, [place] [employer]. Diabetes Care. 2016.39(Suppl 1). JNC945 - 21 mg/dL07/11/2025 7:15 AM [facility] LAB Creatinine0.640.58 - 0.96 mg/dL07/11/2025 7:15 AM [facility] QZWZuljpd720348 - 144 mmol/L07/11/2025 7:15 AM [facility] LABPotassium4.23.7 - 5.1 mmol/L07/11/2025 7:15 AM [facility] YZMOyvtoesu62646 - 107 mmol/L07/11/2025 7:15 AM [facility] IWUNK69672 - 30 mmol/L07/11/2025 7:15 AM [facility] LABAnion Nee754 - 15 mmol/L07/11/2025 7:15 AM [facility] LABEstimated Glomerular Filtration Ciqa545>=60 mL/min/1.73m 07/11/2025 7:15 AM [facility] LABComment:Estimated Glomerular Filtration Rate (eGFR) is calculated using the 2020 CKD-EPI creatinine equation. This equation utilizes serum creatinine, sex, and age as parameters. The creatinine assay has traceable calibration to isotope dilution- mass spectrometry. Refer to KDIGO guidelines for clinical interpretation. In patients with unstable renal function, e.g. those with acute kidney injury, the eGFRmay not accurately reflect actual GFR.Specimen (Source)Anatomical Location / LateralityCollection Method / VolumeCollection TimeReceived TimeBloodBLOOD SPECIMEN / UnknownVenipuncture / Rqtwhan4707/11/2025 6:10 AM EDT07/11/2025 6:18 AM EDT Narrative Authorizing ProviderResult TypeResult StatusAlice Jasmina HILLMANLABORATORYFinal ResultPerforming OrganizationAddressCity/State/ZIP CodePhone Number [facility] [address] [place] [address], * (ABNORMAL) COMPLETE BLOOD COUNT AND DIFFERENTIAL (07/11/2025 6:10 AM EDT) Only the most recent of3 resultswithin the time period is included. ComponentValueRef RangeTest MethodAnalysis TimePerformed AtPathologist Signature WBC7.673.70 - 11.00 k/uL07/11/2025 6:40 AM [facility] RBC4.733.90 - 5.20 m/uL5 6:40 AM EDTCSOU[facility] Urvvyyuhyt99.711.5 - 15.5 g/dL07/11/2025 6:40 AM EDTCSOU[facility] WHLNqhrargeeo29.036.0 - 46.0 %07/11/2025 6:40 AM [facility]TCUN[facility] SKDVBE16.580.0 - 100.0 fL07/11/2025 6:40 AM [facility] MCH26.826.0 - 34.0 pg07/11/2025 6:40 AM EDTCSOU[facility] LABMCHC 32.630.5 - 36.0 g/dL07/11/2025 6:40 AM EDTCUNIV[facility] LABRDW-CV 14.511.5 - 15.0 %07/11/2025 6:40 AM EDTCUNIV[facility] LABPlatelet Agept965583 - 400 k/07/11/2025 6:40 AM [facility]TC[facility] LABMPV 10.19.0 - 12.7 [place]07/11/2025 6:40 AM [facility]TC[facility] Neutrophils %45.9%07/11/2025 6:40 AM EDTCSOU[facility] LABAbs Neut 3.531.45 - 7.50 k/07/11/2025 6:40 AM EDTCSELECT [facility] Lymphocytes %35.3%07/11/2025 6:40 AM EDTCSOU[facility] LABAbs Lymph2.711.00 - 4.00 k/07/11/2025 6:40 AM EDTCSOU[facility] LAB Monocytes %14.1%07/11/2025 6:40 AM EDTCSOU[facility] LABAbs [place] 1.08(H)<0.87 k/07/11/2025 6:40 AM EDTCSOU[facility] LAB Eosinophils %3.7%07/11/2025 6:40 AM EDTCSOU[facility] LABAbs Eosin 0.28<0.46 k/07/11/2025 6:40 AM EDTCSOU[facility] LABBasophils % 0.7%07/11/2025 6:40 AM EDTCUN[facility] LABAbs Baso0.05<0.11 k/uL 07/11/2025 6:40 AM [facility] LABImmature Granulocytes %0.3 %07/11/2025 6:40 AM [facility]DS[facility] LABAbs Immature Gran<0.03 <0.10 k/uL07/11/2025 6:40 AM [facility]DSAMARITAN [facility] LABNRBC0.0/100 WBC 07/11/2025 6:40 AM [facility] LABAbsolute nRBC<0.01<0.01 k/uL07/11/2025 6:40 AM [facility] LABDiff TypeAuto 07/11/2025 6:40 AM [facility] LABSpecimen (Source) Anatomical Location / LateralityCollection Method / VolumeCollection Time Received TimeBloodBLOOD SPECIMEN / UnknownVenipuncture / Veqtmkm4307/11/2025 6:10 AM EDT07/11/2025 6:18 AM EDT Narrative Authorizing ProviderResult TypeResult StatusAlice Jasmina HILLMANLABORATORYFinal ResultPerforming OrganizationAddressCity/State/ZIP CodePhone Number [facility] [address] [place] [address], * SPIROMETRY BASELINE ONLY (07/06/2025 2:03 PM EDT)ComponentValueRef RangeTest MethodAnalysis TimePerformed AtPathologist SignatureFVC PRE (L)1.98LPULMONARY FUNCTION LABFVC PREDICTED (L)3.07LPULMONARY FUNCTION LABFVC LLN (L)2.38L PULMONARY FUNCTION LABFVC ULN (L)3.77LPULMONARY FUNCTION LABFEV1 PRE (L)1.49L PULMONARY FUNCTION LABFEV1 PREDICTED (L)2.74LPULMONARY FUNCTION LABFEV1 LLN (L)2.12LPULMONARY FUNCTION LABFEV1 ULN (L)3.33LPULMONARY FUNCTION LABFEV1/FVC PRE (%)75%PULMONARY FUNCTION LABFEV1/FVC PREDICTED (%)89%PULMONARY FUNCTION LABFEV1/FVC LLN (%)78%PULMONARY FUNCTION LQIRTS11% PRE (L/S)4.60L/SPULMONARY FUNCTION PNJRGR37% PRE (L/S00.31L/SPULMONARY FUNCTION GFPNGH92% PREDICTED (L/S)1.67L/SPULMONARY FUNCTION EKIHRN75% LLN (L/S)0.93L/SPULMONARY FUNCTION HDSYQY35% ULN (L/S)2.71L/SPULMONARY FUNCTION SGIGRS77-79% PRE (L/S)1.12L/S PULMONARY FUNCTION CPYECL69-56% PREDICTED (L/S)3.42L/SPULMONARY FUNCTION LAB RLM55-85% LLN (L/S)2.27L/SPULMONARY FUNCTION LABPEF PRE (L/S)6.07L/SPULMONARY FUNCTION LABPEF LLN (L/S)4.84L/SPULMONARY FUNCTION LABPEF ULN (L/S)7.92L/S PULMONARY FUNCTION LABFET PRE (S)7.29SPULMONARY FUNCTION LABSpecimen (Source) Anatomical Location / LateralityCollection Method / VolumeCollection Time Received Time07/06/2025 2:03 PM EDT Narrative PULMONARY FUNCTION LAB - 07/13/2025 3:24 PM EDT [facility] ?[address] ? [address] ? [place] [address] ? Test Date: ? 2025-07-06 Pat Name: ?LUCIE BOWEN ? Department: ?Room: ? Gender: ?Female ?Biometric Technician: ? : ? 2005 ?Requested By: ?? Order Number: ??[id number] ?Reading MD: ?Jorge Caruso MD ? Interpretive Statements IP. ??ATS/ERS acceptability and repeatability standards for spirometry met. Start of test and EOFE criteria met. ??//HC IMPRESSION: Spirometry indicates obstruction. The severity of obstruction cannot be graded due to the reduced FVC. The reduced FVC may be due to obstruction, however, concomitant restriction cannot be excluded, recommend lung volumes for definitive determination. Electronically Signed On 07-13-2025 15:24:22 EDT by Jorge Caruso MD ID: [id number] ?Name: LUCIE BOWEN ?Race: Other Ht: 60.71 in ?Wt: 135.36 lbs ?Age: 20 Gender: Female ?: 2005 ?Dx: Cystic Fibrosis - Unspecified. ??May include CFTR disorder. Smoking Hx: Non-smoker ?Doctor: Test Date: 07/06/2025 ?Site: ?Tech: Confer, Meri ?PRE-BRONCH ? POST-BRONCH ?Marcela ?LLN ?? Pred ?ULN %Pred ZScore ?? Marcela %Pred ??%Chg ZScore SPIROMETRY FVC ? 1.98 ?? 2.38 ?? 3.07 ?? 3.77 ?64 ??-2.62 ? FEV1 ?1.49 ?? 2.12 ?? 2.74 ?? 3.33 ?54 ??-3.21 ? FEV1/FVC ?0.75 ?? 0.78 ?? 0.89 ?? 0.98 ?84 ??-1.99 ? FEFMax ?6.07 ?? 4.84 ?? 6.38 ?? 7.92 ?95 ??-0.33 ? FEF50 ? 1.66 ?? 2.37 ?? 3.98 ?? 5.59 ?41 ??-2.38 ? FIF50 ? 5.08 ? FEF50/FIF50 ? 0.33 ?90-100 ? FIVC ?1.89 ? WJZ89-95 ?1.12 ?? 2.27 ?? 3.42 ?? 4.73 ?32 ??-3.59 ? ExpiredTime ? 7.29 ? TimeToFEFMax ?0.08 ? GEREMIAS ? 0.07 ? VolExtrap% ? 4 ? Comments: IP. ??ATS/ERS acceptability and repeatability standards for spirometry met. Start of test and EOFE criteria met. ??//HC Authorizing ProviderResult TypeResult StatusRonnie Cristian PA-CPULMONARYFinal ResultPerforming OrganizationAddressCity/State/ZIP CodePhone Number [facility]CTION LAB [address] [place] [address] * SPIROMETRY BASELINE ONLY (06/29/2025 1:05 PM EDT)ComponentValueRef RangeTest MethodAnalysis TimePerformed AtPathologist SignatureFVC PRE (L)1.95LPULMONARY FUNCTION LABFVC PREDICTED (L)3.07LPULMONARY FUNCTION LABFVC LLN (L)2.38L PULMONARY FUNCTION LABFVC ULN (L)3.77LPULMONARY FUNCTION LABFEV1 PRE (L)1.47L PULMONARY FUNCTION LABFEV1 PREDICTED (L)2.74LPULMONARY FUNCTION LABFEV1 LLN (L)2.12LPULMONARY FUNCTION LABFEV1 ULN (L)3.33LPULMONARY FUNCTION LABFEV1/FVC PRE (%)75%PULMONARY FUNCTION LABFEV1/FVC PREDICTED (%)89%PULMONARY FUNCTION LABFEV1/FVC LLN (%)78%PULMONARY FUNCTION PSKQBW20% PRE (L/S)4.43L/SPULMONARY FUNCTION TJJCQE58% PRE (L/S00.33L/SPULMONARY FUNCTION AMDWQP26% PREDICTED (L/S)1.67L/SPULMONARY FUNCTION NIPXEO71% LLN (L/S)0.93L/SPULMONARY FUNCTION BMVCZH11% ULN (L/S)2.71L/SPULMONARY FUNCTION NVTRVV64-99% PRE (L/S)1.21L/S PULMONARY FUNCTION YFDWQT09-73% PREDICTED (L/S)3.42L/SPULMONARY FUNCTION LAB YYO29-37% LLN (L/S)2.27L/SPULMONARY FUNCTION LABPEF PRE (L/S)5.68L/SPULMONARY FUNCTION LABPEF LLN (L/S)4.84L/SPULMONARY FUNCTION LABPEF ULN (L/S)7.92L/S PULMONARY FUNCTION LABFET PRE (S)8.51SPULMONARY FUNCTION LABSpecimen (Source) Anatomical Location / LateralityCollection Method / VolumeCollection Time Received Time06/29/2025 1:05 PM EDT Narrative PULMONARY FUNCTION LAB - 07/06/2025 12:34 PM EDT [facility] ?[address] ? [address] ? [place] [address] ? Test Date: ? 2025-06-29 Pat Name: ?LUCIE BOWEN ? Department: ?Room: ? Gender: ?Female ?Biometric Technician: ? : ? 2005 ?Requested By: ?? Order Number: ??[id number] ?Reading MD: ?Jorge Caruso MD ? Interpretive Statements Current ATS/ERS acceptability and repeatability standards for spirometry met. Start of test and EOFE criteria met. ?? //HC IMPRESSION: Spirometry indicates obstruction. The severity of obstruction cannot be graded due to the reduced FVC. The reduced FVC may be due to obstruction, however, concomitant restriction cannot be excluded, recommend lung volumes for definitive determination. Electronically Signed On 07-06-2025 12:34:54 EDT by Jorge Caruso MD ID: [id number] ?Name: LUCIE BOWEN ?Race: Other Ht: 60.71 in ?Wt: 145.28 lbs ?Age: 20 Gender: Female ?: 2005 ?Dx: Cystic Fibrosis - Unspecified. ??May include CFTR disorder. Smoking Hx: Non-smoker ?Doctor: Test Date: 06/29/2025 ?Site: [facility] ?Tech: Confer, Meri ?PRE-BRONCH ? POST-BRONCH ?Marcela ?LLN ?? Pred ?ULN %Pred ZScore ?? Marcela %Pred ??%Chg ZScore SPIROMETRY FVC ? 1.95 ?? 2.38 ?? 3.07 ?? 3.77 ?63 ??-2.69 ? FEV1 ?1.47 ?? 2.12 ?? 2.74 ?? 3.33 ?53 ??-3.26 ? FEV1/FVC ?0.75 ?? 0.78 ?? 0.89 ?? 0.98 ?84 ??-1.98 ? FEFMax ?5.68 ?? 4.84 ?? 6.38 ?? 7.92 ?88 ??-0.75 ? FEF50 ? 1.67 ?? 2.38 ?? 3.98 ?? 5.59 ?41 ??-2.37 ? FIF50 ? 5.18 ? FEF50/FIF50 ? 0.32 ?90-100 ? FIVC ?1.97 ? ZNW70-95 ?1.21 ?? 2.27 ?? 3.42 ?? 4.73 ?35 ??-3.44 ? ExpiredTime ? 8.51 ? TimeToFEFMax ?0.07 ? GEREMIAS ? 0.05 ? VolExtrap% ? 3 ? Comments: Current ATS/ERS acceptability and repeatability standards for spirometry met. Start of test and EOFE criteria met. ?? //HC Authorizing ProviderResult TypeResult StatusColette Rayray REYESN.CNPPULMONARYFinal ResultPerforming OrganizationAddressCity/State/ZIP CodePhone Number [facility] [address] [facility] [place] [address] * VITAMIN D 25 HYDROXY (06/28/2025 10:25 PM EDT)ComponentValueRef RangeTest MethodAnalysis TimePerformed AtPathologist SignatureVitamin D 25 Lijjpgq90.0 31.0 - 80.0 ng/mL06/29/2025 2:24 PM EDTCUN[facility] Comment: Classification of 25 [place] Vitamin D status: Deficiency/Insufficiency: < or = 30 ng/ml. Sufficiency/Optimal Levels: 31-80 ng/mL Toxicity: > 100 ng/mL. Test performed by chemiluminescent immunoassay. Specimen (Source)Anatomical Location / LateralityCollection Method / Volume Collection TimeReceived TimeBloodBLOOD SPECIMEN / UnknownVenipuncture / Unknown 06/28/2025 10:25 PM EDT06/29/2025 12:50 AM EDT Narrative [facility] - 06/29/2025 2:24 PM EDT The reference range interval was based on an analysis of samples from healthy adults and may not pertain to children from 0-18 years old. Authorizing ProviderResult TypeResult StatusAlice Jasmina MDLABORATORYFinal ResultPerforming OrganizationAddressty/[facility] CodePhone Number [facility] [address] [place] [address], * SEDIMENTATION RATE, WESTERGREN (06/28/2025 10:25 PM EDT)ComponentValueRef RangeTest MethodAnalysis TimePerformed AtPathologist SignatureSed Rate, [id number] - 20 mm/hr06/29/2025 2:45 AM [facility] Specimen (Source)Anatomical Location / LateralityCollection Method / Volume Collection TimeReceived TimeBloodBLOOD SPECIMEN / UnknownVenipuncture / Awvtpcf3106/28/2025 10:25 PM EDT06/29/2025 12:50 AM EDT Narrative Authorizing ProviderResult TypeResult StatusSoraya Freedman MDLABORATORYFinal ResultPerforming OrganizationAddressCity/State/ZIP CodePhone Number [facility] [address] [place] [phone], * (ABNORMAL) IMMUNOGLOBULIN E (06/28/2025 10:25 PM EDT)ComponentValueRef Range Test MethodAnalysis TimePerformed AtPathologist QyhkogxgjGrZ847.0(H)<114.0 kU/l06/29/2025 10:18 PM [facility]DSAMAR[facility]AN [facility] LABSpecimen (Source) Anatomical Location / LateralityCollection Method / VolumeCollection Time Received TimeBloodBLOOD SPECIMEN / UnknownVenipuncture / Ffujdhc0706/28/2025 10:25 PM EDT06/29/2025 12:50 AM EDT Narrative Authorizing ProviderResult TypeResult StatusSoraya Freedman MDLABORATORYFinal ResultPerforming OrganizationAddressty/State/ZIP CodePhone Number [facility] [address] [address], [place] * (ABNORMAL) HEMOGLOBIN A1C (06/28/2025 10:25 PM EDT)ComponentValueRef RangeTest MethodAnalysis TimePerformed AtPathologist SignatureHemoglobin A1C6.0(H)4.3 - 5.6 %06/29/2025 9:02 AM [facility] LABComment:[place] [employer] guidelines indicate that patients with HgbA1c in the range 5.7-6.4% are at increased risk for development of diabetes, and intervention by lifestyle modification may be beneficial. HgbA1c greater or equal to 6.5% is considered diagnostic of diabetes.Estimated Average Glucose 126mg/dL06/29/2025 9:02 AM [facility] LABComment:eAG: (Estimated average glucose) is a calculated value from HgbA1c and is field representative of the average blood glucose level in the last 2-3 month period.Specimen (Source)Anatomical Location / LateralityCollection Method / VolumeCollection TimeReceived TimeBloodBLOOD SPECIMEN / UnknownVenipuncture / Nulorhm6406/28/2025 10:25 PM EDT06/29/2025 12:50 AM EDT Narrative Authorizing ProviderResult TypeResult StatusSoraya Freedman MDLABORATORYFinal ResultPerforming OrganizationAddressCity/State/ZIP CodePhone Number [facility] [address] [place] [address], * HCG QUANTITATIVE (06/28/2025 10:25 PM EDT)ComponentValueRef RangeTest Method Analysis TimePerformed AtPathologist SignaturehCG Quantitative, Blood<0.6<5.0 mIU/mL06/29/2025 4:57 AM [facility] LABComment:Negative Specimen (Source)Anatomical Location / LateralityCollection Method / Volume Collection TimeReceived TimeBloodBLOOD SPECIMEN / UnknownVenipuncture / Nighhfe2406/28/2025 10:25 PM EDT06/29/2025 12:50 AM EDT Narrative Authorizing ProviderResult TypeResult StatusSoraya Freedman MDLABORATORYFinal ResultPerforming OrganizationAddressty/State/ZIP CodePhone Number [facility] [address] [place] [address], * (ABNORMAL) C-REACTIVE PROTEIN (06/28/2025 10:25 PM EDT)ComponentValueRef Range Test MethodAnalysis TimePerformed AtPathologist SignatureCRP3.6(H)<0.9 mg/dL 06/29/2025 2:52 AM [facility] LABSpecimen (Source) Anatomical Location / LateralityCollection Method / VolumeCollection Time Received TimeBloodBLOOD SPECIMEN / UnknownVenipuncture / Ehiaqlc0606/28/2025 10:25 PM EDT06/29/2025 12:50 AM EDT Narrative Authorizing ProviderResult TypeResult StatusAlice Goyanes MDLABORATORYFinal ResultPerforming OrganizationAddressCity/State/ZIP CodePhone Number [facility] [address] [facility] [address], * EXPANDED RESPIRATORY PATHOGEN PANEL BY PCR, ROUTINE (06/28/2025 6:18 PM EDT) ComponentValueRef RangeTest MethodAnalysis TimePerformed AtPathologist SmscxujwlMHHC-WpG-1 (Agent of COVID-19) RNANot detectedSee bbkslji6306/28/2025 9:56 PM EDTCUN[facility] LABInfluenza A RNANot detectedNot /09/2025 9:56 PM EDTCSOU[facility] LABInfluenza B RNA Not detectedNot jcjtuzuc97/09/2025 9:56 PM EDTCUN[facility] Respiratory syncytial virus (RSV) RNANot detectedNot slaumxwn42/09/2025 9:56 PM EDTCUN[facility] LABHuman metapneumovirus (hMPV) RNANot detectedNot chzqiwzb79/09/2025 9:56 PM EDTCUN[facility] Human rhinovirus/enterovirus RNANot detectedNot ufegfqqn16/09/2025 9:56 PM EDT [facility] LABAdenovirus DNANot detectedNot detected 06/28/2025 9:56 PM EDTCUN[facility] LABParainfluenza 1 RNANot detectedNot lyywoajn05/09/2025 9:56 PM EDTCUN[facility] Parainfluenza 2 RNANot detectedNot ddlmafdb42/09/2025 9:56 PM EDTCUN[facility] LABParainfluenza 3 RNANot detectedNot xqwqwrob56/09/2025 9:56 PM EDTCSOU[facility] LABParainfluenza 4 RNANot detectedNot tccesenz36/09/2025 9:56 PM EDTCUN[facility] LABCoronavirus 229E RNANot detectedNot qykeeggv12/09/2025 9:56 PM EDTCUN[facility] LABCoronavirus OC43 RNANot detectedNot avauqgkn88/09/2025 9:56 PM EDTCUN[facility] LABCoronavirus NL63 RNANot detectedNot hlwuvxrs70/09/2025 9:56 PM EDTCSOU[facility] LABCoronavirus HKU1 RNANot detectedNot lxkitwxo62/09/2025 9:56 PM EDTCSOU[facility] LABChlamydia pneumoniae DNANot detectedNot /09/2025 9:56 PM EDTCUN[facility] LABMycoplasma pneumoniae DNANot detectedNot oqnhyesj30/09/2025 9:56 PM EDTCUN[facility] LABBordetella pertussis DNANot detectedNot /09/2025 9:56 PM EDTCUN[facility] LAB Bordetella parapertussis DNANot detectedNot qoyhzwow01/09/2025 9:56 PM EDT [facility] LABSpecimen (Source)Anatomical Location / LateralityCollection Method / VolumeCollection TimeReceived TimeSwab NASOPHARYNGEAL SWAB / UnknownNon Blood / Kqrfqnt5006/28/2025 6:18 PM EDT 06/28/2025 6:24 PM EDT Narrative [facility] - 06/28/2025 9:56 PM EDT Reference Range (the expected result in uninfected individuals): Not detected Authorizing ProviderResult TypeResult StatusAlice Jasmina MDMICROBIOLOGYFinal ResultPerforming OrganizationAddressCity/State/ZIP CodePhone Number [facility] [address] [facility] [address] [place] [address], [place] * AFB CULTURE & STAIN FOR PATIENTS WITH CYSTIC FIBROSIS (06/28/2025 5:59 PM EDT) ComponentValueRef RangeTest MethodAnalysis TimePerformed AtPathologist SignatureCulture, AFBNo Acid Fast Bacilli isolated after 42 days08/10/2025 8:04 AM [facility]TC[facility] LABAFB StainNo acid fast bacilli seen by fluorochrome stain08/10/2025 8:04 AM [facility]DE[facility] LABSpecimen (Source)Anatomical Location / LateralityCollection Method / VolumeCollection TimeReceived TimeSputumSPUTUM SPECIMEN / UnknownNon Blood / Lbfeejd7306/28/2025 5:59 PM EDT06/28/2025 6:10 PM EDT Narrative Authorizing ProviderResult TypeResult StatusAlice Jasmina MDMICROBIOLOGYFinal ResultPerforming OrganizationAddressCity/State/ZIP CodePhone Number [facility] [address] [place] [address], * (ABNORMAL) ORGANISM IDENT. MOLD (LAB ORDER ONLY) (06/28/2025 5:59 PM EDT) ComponentValueRef RangeTest MethodAnalysis TimePerformed AtPathologist SignatureCulture, Organism ID MoldAspergillus fumigatus(A)07/06/2025 2:53 PM EDSAMARITAN HOSPITAL LABComment: By MALDI TOF Mass Spectrometry. Specimen (Source)Anatomical Location / LateralityCollection Method / Volume Collection TimeReceived TimeSputumSPUTUM SPECIMEN / UnknownNon Blood / Unknown 06/28/2025 5:59 PM EDT06/28/2025 6:10 PM EDT Narrative Authorizing ProviderResult TypeResult StatusDaninehemias Perez MDMICROBIOLOGYFinal ResultPerforming OrganizationAddressCity/State/ZIP CodePhone Number [facility] [address] [facility] [address] [place] [address], * (ABNORMAL) FUNGAL CULTURE (NON DERMAL) (06/28/2025 5:59 PM EDT)ComponentValue Ref RangeTest MethodAnalysis TimePerformed AtPathologist SignatureCulture, FungalFew Brenna albicans(A) MINIMUM INHIBITORY CONCENTRATION(VITEK) 07/28/2025 8:43 AM EDSAM[facility]ITAN HOS[facility]ITAL LABCulture, FungalOne colony Aspergillus fumigatus(A) MINIMUM INHIBITORY CONCENTRATION(VITEK) 07/28/2025 8:43 AM [facility] LABComment:Mold isolated. Refer to Organism Identification, Mold culture, for species identification. Specimen (Source)Anatomical Location / LateralityCollection Method / Volume Collection TimeReceived TimeSputumSPUTUM SPECIMEN / UnknownNon Blood / Unknown 06/28/2025 5:59 PM EDT06/28/2025 6:10 PM EDT Narrative [facility] - 07/28/2025 8:43 AM EDT This test was developed and its performance characteristics determined by the [facility] [place] ([facility]). It has not been cleared or approved by the FDA. RT-[facility]NV is regulated under CLIA as qualified to perform high-complexity testing. This test is used for clinical purposes. It should not be regarded as investigational or for research. Authorizing ProviderResult TypeResult StatusAlice Jasmina MDMICROBIOLOGYFinal ResultPerforming OrganizationAddressCity/State/ZIP CodePhone Number [facility] [address] [facility] [address] [place] [address], * LIPID PANEL BASIC (11/19/2024 11:20 AM EST)ComponentValueRef RangeTest Method Analysis TimePerformed AtPathologist SignatureCholesterol, Wuljj148<200 mg/dL 11/19/2024 1:16 PM EST[facility] LABComment: <200 mg/dL, Desirable 200-239 mg/dL, Borderline high >239 mg/dL, High Mpjwclthyrpa788<150 mg/dL11/19/2024 1:16 PM ESTC[facility] LABComment: <150 mg/dL, Normal 150-199 mg/dL, Borderline high 200-499 mg/dL, High >499 mg/dL, Very high HDL Cwvbkspzkni62>39 mg/dL11/19/2024 1:16 PM EST[facility] Comment: 40-59 mg/dL, Acceptable >59 mg/dL, High: Negative risk factor for coronary heart disease <40 mg/dL, Low: Positive risk factor for coronary heart disease Non HDL Jfqnhjblbsn67<130 mg/dL11/19/2024 1:16 PM EST[facility] Comment: <130 mg/dL, Optimal 130-159 mg/dL, Near optimal/above optimal 160-189 mg/dL, Borderline high 190-219 mg/dL, High >219 mg/dL, Very high Secondary prevention optimal non HDL Cholesterol levels are recommended to be <100 mg/dL Fasting Csgi3jgw54/31/2025 1:16 PM ESTC[facility] LABVLDL Cholesterol 23<30 mg/dL11/19/2024 1:16 PM ESTC[facility] LABTC:HDL Ratio2.40<5.10 11/19/2024 1:16 PM EST[facility] LABLDL Cholesterol, Qdokdeukjk46<100 mg/dL11/19/2024 1:16 PM EST[facility] LABComment: <100 mg/dL, Optimal 100-129 mg/dL, Near optimal/above optimal 130-159 mg/dL, Borderline high 160-189 mg/dL, High >189 mg/dL, Very high Secondary prevention optimal LDL Cholesterol levels are recommended to be < 70 mg/dL LDL:HDL Ratio0.89<2.54011/19/2024 1:16 PM ESTCANC[facility] LABComment: Reference: 1. National Cholesterol Education Program ATP III Guideline At-A-Glance Quick Desk Reference: National Heart, Lung, and Blood [place]. National Institutes of Health. 2001: NIH Publication No. 01-3305. 2. An International Atherosclerosis Society position paper: global recommendations for the management of dyslipidemia: executive summary, Atherosclerosis. 2014: 232(2):410-413. Cut Points from the Lipid Research Clinic's Prevalence Study for ages 20 to 24 years can be locatedin the following reference: Expert Panel on Integrated Guidelines for Cardiovascular Health and Risk Reduction in Children and Adolescents: National Heart, Lung and Blood [place]. Pediatrics. 2011:1 28(Suppl 5):Q405-809. ?? Specimen (Source)Anatomical Location / LateralityCollection Method / Volume Collection TimeReceived TimeBloodBLOOD SPECIMEN / UnknownVenipuncture / Unknown 11/19/2024 11:20 AM EST11/19/2024 12:12 PM EST Narrative Authorizing ProviderResult TypeResult StatusColette Bucur MACHINE CLOTH EXAMINER.CNPLABORATORY Final ResultPerforming OrganizationAddressCity/State/ZIP CodePhone Number [facility] [address] [place] [address], from Last 3 Months or Most Recently Relevant to Health Maintenance Insurance Advance Directives * Full Code (Latest Code Status on File) Date ActivatedDate InactivatedComments06/28/2025 10:13 PM07/13/2025 7:36 PMQuestion AnswerCommentsFull Code Order Discussed With:* Patient * Full Code Date ActivatedDate InactivatedComments01/23/2025 7:20 PM02/16/2025 7:34 PMQuestion AnswerCommentsFull Code Order Discussed With:* Patient * Full Code Date ActivatedDate NjrszwuyqgaKdkphgkx57/13/2024 11:25 PM10/23/2024 4:13 AM QuestionAnswerCommentsFull Code Order Discussed With:* Patient Care Teams Team MemberRelationshipSpecialtyStart DateEnd Date Facundo Nina MD [address] [place] [address] PCP - GeneralPulmonary and Critical Care Medicine06/03/24
--- OUTSIDE RECORDS SUMMARY | 2025-08-25 16:56 | XMS_ITS | Encounter Summary ---
Author Organization [facility] Address [address] [place] [address] Care Team Providers Care Dealership Manager Name Role Phone Facundo Nina MD Primary Care Provider [phone] Source Comments In the event this information is protected by the Federal Confidentiality of Alcohol and Drug AbusePatient Records regulations: The Federal rules restrict any use of the information to criminally investigate or prosecute any alcohol or drug abuse patient.[facility] Encounter Details DateTypeDepartmentCare Team (Latest Contact Info)Xtrdsqutkvb31/28/2025Travel Social History Tobacco UseTypesPacks/DayYears UsedDateSmoking Tobacco: NeverPassive [...] place to sleep or slept in a senior care (including now)?No06/04/2024Housing Stability Vital SignAnswerDate RecordedIn the last 12 months, was there a time when you were not able to pay the mortgage or rent on time?No05/20/2025In the past 12 months, how many times have you moved where you were living?t any time in the past 12 months, were you homeless or living in a senior care (including now)?No05/20/2025 Hunger Vital SignAnswerDate RecordedWithin the [...] Moved in the Last Year Not on file06/29/2025 any time in the past 12 months, were you homeless or living in a senior care (including now)?06/29/2025HC UtilitiesAnswerDate Recorded In the past 12 months has the [employer], gas, oil, or water [employer] threatened to shut off services in your home?No06/29/2025rea Deprivation IndexAnswerDate RecordedNational Score (1-100), lower number is lower ujhz955007/27/2025State Score (1-10), lower number is lower [id number] from: https://www.neighborhoodatlas.medicine.[facility].edu/. Last address used for rrxyjy[address]sp[address]07/27/2025CommentsUnknownSex and Gender InformationValueDate RecordedSex Assigned at BirthNot on fileLegal SexFemale 09/03/2022 2:34 PM ESTGender IdentityNot on fileSexual OrientationNot on file documented as of this encounter Functional Status * Are you deaf or do you have serious difficulty hearing?AnswerDate of WmuzhdobgvKezrkgBu64/30/2025 12:58 PM Rosario Mccullough RN * Are you blind or do you have serious difficulty seeing, even when wearing glasses?AnswerDate of JaxwaboztyLhfmxrJj00/30/2025 12:58 PM Rosario Mccullough RN * Do you have serious difficulty walking or climbing stairs?AnswerDate of BbyzvqglktLdjxhaHo61/30/2025 12:58 PM Rosario Mccullough RN * Do you have difficulty dressing or bathing?AnswerDate of AssessmentAuthorNo 02/16/2025 12:58 PM Rosario Mccullough RN * Because of a physical, mental, or emotional condition, do you have difficulty doing errands alone such as visiting a doctor's office or shopping?AnswerDate of YueheedetrGnekgnPh26/30/2025 12:58 PM Rosario Mccullough RN documented as of this encounter Mental Status * Because of a physical, mental, or emotional condition, do you have serious difficulty concentrating, remembering, or making decisions?AnswerEntry Date JcaintOz42/30/2025 12:58 PM Rosario Mccullough RN documented in this encounter Plan of Treatment DateTypeDepartmentCare Team (Latest Contact Info)Zehviuhupko44/07/2025 4:00 PM ESTOffice Visit Otolaryngology [address] [place] [address] Sherice Castrejon MD [address] [place] [address] follow updocumented as of this encounter Visit Diagnoses Not on filedocumented in this encounter Care Teams Team MemberRelationshipSpecialtyStart DateEnd Facundo Nina MD [address] [address] PCP - GeneralPulmonary and Critical Care Medicine06/03/24documented as of this encounter
--- OUTSIDE RECORDS SUMMARY | 2025-08-25 16:56 | XMS_ITS | Encounter Summary ---
Author Organization [facility] Address [address] [place] [address] Care Team Providers Care Lead Supply Worker Name Role Phone Facundo Nina MD Primary Care Provider [phone] Source Comments In the event this information is protected by the Federal Confidentiality of Alcohol and Drug AbusePatient Records regulations: The Federal rules restrict any use of the information to criminally investigate or prosecute any alcohol or drug abuse patient.[facility] Encounter Details DateTypeDepartmentCare Team (Latest Contact Info)Mqhemqixueh41/29/2025Travel Social History Tobacco UseTypesPacks/DayYears UsedDateSmoking Tobacco: NeverPassive [...] place to sleep or slept in a jail (including now)?No06/04/2024Housing Stability Vital SignAnswerDate RecordedIn the last 12 months, was there a time when you were not able to pay the mortgage or rent on time?No05/20/2025In the past 12 months, how many times have you moved where you were living?t any time in the past 12 months, were you homeless or living in a jail (including now)?No05/20/2025 Hunger Vital SignAnswerDate RecordedWithin the [...] were you homeless or living in a jail (including now)?06/29/2025HC UtilitiesAnswerDate Recorded In the past 12 months has the [employer], gas, oil, or water [employer] threatened to shut off services in your home?No06/29/2025rea Deprivation IndexAnswerDate RecordedNational Score (1-100), lower number is lower vthb122907/27/2025State Score (1-10), lower number is lower [id number] from: https://www.neighborhoodatlas.medicine.[facility].edu/. Last address used for fnhixatxrs[address]07/27/2025CommentsUnknownSex and Gender InformationValueDate RecordedSex Assigned at BirthNot on fileLegal SexFemale 09/03/2022 2:34 PM ESTGender IdentityNot on fileSexual OrientationNot on file documented as of this encounter Functional Status * Are you deaf or do you have serious difficulty hearing?AnswerDate of KsbqqlkoylMljwqsTf98/30/2025 12:58 PM Rosario Mccullough RN * Are you blind or do you have serious difficulty seeing, even when wearing glasses?AnswerDate of WdhwvfskqrOdfrjpUl13/30/2025 12:58 PM Rosario Mccullough RN * Do you have serious difficulty walking or climbing stairs?AnswerDate of GegxkvzazpRyzuijHk95/30/2025 12:58 PM Rosario Mccullough RN * Do you have difficulty dressing or bathing?AnswerDate of AssessmentAuthorNo 02/16/2025 12:58 PM Rosario Mccullough RN * Because of a physical, mental, or emotional condition, do you have difficulty doing errands alone such as visiting a doctor's office or shopping?AnswerDate of AmhgpwdifoVlfqobQq86/30/2025 12:58 PM Rosario Mccullough RN documented as of this encounter Mental Status * Because of a physical, mental, or emotional condition, do you have serious difficulty concentrating, remembering, or making decisions?AnswerEntry Date JuxueaGr96/30/2025 12:58 PM Rosario Mccullough RN documented in this encounter Plan of Treatment DateTypeDepartmentCare Team (Latest Contact Info)Bmflubuaglh55/07/2025 4:00 PM ESTOffice Visit Otolaryngology [address] [place] [address] Sherice Castrejon MD [address] [place] [address] follow updocumented as of this encounter Visit Diagnoses Not on filedocumented in this encounter Care Teams Team MemberRelationshipSpecialtyStart DateEnd Facundo Nina MD [address] [address] PCP - GeneralPulmonary and Critical Care Medicine06/03/24documented as of this encounter
--- OUTSIDE RECORDS SUMMARY | 2025-08-25 16:57 | XMS_ITS | Clinical Summary ---
Author Organization [employer] tem Address [id number] [address] 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use with MDI as directed 1 each 03/19/2022ctive compressor, for nebulizer (DEVILBISS PULMO-AIDE COMPRESSR) device Indications:Cystic fibrosis ([facility])Per CF guidelines please dispense pulmoaide to nebulize inhaled medications 1 each 09/10/2022ctive syringe with needle, safety 10 mL 18 gauge x 1 1/2 syringe To be used to reconstitute medication. 28 each ctive compressor, for nebulizer device Indications:Cystic fibrosis ([facility])Please dispense [place] nebulizer for Inhaled medications . 1 each 09/16/2022ctive fluticasone propionate (FLONASE) 50 mcg/actuation nasal spray Indications:Cystic fibrosis of the lung ([facility])Administer 1 spray into each nostril in the morning. 16 g 1103Active MVW COMPLETE FORMUL MULTIVIT 1,500-1,000 unit-mcg tablet,chewable Indications:Cystic fibrosis ([facility])Chew 2 tablets and swallow in the morning. (Woodward flavor). 60 tablet 1102/15/2023Active sodium chloride (OCEAN) 0.65 % nasal spray Indications:Cystic fibrosis of the lung ([facility])Administer 2 sprays into each nostril 6 (six) times a day. 50 mL 12/04/2022ctive nebulizers [facility] [place] Indications:Cystic fibrosis ([facility])Please dispense an altera handset and neb cups for [place] 1 each ctive nebulizers [facility] [place] Indications:Cystic fibrosis ([facility])Please dispense altera hand set for [place] nebulization 1 each 07/07/2023ctive nebulizers [facility] [place] Indications:Cystic fibrosis ([facility])Please dispense 1 Altera nebulizer device to use with [place] nebulized solution. 1 each ctive aztreonam lysine (CAYSTON) 75 mg/mL solution for nebulization Inhale 75 mg by nebulization every 8 (eight) hours.Active sod lpodf-repvxh-loarkg bottle (AYR NASAL RINSE) packet with rinse device nasal solution Administer 1 packet into each nostril in the morning and 1 packet before bedtime. 30 each ctive EPINEPHrine (EPIPEN) 0.3 mg/0.3 mL auto-injector Indications:ABPA (allergic bronchopulmonary aspergillosis) ([facility]),Severe persistent asthma without complication ([facility])Inject 0.3 mL (0.3 mg total) into the appropriate muscle as needed (anaphylaxis). 2 each ctive lfcbsgiooqn-ftkvhmtylx-upbfagi (TRIKAFTA) 100-50-75 mg(d) /150 mg (n) tablets, sequential Indications:Cystic fibrosis ([facility])Take 2 tablets in the morning and 1 tablet at night 84 tablet ctive fluticasone propion-salmeteroL (AIRDUO RESPICLICK) 232-14 mcg/actuation aerosol powdr breath activated Indications:Cystic fibrosis ([facility])Inhale 1 puff in the morning and 1 puff before bedtime. 1 each ctive budesonide (PULMICORT) 1 mg/2 mL nebulizer solution Indications:Cystic fibrosis ([facility]),ABPA (allergic bronchopulmonary aspergillosis) ([facility]),Moderate persistent asthma without complication,Steroid dependent ([facility])Inhale 2 mL (1 mg total) by nebulization once daily. 60 mL ctive predniSONE (DELTASONE) 5 mg tablet Indications:ABPA (allergic bronchopulmonary aspergillosis) ([facility])Take 1 tablet (5 mg total) by mouth every other day. 30 tablet ctive omeprazole (PriLOSEC OTC) 20 mg tablet,delayed release (DR/EC) Indications:Cystic fibrosis of pancreas ([facility])TAKE 1 TABLET (20 MG TOTAL) BY MOUTH IN THE MORNING. 30 tablet ctive ALLERGY RELIEF, LORATADINE, 10 mg tablet Indications:Cystic fibrosis of the lung ([facility])TAKE 1 TABLET (10 MG TOTAL) BY MOUTH IN THE MORNING. 30 tablet ctive syqhty-dyvhdogd-bkmuxbd (CREON) 24,000-76,000 -120,000 unit capsule,delayed release(DR/EC) Indications:Cystic fibrosis with intestinal manifestation ([facility])TAKE 2 CAPSULES WITH BREAKFAST AND LUNCH, 2-3 CAPSULES WITH DINNER , AND 1 CAPSULE WITH SNACKS MAX 12 CAPSULES PER DAY 360 capsule ctive PULMOZYME 1 mg/mL nebulizer solution Indications:Cystic fibrosis of the lung ([facility])INHALE CONTENTS OF ONE VIAL VIA NEBULIZER ONCE DAILY. KEEP REFRIGERATED UNTIL USE. 75 mL ctive albuterol (VENTOLIN HFA) 90 mcg/actuation inhaler Indications:Cystic fibrosis of the lung ([facility])INHALE BY MOUTH 2 PUFFS DAILY AND EVERY 4 HOURS NEEDED 18 g ctive sodium chloride 3 % nebulizer solution Indications:Cystic fibrosis of the lung ([facility])INHALE CONTENTS OF ONE VIAL (4ML) BY NEBULIZATION TWICE DAILY IN THE MORNING AND BEFORE BEDTIME. 240 mL ctive cholecalciferol, vitamin D3, (VITAMIN D3) 5,000 units capsule Indications:Cystic fibrosis of the lung ([facility])TAKE 1 CAPSULE (5,000 UNITS TOTAL) BY MOUTH IN THE MORNING. 30 capsule ctive ulfjss-acgosyvb-ukqlehr (CREON) 24,000-76,000 -120,000 unit capsule,delayed release(DR/EC) Indications:Cystic fibrosis with intestinal manifestation ([facility])2 capsules with breakfast and lunch, 2-3 capsules with dinner , and 1 capsule with snacks. Allowingfor meals and 3 snacks per day. 360 capsule 11012/15/2023ctive miscellaneous medical supply tray Apply 1 Application topically as needed (Maintain PICC line per agency protocol). 100 each 12012/15/2023ctive heparin lock flush, porcine, injection 100 unit/mL solution Infuse 1 mL (100 Units total) into a venous catheter every 30 (thirty) days. Infuse 3-5 ml once monthly into Mediport 5 mL 12/15/2023ctive tiotropium bromide (SPIRIVA RESPIMAT) 1.25 mcg/actuation mist Indications:Cystic fibrosis of the lung ([facility])INHALE 2 PUFFS (2.5MCG) IN THE MORNING. 4 g 6012/22/2023ctive omalizumab (XOLAIR) 150 mg/mL syringe Indications:ABPA (allergic bronchopulmonary aspergillosis) ([facility]),Severe persistent asthma without complication ([facility]),Elevated IgE level,Steroid dependent ([facility])Inject 2 mL (300 mg total) under the skin every 14 (fourteen) days. 4 mL ctive nebulizers (JL LC D NEBULIZER) [facility] [place] Indications:Cystic fibrosis of the lung ([facility])Please dispense a jl and mask set up per CF guidelines for each inhaled medication 1) Albuterol 2) Fortaz 3) Pulmozyme 4) Pulmicort 5) Hypertonic saline 3% 10 each ctive sterile water, PF, solution Indications:Cystic fibrosis (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 on 12/19/2020 culture Chronic hglwkkfxvyco83/17/2020Moderate persistent asthma without complication 09/07/2020Infection with Stenotrophomonas maltophilia resistant to multiple drugs12/01/2019Pseudomonas aeruginosa xkukmwtqldko45/13/2019MSSA (methicillin- susceptible Staphylococcus aureus) tjavqqmdvgkh80/07/2019Cystic fibrosis 08/29/2005 Overview (09/03/2018): 1154insTC/I7988B Pancreatic xjsyigkwbujyx25/10/2005 Resolved Problems ProblemNoted DateDiagnosed DateResolved DateExacerbation of cystic fibrosis /ystic fibrosis sjlrricfdyns69/04/202206/3Allergy desensitization mwmualk09/ystic fibrosis exacerbation /ystic fibrosis with pulmonary vmklwnxlasyy76/15/2020 12/25/2020xacerbation of cystic nropeocf38 Immunizations ImmunizationAdministration DatesNext DueCovid-19, Mrna, Lnp-s, Pf, 30 Mcg/0.3 Ml Dose, Valerio-wdhyooo97/19/0324QQsC58/19/2008,09/12/2004,2003,2003, 2003DTaP, Xhbwfqinxdg41/19/2008,2003,2003H1N1 Inj11/15/2009 H1N1 Inj Preservative Free11/15/2009HPV Fbkkxfwabhug84/05/2015HPV, Unspecified 12/22/2014Hep A, 2 Dose03/07/2008,08/27/2007Hep B / HIB06/18/2004Hep B, Adolescent or Zrfdrsgqd2003,2003Hepatitis A003/07/2008,08/27/2007 Hepatitis B006/18/2004,2003,2003HiB09/12/2004,06/18/2004,2003, 2003Hib (PRP-T)09/12/2004IPV03/07/2008,03/26/2004,2003,2003 Influenza (IM) Preservative Free07/02/2016,08/26/2013,06/23/2012,08/05/2011 Influenza Whole07/02/2016,08/29/2005Influenza, Im Pediatric (Pf)10/11/2014 Influenza, Im Trivalent Rutnwljhpxbp39/12/2010,07/25/2009,08/30/2008Influenza, Injectable, Zotplxngkkri05/23/2014Influenza, Injectable, quadrivalent (PF) 08/14/2023,08/15/2022,08/29/2020,09/23/2019,09/03/2018,08/12/2017Influenza, Biotehgsbzw61/23/2014,08/26/2013,06/23/2012,08/05/2011,07/31/2010MMR11/08/2008, 09/12/2004Meningococcal Depneesuz89/05/2015Meningococcal VLI0L9212/22/2014 Pneumococcal Rdplsqqlg80/24/2004,2003,2003,2003Pneumococcal Conjugate 13-Gtsizk7107/02/2016Pneumococcal, Dziuqlmrwum58/27/2010,2003, 2003Polio, Ajvtrhoksxe2003,2003Tdap12/22/2014Varicella 11/15/2009,06/18/2004 Family History Medical HistoryRelationNameCommentsAsthmaMaternal AuntCancerMaternal Grandfather RelationNameStatusCommentsFatherSamuelAliveMaternal AuntMaternal Grandfather MotherDeloraAlive Social History Tobacco UseTypesPacks/DayYears UsedDateSmoking Tobacco: NeverSmokeless Tobacco: Never Tobacco Cessation:Counseling Given: Not Answered Comments:No smoke exposure Alcohol UseStandard Drinks/WeekCommentsNo0 (1 standard drink = 0.6 oz pure alcohol)[facility] UtilitiesAnswerDate RecordedIn the past 12 months has the [email or web address], gas, oil, or water [employer] threatened to shut off services in your home?No 12/02/2023UDIT-CAnswerDate RecordedQ1: How often do you have a drink containing alcohol?Never11/25/2023Q2: How many drinks containing alcohol do you have on a typical day when you are drinking?Patient does not drink11/25/2023Q3: How often do you have six or more drinks on one occasion?Never11/25/2023HQ-2AnswerDate RecordedTotal Kdmkq5734PRAPARE - TransportationAnswerDate RecordedIn the past 12 months, has lack of transportation kept you from medical appointments or from getting medications?No12/02/2023In the past 12 months, has lack of transportation kept you from meetings, work, or from getting things needed for daily living?No12/02/2023Housing InstabilityAnswerDate RecordedAre you worried or concerned that in the next two months you may not have stable housing that you own, rent or stay in as a part of a household?No4ChildcareAnswer Date OhgguxgdRzxgynyyxKfnphqa68/10/2019EmploymentAnswerDate RecordedEmployment Hyxtqul6203/29/2019Hunger ScreeningAnswerDate RecordedWithin the past 12 months we worried whether our food would run out before we got money to buy more.Never True02/10/2024Within the past 12 months the food we bought just didn't last and we didn't have money to get more.Never True4Purpose - LifeAnswerDate RecordedPurpose and direction in dcsiXwuwiim41/12/2021CommentsNoSex and Gender InformationValueDate RecordedSex Assigned at BirthNot on fileLegal Sex Erutyr1605/23/2015 4:18 PM EDTGender IdentityNot on fileSexual OrientationNot on file Last Filed Vital Signs Vital SignReadingTime TakenCommentsBlood Wyxfyehs404/10969 12:15 AM EDT Dxwuj58497/24/2024 1:00 AM ZKMAynbsgrgkwt61.7 ??C (99.8 ??F)05/11/2024 11:35 PM EDTRespiratory Oosy473505/12/2024 1:00 AM EDTOxygen Jzyrmpyvwv72%05/12/2024 12:45 AM EDTInhaled Oxygen Concentration--Fddrdf52.5 kg (142 lb 3.2 oz)05/11/2024 11:35 PM BIQAtmwof063.5 cm (5' 2 )05/11/2024 11:35 PM EDTBody Mass Index26.01 05/11/2024 11:35 PM EDT Plan of Treatment Health MaintenanceDue DateLast DoneCommentsPap Smear2024epression Nkgpkbzby18/06/984100/TaP,Tdap and Td Vaccines (7 - Td or Tdap) /02/2015, 03/07/2008, 03/07/2008, Additional history existsAdult BMI Jusgfrvqq54/23/Tobacco Bcuqqrgea25/23/95780105/11/2024OVID-19 Vaccine ( season)/, 02/21/2021, 01/31/2021 Influenza Dlkemxr73/, 08/15/2022, 08/29/2020, Additional history exists Goals GoalPatient Goal TypeAssociated ProblemsRecent ProgressPatient-Stated?Author Resp s/s to improve GeneralYesAlMarcella wagoner RN Note: Evaluation of progress towards goal: Resp s/s to improve Increase physical activity LifestyleDaina Lawler, BASILIO Note: Evaluation of progress towards goal: Pt started online schooling. She will get up for a short walk in between lessons. Medical Devices ImplantedTypeAreaManufacturerDevice IdentifierShelf Expiration DateModel / Serial / LotPort Powerport Clrvu 8fr Intmd Kt Slim Implinfn Lf - [id number] Implanted:Qty: 1 on 12/11/2023 by Scooby [facility]Port[facility] Peripheral [id number] / / [id number] Additional Health Concerns InfectionOnset DateLast IndicatedOther MDRO Comment:CYSTIC F Insurance Advance Directives * Full Code (Latest Code Status on File) Date ActivatedDate InactivatedComments11/24/2023 11:20 PM2 8:01 PM * Full Code Date ActivatedDate ZqvdhaeuptjAmtwryqu91/2/2023 6:01 PM10 9:09 PM * Full Code Date ActivatedDate InactivatedComments03/28/2023 8:48 AM04/10/2023 7:58 PM * Full Code Date ActivatedDate InactivatedComments07/18/2022 3:11 PM10 5:00 PM * Full Code Date ActivatedDate InactivatedComboston [facility] center05/23/2022 7:22 PM06/07/2022 2:52 PM
[2025-08-25 18:14] LABS: Alanine Aminotransferase 12 U/L (14-59); Albumin Globulin Ratio 0.8; Albumin Level 3.4 g/dL (3.4-5.0); Alkaline Phosphatase 70 U/L (46-116); Anion Gap 15.1; Aspartate Amino Transferase 15 U/L (15-37); Blood Urea Nitrogen 9.0 mg/dL (7.0-18.0); Calcium 9.2 mg/dL (8.5-10.1); Carbon Dioxide 23.7 mmol/L (21.0-32.0); Chloride 105 mmol/L (98-107); Estimated GFR (African America >60 (>=60 mL/min/1.73m^2); Estimated GFR (Non-African Ame >60 (>=60 mL/min/1.73m^2); Globulin 4.4 g/dL; Glucose 88 mg/dL (74-106); Magnesium 1.7 mg/dL (1.8-2.4); Potassium 3.8 mmol/L (3.5-5.1); Sodium 140 mmol/L (136-145); Total Protein 7.8 g/dL (6.4-8.2)
== END 2025-08-25 16:52 | disposition home or self-care (01) ==
LOC: LAB 16:52
DX: E84.8 Cystic fibrosis with other manifestations (principal)
CPT/HCPCS: 36415; 80053; 83735

== ENCOUNTER 2025-09-07 16:47 | Outpatient (RCR) | payer OTHER, SELFPAY ==
--- OUTSIDE RECORDS SUMMARY | 2025-09-02 15:00 | XMS_ITS | Encounter Summary ---
Author Organization [employer] tem Address [id number] [address] [place] [address] Care Team Providers Care Band Tumbler Name Role Phone Unavailable Primary Care Provider Unavailabl e Reason for Visit * ReasonCommentsPort/VAD CarePort flush Encounter Details DateTypeDepartmentCare Team (Latest Contact Info)Jhvysfdrfbh62/14/2025 3:00 PM ESTInfusion Terrie Tolbert [facility] - Medical Oncology [address] [place] [phone] Cystic fibrosis ([facility]) (Primary Dx) Social History Tobacco UseTypesPacks/DayYears UsedDateSmoking Tobacco: NeverSmokeless Tobacco: Never Comments:No smoke exposure Alcohol UseStandard Drinks/WeekCommentsNo0 (1 standard drink = 0.6 oz pure alcohol)[facility] UtilitiesAnswerDate RecordedIn the past 12 months has the [employer], gas, oil, or water [employer] threatened to shut off services in your home?No 12/02/2023UDIT-CAnswerDate RecordedQ1: How often do you have a drink containing alcohol?Never11/25/2023Q2: How many drinks containing alcohol do you have on a typical day when you are drinking?Patient does not drink11/25/2023Q3: How often do you have six or more drinks on one occasion?Never11/25/2023HQ-2AnswerDate RecordedTotal Rxsrg090RAPARE - TransportationAnswerDate RecordedIn the past 12 months, has lack of transportation kept you from medical appointments or from getting medications?No02/13/2024In the past 12 months, has lack of transportation kept you from meetings, work, or from getting things needed for daily living?No12/02/2023Housing InstabilityAnswerDate RecordedAre you worried or concerned that in the next two months you may not have stable housing that you own, rent or stay in as a part of a household?No4ChildcareAnswer Date OczrdofhAroylugdoBkqmvoz77/10/2019EmploymentAnswerDate RecordedEmployment Bluwgpg9503/29/2019Hunger ScreeningAnswerDate RecordedWithin the past 12 months we worried whether our food would run out before we got money to buy more.Never True02/10/2024Within the past 12 months the food we bought just didn't last and we didn't have money to get more.Never True02/10/2024urpose - LifeAnswerDate RecordedPurpose and direction in caowAitithj30/12/2021CommentsNoSex and Gender InformationValueDate RecordedSex Assigned at BirthNot on fileLegal Sex Cehzam5905/23/2015 4:18 PM EDTGender IdentityNot on fileSexual OrientationNot on filedocumented as of this encounter Progress Notes * Emilie Babin RN - 09/02/2025 3:00 PM EST Port flushed per protocol. documented in this encounter Plan of Treatment DateTypeDepartmentCare Team (Latest Contact Info)Cgknyntaqzm45/12/2025 3:00 PM ESTInfusion Terrie Tolbert [facility] - Medical Oncology [facility] [place] [phone] documented as of this encounter Goals GoalPatient Goal TypeAssociated ProblemsRecent ProgressPatient-Stated?Author Resp s/s to improve GeneralYesAlMarcella wagoner RN Note: Evaluation of progress towards goal: Resp s/s to improve Increase physical activity LifestyleDaina Lawler LSW Note: Evaluation of progress towards goal: Pt started online schooling. She will get up for a short walk in between lessons. documented as of this encounter Visit Diagnoses Diagnosis Cystic fibrosis ([facility] Primary documented in this encounter Administered Medications Medication OrderMAR ActionAction DateDoseRateSite sodium chloride 0.9 % flush 20 mL 20 mL, intravenous, As needed, line care, to lumen(s) after lab draws, blood infusions, and meds known to precipitate., Starting on Fri09/02/25 at 1457 Indications:Cystic fibrosis ([facility])Given09/02/2025 3:01 PM EST20 mLdocumented in this encounter Additional Health Concerns InfectionOnset DateLast IndicatedResolved TimeOther MDRO Comment:CYSTIC F ssessmentNoted TimePHQ-9 Depression Total Score: 0 11/25/2023 12:32 PM ESTdocumented as of this encounter
--- OUTSIDE RECORDS SUMMARY | 2025-09-07 16:58 | XMS_ITS | Clinical Summary ---
Author Organization [employer] tem Address [id number] [place] [address] Care Team Providers Care Mandolin Repairer Name Role Phone Unavailable Primary Care Provider Unavailabl e Allergies Active AllergyReactionsCriticalityNoted DateComments Sulfamethoxazole-ZelogxnmnhvzAxvyJtf98/12/2020NafcillinRash,Facial Swelling Wcxwrq2804/01/2023 Medications MedicationSigDispense QuantityRefillsLast FilledStart DateEnd DateStatus inhalational spacing device (AEROCHAMBER WITH FLOWSIGNAL) spacer Indications:Cystic fibrosis of the lung ([facility])use with MDI as directed 1 each 03/19/2022ctive compressor, for nebulizer (DEVILBISS PULMO-AIDE COMPRESSR) device Indications:Cystic fibrosis ([facility])Per CF guidelines please dispense pulmoaide to nebulize inhaled medications 1 each 09/10/2022ctive syringe with needle, safety 10 mL 18 gauge x 1 1/2 syringe To be used to reconstitute medication. 28 each ctive compressor, for nebulizer device Indications:Cystic fibrosis ([facility])Please dispense [place] nebulizer for Inhaled medications . 1 each 09/16/2022ctive fluticasone propionate (FLONASE) 50 mcg/actuation nasal spray Indications:Cystic fibrosis of the lung ([facility])Administer 1 spray into each nostril in the morning. 16 g 1103Active MVW COMPLETE FORMUL MULTIVIT 1,500-1,000 unit-mcg tablet,chewable Indications:Cystic fibrosis ([facility])Chew 2 tablets and swallow in the morning. ([place] flavor). 60 tablet 1102/15/2023Active sodium chloride (OCEAN) 0.65 % nasal spray Indications:Cystic fibrosis of the lung ([facility])Administer 2 sprays into each nostril 6 (six) times a day. 50 mL 12/04/2022ctive nebulizers [facility] Indications:Cystic fibrosis ([facility])Please dispense an altera handset and neb cups for [place] 1 each ctive nebulizers [facility] Indications:Cystic fibrosis ([facility])Please dispense altera hand set for [place] nebulization 1 each 07/07/2023ctive nebulizers [facility] Indications:Cystic fibrosis ([facility])Please dispense 1 Altera nebulizer device to use with [place] nebulized solution. 1 each ctive aztreonam lysine ([place]ON) 75 mg/mL solution for nebulization Inhale 75 mg by nebulization every 8 (eight) hours.Active sod fiqfl-hhgjil-jwprvr bottle (AYR NASAL RINSE) packet with rinse device nasal solution Administer 1 packet into each nostril in the morning and 1 packet before bedtime. 30 each ctive EPINEPHrine (EPIPEN) 0.3 mg/0.3 mL auto-injector Indications:ABPA (allergic bronchopulmonary aspergillosis) ([facility]),Severe persistent asthma without complication ([facility])Inject 0.3 mL (0.3 mg total) into the appropriate muscle as needed (anaphylaxis). 2 each ctive gufzyewfgma-pesvrtxiln-srbqbvn (TRIKAFTA) 100-50-75 mg(d) /150 mg (n) tablets, sequential Indications:Cystic fibrosis ([facility])Take 2 tablets in the morning and 1 tablet at night 84 tablet ctive fluticasone propion-salmeteroL (AIRDUO RESPICLICK) 232-14 mcg/actuation aerosol powdr breath activated Indications:Cystic fibrosis ([facility])Inhale 1 puff in the morning and 1 puff before bedtime. 1 each ctive budesonide (PULMICORT) 1 mg/2 mL nebulizer solution Indications:Cystic fibrosis ([facility]),ABPA (allergic bronchopulmonary aspergillosis) ([facility]),Moderate persistent asthma without complication,Steroid dependent ([facility])Inhale 2 mL (1 mg total) by nebulization once daily. 60 mL ctive predniSONE (DELTASONE) 5 mg tablet Indications:ABPA (allergic bronchopulmonary aspergillosis) ([facility])Take 1 tablet (5 mg total) by mouth every other day. 30 tablet ctive omeprazole (PriLOSEC OTC) 20 mg tablet,delayed release (DR/EC) Indications:Cystic fibrosis of pancreas ([facility])TAKE 1 TABLET (20 MG TOTAL) BY MOUTH IN THE MORNING. 30 tablet ctive ALLERGY RELIEF, LORATADINE, 10 mg tablet Indications:Cystic fibrosis of the lung ([facility])TAKE 1 TABLET (10 MG TOTAL) BY MOUTH IN THE MORNING. 30 tablet ctive hvtyze-kbqaerbh-ydngjbk (CREON) 24,000-76,000 -120,000 unit capsule,delayed release(DR/EC) Indications:Cystic fibrosis with intestinal manifestation ([facility])TAKE 2 CAPSULES WITH BREAKFAST AND LUNCH, 2-3 CAPSULES WITH DINNER , AND 1 CAPSULE WITH SNACKS MAX 12 CAPSULES PER DAY 360 capsule ctive PULMOZYME 1 mg/mL nebulizer solution Indications:Cystic fibrosis of the lung ([facility])INHALE CONTENTS OF ONE VIAL VIA NEBULIZER ONCE DAILY. KEEP REFRIGERATED UNTIL USE. 75 mL ctive albuterol (VENTOLIN HFA) 90 mcg/actuation inhaler Indications:Cystic fibrosis of the lung ([facility])INHALE BY MOUTH 2 PUFFS DAILY AND EVERY 4 HOURS NEEDED 18 g ctive sodium chloride 3 % nebulizer solution Indications:Cystic fibrosis of the lung ([facility])INHALE CONTENTS OF ONE VIAL (4ML) BY NEBULIZATION TWICE DAILY IN THE MORNING AND BEFORE BEDTIME. 240 mL ctive cholecalciferol, vitamin D3, (VITAMIN D3) 5,000 units capsule Indications:Cystic fibrosis of the lung ([facility])TAKE 1 CAPSULE (5,000 UNITS TOTAL) BY MOUTH IN THE MORNING. 30 capsule ctive lqcvzn-cmljggbp-hlzwpgz (CREON) 24,000-76,000 -120,000 unit capsule,delayed release(DR/EC) Indications:Cystic fibrosis with intestinal manifestation ([facility])2 capsules with breakfast and lunch, 2-3 capsules [...] mcg/actuation mist Indications:Cystic fibrosis of the lung ([facility])INHALE 2 PUFFS (2.5MCG) IN THE MORNING. 4 g 6012/22/2023ctive omalizumab (XOLAIR) 150 mg/mL syringe Indications:ABPA (allergic bronchopulmonary aspergillosis) ([facility]),Severe persistent asthma without complication ([facility]),Elevated IgE level,Steroid dependent ([facility])Inject 2 mL (300 mg total) under the skin every 14 (fourteen) days. 4 mL ctive nebulizers (JL LC D NEBULIZER) [facility] Indications:Cystic fibrosis of the lung ([facility])Please dispense a jl and mask set up per CF guidelines for each inhaled medication 1) Albuterol 2) Fortaz 3) Pulmozyme 4) Pulmicort 5) Hypertonic saline 3% 10 each ctive sterile water, PF, solution Indications:Cystic fibrosis ([facility])USE 10ML TO RECONSTITUTE 1 GRAM OF CEFTAZIDIME TWICE DAILY 560 mL ctive Active Problems ProblemNoted DateDiagnosed DateCystic fibrosis zpezkmgpqdbn71/05/2024ystic fibrosis with pulmonary fenhlsynzufx52/08/2022MRSA slvlmedoetbf28/08/2021 Overview (03/28/2023): 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 on 12/19/2020 culture Chronic /17/2020Moderate persistent asthma without complication 09/07/2020Infection with Stenotrophomonas maltophilia resistant to multiple drugs12/01/2019Pseudomonas aeruginosa uajnwbltjfgs06/13/2019MSSA (methicillin- susceptible Staphylococcus aureus) uqhtrxeocprv50/07/2019Cystic fibrosis 08/29/2005 Overview (09/03/2018): 1154insTC/C4879T Pancreatic inwhbcihspwzm65/10/2005 Resolved Problems ProblemNoted DateDiagnosed DateResolved DateExacerbation of cystic fibrosis /ystic fibrosis jswfpljizooh12/04/202206/3Allergy desensitization /ystic fibrosis exacerbation /ystic fibrosis with pulmonary esrkdtgucrct67/15/2020 12/25/2020xacerbation of cystic ltpfadcd32 Encounters DateTypeDepartmentCare BrkqRrjgwkwztyz27/14/2025 3:00 PM ESTInfusion [facility] [place] [address] Cystic fibrosis ([facility]) (Primary Dx)09/01/2025Travelfrom Last 3 Months Immunizations ImmunizationAdministration DatesNext DueCovid-19, Mrna, Lnp-s, Pf, 30 Mcg/0.3 Ml Dose, Valerio-vchuofq02/19/8411VDiT57/19/2008,09/12/2004,2003,2003, 2003DTaP, Cwgbhjmctus99/19/2008,2003,2003H1N1 Inj11/15/2009 H1N1 Inj Preservative Free11/15/2009HPV Njjdijmwgqkf36/05/2015HPV, Unspecified 12/22/2014Hep A, 2 Dose03/07/2008,08/27/2007Hep B / HIB06/18/2004Hep B, Adolescent or Ipgowfwpk2003,2003Hepatitis A003/07/2008,08/27/2007 Hepatitis B006/18/2004,2003,2003HiB09/12/2004,06/18/2004,2003, 2003Hib (PRP-T)09/12/2004IPV03/07/2008,03/26/2004,2003,2003 Influenza (IM) Preservative Free07/02/2016,08/26/2013,06/23/2012,08/05/2011 Influenza Whole07/02/2016,08/29/2005Influenza, Im Pediatric (Pf)10/11/2014 Influenza, Im Trivalent Itrgjkcnuozo25/12/2010,07/25/2009,08/30/2008Influenza, Injectable, Yrxbzaowaozc43/23/2014Influenza, Injectable, quadrivalent (PF) 08/14/2023,08/15/2022,08/29/2020,09/23/2019,09/03/2018,08/12/2017Influenza, Homxuijdjlk25/23/2014,08/26/2013,06/23/2012,08/05/2011,07/31/2010MMR110/30/2007, 09/12/2004Meningococcal Joxkdjtrk10/05/2015Meningococcal OWG9E9612/22/2014 Pneumococcal Mnejtzbtu96/24/2004,2003,2003,2003Pneumococcal Conjugate 13-Ogzgpe9907/02/2016Pneumococcal, Oesrwzhylfp58/27/2010,2003, 2003Polio, Fgecelproeh2003,2003Tdap12/22/2014Varicella 11/15/2009,06/18/2004 Family History Medical HistoryRelationNameCommentsAsthmaMaternal AuntCancerMaternal Grandfather RelationNameStatusCommentsFatherSamuelAliveMaternal AuntMaternal Grandfather MotherDeloraAlive Social History Tobacco UseTypesPacks/DayYears UsedDateSmoking Tobacco: NeverSmokeless Tobacco: Never Tobacco Cessation:Counseling Given: Not Answered Comments:No smoke exposure Alcohol UseStandard Drinks/WeekCommentsNo0 (1 standard drink = 0.6 oz pure alcohol)C UtilitiesAnswerDate RecordedIn the past 12 months has the [employer], [employer], oil, or water company threatened to shut off services in your home?No 12/02/2023UDIT-CAnswerDate RecordedQ1: How often do you have a drink containing alcohol?Never11/25/2023Q2: How many drinks containing alcohol do you have on a typical day when you are drinking?Patient does not drink11/25/2023Q3: How often do you have six or more drinks on one occasion?Never11/25/2023HQ-2AnswerDate RecordedTotal Ptjhb563RAPARE - TransportationAnswerDate RecordedIn the past 12 months, [...] stay in as a part of a household?No12/02/2023hildcareAnswer Date YckhqovkUnepjvbnzUxkpgpb57/10/2019EmploymentAnswerDate RecordedEmployment Qtuygsf9603/29/2019Hunger ScreeningAnswerDate RecordedWithin the past 12 months we worried whether our food would run out before we got money to buy more.Never True02/10/2024Within the past 12 months the food we bought just didn't last and we didn't have money to get more.Never True02/10/2024urpose - LifeAnswerDate RecordedPurpose and direction in wfjmFcnzzch41/12/2021CommentsNoSex and Gender InformationValueDate RecordedSex Assigned at BirthNot on fileLegal Sex Kxhark3905/23/2015 4:18 PM EDTGender IdentityNot on fileSexual OrientationNot on file Last Filed Vital Signs Vital SignReadingTime TakenCommentsBlood Fdbixjug250/72534 12:15 AM EDT Fvrgj50562 1:00 AM WXUCjyajemxzrc41.7 ??C (99.8 ??F)05/11/2024 11:35 PM EDTRespiratory Cbum3116 1:00 AM EDTOxygen Jcovztohcg10%05/12/2024 12:45 AM EDTInhaled Oxygen Concentration--Rlcsnn66.5 kg (142 lb 3.2 oz)05/11/2024 11:35 PM DSAIgyctk536.5 cm (5' 2 )05/11/2024 11:35 PM EDTBody Mass Index26.01 05/11/2024 11:35 PM EDT Plan of Treatment DateTypeDepartmentCare Team (Latest Contact Info)Tbqdysugfgd47/12/2025 3:00 PM ESTInfusion [facility] [address] [place] [address] Health MaintenanceDue DateLast DoneCommentsPap Smear2024epression Wjzgxidea08/06/660146/TaP,Tdap and Td Vaccines (7 - Td or Tdap) /02/2015, 03/07/2008, 03/07/2008, Additional history existsAdult BMI Vaqhfiaro00/23/178810/Tobacco Nusaexscb95/23/189946/OVID-19 Vaccine ( season)/, 02/21/2021, 01/31/2021 Influenza IotuehlOflifjbbm48/24/2025, 08/14/2023, 08/15/2022, Additional history exists Goals GoalPatient Goal TypeAssociated ProblemsRecent ProgressPatient-Stated?Author Resp s/s to improve GeneralYesAlMarcella wagoner, RN Note: Evaluation of progress towards goal: Resp s/s to improve Increase physical activity LifestyleDaina Lawler LSW Note: Evaluation of progress towards goal: Pt started online schooling. She will get up for a short walk in between lessons. Medical Devices ImplantedTypeAreaManufacturerDevice IdentifierShelf Expiration DateModel / Serial / LotPort Powerport Clrvu 8fr Intmd Kt Slim Implinfn Lf - [id number] Implanted:Qty: 1 on 12/11/2023 by Scooby Vásquez MD at [facility] Peripheral [id number] / / [id number] Additional Health Concerns InfectionOnset DateLast IndicatedOther MDRO Comment:CYSTIC F Insurance Advance Directives * Full Code (Latest Code Status on File) Date ActivatedDate InactivatedComments11/24/2023 11:20 PM2 8:01 PM * Full Code Date ActivatedDate DpltxbmaqfuXwgqbory23/2/2023 6:01 PM10 9:09 PM * Full Code Date ActivatedDate InactivatedComments03/28/2023 8:48 AM04/10/2023 7:58 PM * Full Code Date ActivatedDate InactivatedComments07/18/2022 3:11 PM10 5:00 PM * Full Code Date ActivatedDate InactivatedComments05/23/2022 7:22 PM06/07/2022 2:52 PM
--- OUTSIDE RECORDS SUMMARY | 2025-09-07 16:58 | XMS_ITS | Encounter Summary ---
Author Organization [employer] tem Address [id number] [address] [place] [address] Care Team Providers Care Drier Operator Head Name Role Phone Unavailable Primary Care Provider Unavailabl e Encounter Details DateTypeDepartmentCare Team (Latest Contact Info)Rayxoptrgao73/13/2025Travel Social History Tobacco UseTypesPacks/DayYears UsedDateSmoking Tobacco: NeverSmokeless Tobacco: Never Comments:No smoke exposure Alcohol UseStandard Drinks/WeekCommentsNo0 (1 standard drink = 0.6 oz pure alcohol)[facility] UtilitiesAnswerDate RecordedIn the past 12 months has the electric, gas, oil, or water company threatened to shut off services in your home?No 12/02/2023UDIT-CAnswerDate RecordedQ1: How often do you have a drink containing alcohol?Never11/25/2023Q2: How many drinks containing alcohol do you have on a typical day when you are drinking?Patient does not drink11/25/2023Q3: How often do you have six or more drinks on one occasion?Never11/25/2023HQ-2AnswerDate RecordedTotal Sczda421RAPARE - TransportationAnswerDate RecordedIn the past 12 months, [...] as a part of a household?No4ChildcareAnswer Date DkwmgggfIsocskleqBlwzqlm73/10/2019EmploymentAnswerDate RecordedEmployment Gihlbyu4603/29/2019Hunger ScreeningAnswerDate RecordedWithin the past 12 months we worried whether our food would run out before we got money to buy more.Never True02/10/2024Within the past 12 months the food we bought just didn't last and we didn't have money to get more.Never True4Purpose - LifeAnswerDate RecordedPurpose and direction in qrecIsciabq59/12/2021CommentsNoSex and Gender InformationValueDate RecordedSex Assigned at BirthNot on fileLegal Sex Ftvhar5605/23/2015 4:18 PM EDTGender IdentityNot on fileSexual OrientationNot on filedocumented as of this encounter Plan of Treatment DateTypeDepartmentCare Team (Latest Contact Info)Xlreidhfkhs23/12/2025 3:00 PM ESTInfusion [facility] - [facility] On[facility] [address] [place] [phone] documented as of this encounter Goals GoalPatient Goal TypeAssociated ProblemsRecent ProgressPatient-Stated?Author Resp s/s to improve GeneralYesAlMarcella wagoner, RN Note: Evaluation of progress towards goal: Resp s/s to improve Increase physical activity LifestyleNoDaina Fuentes, BASILIO Note: Evaluation of progress towards goal: Pt started online schooling. She will get up for a short walk in between lessons. documented as of this encounter Visit Diagnoses Not on filedocumented in this encounter Additional Health Concerns InfectionOnset DateLast IndicatedResolved TimeOther MDRO Comment:CYSTIC F ssessmentNoted TimePHQ-9 Depression Total Score: 0 11/25/2023 12:32 PM ESTdocumented as of this encounter
[2025-09-07 17:23] LABS: Hematocrit 34.7 % (36.0-48.0); Hemoglobin 11.5 g/dL (12.0-16.0); Immature Granulocytes Abs Auto 0.03 10^3/uL (0.00-0.03); Immature Granulocytes Pct Auto 0.3 % (0.0-0.5); Lymphocytes Absolute Auto 1.7 10^3/uL (1.2-3.8); Mean Corpuscular HGB Conc 33.1 g/dL (29.9-35.2); Mean Corpuscular Hemoglobin 28.1 pg (26.7-34.0); Mean Corpuscular Volume 84.8 fL (81.0-99.0); Platelet Count 368 10^3/uL (150-450); Red Blood Count 4.09 10^6/uL (4.20-5.40); White Blood Count 9.7 10^3/uL (4.0-11.0)
[2025-09-07 17:41] LABS: Alanine Aminotransferase 21 U/L (14-59); Albumin Globulin Ratio 0.8; Albumin Level 3.3 g/dL (3.4-5.0); Alkaline Phosphatase 73 U/L (46-116); Anion Gap 12.5; Aspartate Amino Transferase 23 U/L (15-37); Blood Urea Nitrogen 7.0 mg/dL (7.0-18.0); Calcium 9.0 mg/dL (8.5-10.1); Carbon Dioxide 24.2 mmol/L (21.0-32.0); Chloride 109 mmol/L (98-107); Estimated GFR (African America >60 (>=60 mL/min/1.73m^2); Estimated GFR (Non-African Ame >60 (>=60 mL/min/1.73m^2); Globulin 4.2 g/dL; Glucose 124 mg/dL (74-106); Potassium 3.7 mmol/L (3.5-5.1); Sodium 142 mmol/L (136-145); Total Protein 7.5 g/dL (6.4-8.2)
== END 2025-09-19 08:25 | disposition home or self-care (01) ==
LOC: LAB 16:47
DX: E84.8 Cystic fibrosis with other manifestations (principal); E84.0 Cystic fibrosis with pulmonary manifestations; Z51.81 Encounter for therapeutic drug level monitoring
CPT/HCPCS: 36415; 80053; 80187; 82785; 85025